=== PATIENT | female | born 1950 | race Caucasian/White ===

== ENCOUNTER → 2019-10-21 14:17 | Outpatient (CLI) | payer OTHER, MEDICARE, SELFPAY ==
--- NOTE | ~2019-10-21 | DEXA_ITS ---
Bone Density Report Name: Sheree Cheng Age: 69 Sex: Female Ethnicity: White Date of : 1950 Indication: monitoring treatment; height loss; hysterectomy; postmenopausal Referring Provider: MARTHA SWEENEY Study: Bone densitometry was performed. Exam Date: October 21, 2019 Accession number: [id number] Bone Density: Region BMD T-score Z-score Classification AP Spine (L1-L4) 1.108 0.6 2.5 Normal Femoral Neck (Left) 0.896 0.4 2.1 Normal Total Hip (Left) 1.029 0.7 2.1 Normal Femoral Neck (Right) 0.864 0.1 1.8 Normal Total Hip (Right) 0.959 0.1 1.5 Normal Total Hip Mean 0.994 0.4 1.8 Normal World Health Organization criteria for BMD impression classify patients as: Normal (T-score at or above -1.0), Osteopenia (T-score between -1.0 and -2.5), or Osteoporosis (T-score at or below -2.5). 10-year Fracture Risk: FRAX not reported because: All T-scores for Spine Total, Hip Total, Femoral Neck at or above -1.0 Treated for osteoporosis Previous Exams: Region Exam Age BMD T-score BMD Change BMD Change Date g/cm2 vs Baseline vs Previous AP Spine(L1-L4) 10/21/2019 69 1.108 0.6 0.022 0.022 10/27/2008 58 1.087 0.4 Total Hip(Left) 10/21/2019 69 1.029 0.7 0.065* 0.065* 10/27/2008 58 0.965 0.2 Total Hip(Right) 10/21/2019 69 0.959 0.1 -0.007 -0.007 10/27/2008 58 0.966 0.2 *Denotes significance at 95% confidence level, LSC for AP Spine = 0.022 g/cm2, LSC for Total Hip = 0.027 g/cm2 Clinical Information Provided by Patient: Is being treated for osteoporosis Has used the following medications: HRT (i.e. estrogen/hormone therapy), Calcium Has the following medical conditions: Hysterectomy Patient maximum height was 65.75 Menopause Age: 35 No regular weight bearing exercise Does not regularly consume dairy products Drinks caffeinated beverages Onset of menses at age 16 Number of children 4 Impression: The patient has normal bone mass. No significant bone loss was observed. Discussion: PATIENT UNDER TREATMENT WITH NO SIGNIFICANT BMD LOSS SINCE LAST EXAM. In an untreated patient, BMD typically declines with age. A lack of decline or gain is usually a sign that treatment is efficacious and fracture risk is reduced. It is important to ask patients whether they are taking their medications and to encourage continued and appropriate compliance with their osteoporosi
--- NOTE | ~2019-10-21 | MM_ITS ---
EXAMINATION: MM scrn mackenzie implant BI w hugo HISTORY: Screening mammogram TECHNIQUE: Craniocaudal and mediolateral oblique 3-D tomosynthesis images with implant displacement a nd synthetic 2-D images were generated. Craniocaudal and mediolateral oblique views of the breasts wi thout implant displacement were obtained using full field digital mammography. CAD analysis was submi tted and interpreted. COMPARISON: 12/12/2011, 02/14/2009 BREAST PARENCHYMAL COMPOSITION: There are scattered areas of fibroglandular density. FINDINGS: There is no evidence of suspicious mass, calcification, or architectural distortion to sugg est malignancy in either breast. There has been no suspicious interval change. IMPRESSION: 1. No mammographic evidence of malignancy. 2. Recommend routine screening mammography in one year. BI-RADS Category 1: Negative Reviewed, dictated and finalized at location A. 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
== END ==
PROVIDERS: PCP Family Medicine; Visit Provider Obstetrics & Gynecology Gynecology
DX: Z12.31 Encounter for screening mammogram for malignant neoplasm of breast (principal); Z78.0 Asymptomatic menopausal state
CPT/HCPCS: 77063; 77067; 77080

== ENCOUNTER → 2020-11-03 01:04 | Outpatient (CLI) | payer MEDICARE, SELFPAY ==
[2020-11-03 19:48] LABS: SARS-CoV-2 RNA PCR Negative
== END ==
PROVIDERS: Family Provider Internal Medicine; PCP Family Medicine; Visit Provider Internal Medicine Gastroenterology
DX: Z01.812 Encounter for preprocedural laboratory examination (principal); Z20.822 Contact with and (suspected) exposure to COVID-19
CPT/HCPCS: C9803; U0003; U0005

== ENCOUNTER 2020-11-06 00:43 | Day surgery (SDC) | payer MEDICARE, SELFPAY ==
[2020-10-17 14:02] VITALS: BMI 33.3
[2020-11-06 08:04] VITALS: BP 136/89; PULSE 98; RESP 18; TEMP 36.4; O2SAT 98; BMI 33.4
[2020-11-06] MEDS: LACTATED RINGERS 1,000 ML 150 ML IV CONT (08:20)
--- NOTE | 2020-11-06 08:47 | WPDANESEPPF ---
Anes - Initial Pre Proc Eval Procedure: Operation Date: 11/06/20 09:15 Proposed Procedures p Screening Colonoscopy - Erick Sinclair MD Date/Time: 11/06/20 08:47 Surgeon: Erick Sinclair MD Pre Op Diagnosis: Hx of Colon Polyps Patient Data Age: 70 Gender: F Height: 5 ft 5 in Weight: 91.2 kg Last Vital Signs Temp 36.4 C L 11/06/20 08:04 Pulse 98 11/06/20 08:04 Resp 18 11/06/20 08:04 BP 136/89 11/06/20 08:04 Pulse Ox 98 11/06/20 08:04 Allergies Allergy/AdvReac Type Severity Reaction Status Date / Time No Known Allergies Allergy Verified 11/06/20 08:03 Home Medications Medication Instructions Recorded Confirmed Type ergocalciferol (vitamin D2) 1,250 1,250 mcg PO WEEKLY #12 cap 08/02/20 10/17/20 Rx mcg (50,000 unit) capsule fluticasone propionate 50 1 spray INTRANASAL DAILY 08/14/20 10/17/20 History mcg/actuation nasal spray,suspension gabapentin 300 mg capsule 300 mg PO DAILY #30 cap 08/14/20 10/17/20 Rx lorazepam 1 mg tablet 1 mg PO DAILY PRN #30 tablet 08/14/20 10/17/20 Rx omeprazole 40 mg capsule,delayed 40 mg PO DAILY #90 cap 08/14/20 10/17/20 Rx release cetirizine [Zyrtec] 10 mg PO DAILY 10/17/20 10/17/20 History phentermine 15 mg PO DAILY 10/17/20 10/17/20 History Patient hx anesthesia problems: none Family hx anesthesia problems: none PMFSH Past Medical History Medical History Anxiety Cataract Colonic polyp Mixed hyperlipidemia Surgical History Surgical History H/O shoulder surgery History of esophagogastroduodenoscopy esophageal erosion History of partial hysterectomy Hx of breast implants, bilateral Hx of cholecystectomy Family History Family History Unknown Metastatic cancer Diabetes mellitus Heart failure Mother Family history of diabetes mellitus in first degree relative Other Family history of cardiovascular disease Hypertension Social History Social History Smoking packs per day: 1 Smoking cigarettes per day: 20.0 Years smoked: 25 Smoking pack-years: 25.00 Smoking status: Former smoker Tobacco type: cigarettes Second hand tobacco smoke exposure: No Alcohol intake: never Substance use: never Substance use type: does not use Living arrangements: with family Gender identity (if verbalized by the patient): Female Spiritual care concerns: No Anes - Eval Final PreProcedure Day of Procedure 11/06/20 08:47 Patient weight: obese Heart: regular rate and rhythm Lungs: clear to auscultation Airway: Mallampati scale class II Neurological: alert and oriented Last oral intake: >/= 8 hours ASA classification: II Emergent: no Anesthetic plan: proceed Anesthesia type and monitoring: general GIVS and standard monitoring Informed Consent: The patient's anesthetic plan and its attendant risks and benefits were discussed with the patient/family/POA. Questions were solicited and answers provided to the satisfaction of the patient/family/POA.
--- NOTE | 2020-11-06 09:00 | PM.HPGS ---
History of Present Illness History of Present Illness Consent: Risks, benefits, and alternatives have been discussed and questions answered. Patient agrees to proceed with procedure. Chief complaint: Hx of Colon Polyps Narrative: Sheree Cheng is a 70 year old female with colon polyps about 3 years ago. Review of Systems Constitutional: Constitutional: Denies headache(s) and Denies weakness Eyes: Eyes: Denies blurry vision ENT: Reports Normal hearing present, Denies headache(s) and Denies neck pain Cardiovascular: Cardiovascular: Denies chest pain and Denies dyspnea Respiratory: Respiratory: Denies dyspnea Gastrointestinal: Gastrointestinal: Reports no additional gastrointestinal complaints Genitourinary: Genitourinary: Denies dysuria Musculoskeletal: Musculoskeletal: Denies neck pain Integumentary/Breasts: Skin/Breast: Denies dry skin Neurologic: Reports Normal hearing present, Denies headache(s) and Denies weakness Psychiatric: Psychiatric: Denies anxiety Endocrine: Endocrine: Denies change in body appearance Hematologic/Lymphatic: Hematologic/Lymphatic: Denies easy bleeding Allergic/Immunologic: Allergic/Immunologic: Denies urticaria PMFSH Past Medical History Medical History Anxiety Cataract Colonic polyp Mixed hyperlipidemia Surgical History Surgical History H/O shoulder surgery History of esophagogastroduodenoscopy esophageal erosion History of partial hysterectomy Hx of breast implants, bilateral Hx of cholecystectomy Family History Family History Unknown Metastatic cancer Diabetes mellitus Heart failure Mother Family history of diabetes mellitus in first degree relative Other Family history of cardiovascular disease Hypertension Social History Social History Smoking packs per day: 1 Smoking cigarettes per day: 20.0 Years smoked: 25 Smoking pack-years: 25.00 Smoking status: Former smoker Tobacco type: cigarettes Second hand tobacco smoke exposure: No Alcohol intake: never Substance use: never Substance use type: does not use Living arrangements: with family Gender identity (if verbalized by the patient): Female Spiritual care concerns: No Meds Home Medications and Allergies Home Medications Medication Instructions Recorded Confirmed Type ergocalciferol (vitamin D2) 1,250 1,250 mcg PO WEEKLY #12 cap 08/02/20 10/17/20 Rx mcg (50,000 unit) capsule fluticasone propionate 50 1 spray INTRANASAL DAILY 08/14/20 10/17/20 History mcg/actuation nasal spray,suspension gabapentin 300 mg capsule 300 mg PO DAILY #30 cap 08/14/20 10/17/20 Rx lorazepam 1 mg tablet 1 mg PO DAILY PRN #30 tablet 08/14/20 10/17/20 Rx omeprazole 40 mg capsule,delayed 40 mg PO DAILY #90 cap 08/14/20 10/17/20 Rx release cetirizine [Zyrtec] 10 mg PO DAILY 10/17/20 10/17/20 History phentermine 15 mg PO DAILY 10/17/20 10/17/20 History Allergies Allergy/AdvReac Type Severity Reaction Status Date / Time No Known Allergies Allergy Verified 11/06/20 08:03 Vital Signs Vital Signs - 24 hr 11/06/20 08:04 Temperature 97.5 F L Pulse Rate 98 Respiratory Rate 18 Blood Pressure 136/89 Pulse Oximetry 98 Exam Const: General: comfortable and no acute distress HENMT: General nose exam: Normal nares present Eyes: General: appearance normal, both eyes and all related structures Neck: Neck: no JVD Resp: Auscultation: clear to auscultation bilaterally Cardio: Rate: regular rate Rhythm: regular rhythm GI: Inspection: non-distended GI Palp: Yes Soft to palpation Skin: General skin exam: normal color Neuro: General: gait normal Speech: normal speech Extrem: General: normal to inspection Psych: Mental Status: mental sta
[2020-11-06 09:20] VITALS: BP 140/75; PULSE 85; RESP 22; O2SAT 99
[2020-11-06 09:30] VITALS: BP 121/75; PULSE 73; RESP 12; O2SAT 98
[2020-11-06 09:40] VITALS: BP 119/78; PULSE 74; RESP 18; O2SAT 100
== END 2020-11-06 09:50 | disposition home or self-care (01) ==
PROVIDERS: Family Provider Internal Medicine; PCP Family Medicine; Visit Provider Internal Medicine Gastroenterology
PROC: 0DJD8ZZ Inspection of Lower Intestinal Tract, Via Natural or Artificial Opening Endoscopic (ICD-10-PCS; CPT 45378; principal; 2020-11-06 09:15)
DX: Z12.11 Encounter for screening for malignant neoplasm of colon (principal); D12.3 Benign neoplasm of transverse colon; K63.5 Polyp of colon; E78.2 Mixed hyperlipidemia; H26.9 Unspecified cataract; K64.4 Residual hemorrhoidal skin tags; K64.8 Other hemorrhoids; F41.9 Anxiety disorder, unspecified; Z86.010 Personal history of colon polyps; Z87.891 Personal history of nicotine dependence; Z98.82 Breast implant status; Z90.49 Acquired absence of other specified parts of digestive tract; Z90.711 Acquired absence of uterus with remaining cervical stump
CPT/HCPCS: 45380; 88305; C9803; J2704; J7120; U0003; U0005

== ENCOUNTER → 2020-11-15 11:21 | Outpatient (CLI) | payer MEDICARE, SELFPAY ==
--- NOTE | ~2020-11-15 | MM_ITS ---
EXAMINATION: MM scrn mackenzie implant BI w hugo HISTORY: Screening mammogram TECHNIQUE: Craniocaudal and mediolateral oblique 3-D tomosynthesis images with implant displacement a nd synthetic 2-D images were generated. Craniocaudal and mediolateral oblique views of the breasts wi thout implant displacement were obtained using full field digital mammography. CAD analysis was submi tted and interpreted. COMPARISON: 10/21/2019, 12/12/2011 BREAST PARENCHYMAL COMPOSITION: The breasts are heterogeneously dense, which may obscure small masses . FINDINGS: There is no evidence of suspicious mass, calcification, or architectural distortion to sugg est malignancy in either breast. There has been no suspicious interval change. IMPRESSION: 1. No mammographic evidence of malignancy. 2. Recommend routine screening mammography in one year. BI-RADS Category 1: Negative Reviewed, dictated and finalized at location A. LEADER SURGERY
== END ==
PROVIDERS: PCP Family Medicine; Visit Provider Obstetrics & Gynecology Gynecology
DX: Z12.31 Encounter for screening mammogram for malignant neoplasm of breast (principal)
CPT/HCPCS: 77063; 77067

== ENCOUNTER 2020-11-20 15:01 | Outpatient (CLI) | payer MEDICARE, SELFPAY | END 2020-11-20 15:02 | disposition home or self-care (01) | LOC: ANHCOVIDVC 15:01 | PROVIDERS: PCP Family Medicine; Visit Provider Family Medicine | DX: Z23 Encounter for immunization (principal) | CPT/HCPCS: 0001A; 91300 ==

== ENCOUNTER 2020-12-11 15:01 | Outpatient (CLI) | payer MEDICARE, SELFPAY | END 2020-12-11 15:02 | disposition home or self-care (01) | LOC: ANHCOVIDVC 15:01 | PROVIDERS: PCP Family Medicine | DX: Z23 Encounter for immunization (principal) | CPT/HCPCS: 0002A; 91300 ==

== ENCOUNTER → 2022-09-09 13:10 | Outpatient (CLI) | payer MEDICARE, SELFPAY ==
--- NOTE | ~2022-09-09 | MM_ITS ---
EXAMINATION: MM scrn mackenzie implant BI w hugo HISTORY: Screening mammogram TECHNIQUE: Craniocaudal and mediolateral oblique 3-D tomosynthesis images with implant displacement a nd synthetic 2-D images were generated. Craniocaudal and mediolateral oblique views of the breasts wi thout implant displacement were obtained using full field digital mammography. CAD analysis was submi tted and interpreted. COMPARISON: Comparison to multiple prior studies sequentially, with oldest reviewed study dated 10/21. BREAST PARENCHYMAL COMPOSITION: There are scattered areas of fibroglandular density. FINDINGS: There are bilateral subglandular saline implants. There is no evidence of suspicious mass, calcification, or architectural distortion to suggest malignancy in either breast. There has been no suspicious interval change. IMPRESSION: 1. No mammographic evidence of malignancy. 2. Recommend routine screening mammography in one year. BI-RADS Category 1: Negative Reviewed, dictated and finalized at location A. HER COLORER
== END ==
PROVIDERS: PCP Family Medicine; Visit Provider Physician Assistant
DX: Z12.31 Encounter for screening mammogram for malignant neoplasm of breast (principal)
CPT/HCPCS: 77063; 77067

== ENCOUNTER → 2022-10-29 12:28 | Outpatient (CLI) | payer MEDICARE, SELFPAY ==
--- NOTE | ~2022-10-29 | XR_ITS ---
EXAMINATION: XR chest 2V DATE: 10/29/2022 12:43 INDICATION: Cough. TECHNIQUE: Frontal and lateral views of the chest were obtained. COMPARISON: Chest 2 views 07/19/2019 FINDINGS: The chest demonstrates clear lungs without pneumonia, pleural effusion, or pneumothorax. Th e heart size is normal. There are surgical clips in the abdomen. IMPRESSION: 1. No acute cardiopulmonary disease. Reviewed, dictated and finalized at location A. UNTS PAYABLE LEAD
== END ==
PROVIDERS: PCP Family Medicine; Visit Provider Physician Assistant Medical
DX: R05.9 Cough, unspecified (principal)
CPT/HCPCS: 71046

== ENCOUNTER 2022-12-25 08:16 | Outpatient (CLI) | payer MEDICARE, SELFPAY ==
--- NOTE | ~2022-12-25 | XR_ITS ---
MODIFIED ESOPHAGRAM HISTORY: Dysphagia. TECHNIQUE: Modified barium esophagram was performed on 12/25/2022. I administered fluoroscopy and perfo rmed the exam with speech pathologist. Patient was seated for lateral fluoroscopic imaging for inges tion of thin liquids, pudding, solids and quantified amounts, followed by thin liquids in uncontrolle d amounts. This was recorded on tape. A total of 411 fluoroscopic images were recorded. The DAP for t his procedure was 2.61 Gycm2. The amount of fluoroscopy time used during this procedure was 2.4 minut es. FINDINGS: Oral stage: Adequate function. Pharyngeal stage: Reduced tongue base retraction. There is trace laryngeal penetration which cleared with swallow. No aspiration. Suggestion of a transient or mobile filling defect along the left side o f the hypopharynx on real-time imaging, difficult to appreciate on the recorded images. Cervical/esophageal stage: Intermittent accumulation of residue along the cephalad margin of a promin ent cricopharyngeus muscle. IMPRESSION: 1. Mild pharyngeal dysphagia with transient trace laryngeal penetration without aspiration. Please c orrelate with speech pathologist findings and specific feeding recommendations. 2. Suggestion of a filling defect at the left side of the hypopharynx suspicious for polyp or other n eoplasm either benign or malignant. Recommend endoscopy for further evaluation. Reviewed, dictated and finalized at location A. IMPRESSION: 1. Mild pharyngeal dysphagia with transient trace laryngeal penetration without aspiration. Please correlate with speech pathologist findings and specific fe eding recommendations. 2. Suggestion of a filling defect at the left side of the hypopharynx suspiciou s for polyp or other neoplasm either benign or malignant. Recommend endoscopy f or further evaluation.
--- NOTE | ~2022-12-25 | XR_ITS ---
EXAMINATION: XR UGIAC wo kub DATE: 12/25/2022 09:30 INDICATION: Dysphagia. TECHNIQUE: The patient drank thick barium, gas-producing crystals, and thin barium. A total of fluoro scopic images of the esophagus, stomach, and proximal small bowel were obtained. Fluoroscopy exposure time was minutes. COMPARISON: None. FINDINGS: There is a prominent cricopharyngeus muscle at the upper esophageal sphincter. The more cau harpreet esophagus is normal without mass or stricture. Esophageal motility is normal. There is no hiatal hernia. There was no gastroesophageal reflux with provocative maneuvers. The stomach and proximal sma ll bowel are normal. IMPRESSION: 1. Prominent cricopharyngeus muscle at the upper esophageal sphincter. Otherwise normal upper GI stud y. Reviewed, dictated and finalized at location A. IMPRESSION: 1. Prominent cricopharyngeus muscle at the upper esophageal sphincter. Otherwis e normal upper GI study.
--- NOTE | 2022-12-25 09:53 | REHSTMBS ---
Assessment and note entered by Claudia Dupree, SPECIAL MAKEUP FX ARTIST INSTRUCTOR Modified Barium Swallow Evaluation Feeding Type Recommended Oral Food Consistency Regular, Level 7 Liquid Consistency Thin (0) Treatment Recommendations Laryngeal Elevation Exerc,Yoko Maneuver ST Clinical Summary MODIFIED BARIUM SWALLOW STUDY This patient was seen for a Modified Barium Swallow study at the request of her physician. Patient reports that she has had polyps removed from the back of (her) throat in the past. Currently she reports difficulty swallowing solids and liquids and reported that she has even had water ejected from her mouth when attempting to swallow it. Today the patient was viewed in the lateral position to the level of C5/C6 and also was viewed in the A-P position. She was given thin liquid contrast medum per cup and per straw, pudding mixed with semi-solid contrast medium, and then fruit pieces and a piece of francisco cracker, both coated with the semi-solid mixture. She exhibited quick swallows however they were noted to be effortful with multiple swallows used on each presentation to clear all of the material. She also exhibited trace material reaching the entrance to the upper laryngeal vestibule given liquids per straw however this material consistently cleared with her swallow. Patient also exhibited unusual response at the level of the cricopharyngeus. Please refer to radiology report for those findings. Patient was instructed in the use of head flexion to assist with decreased risk for penetration/ aspiration. She would benefit from direct Speech Therapy to address adding laryngeal elevation and base of tongue retraction exercises for improving the strength of airway protection. Please order Speech Therapy and fax to [facility] at the [facility] if in agreement. Thank you for this referral.
== END 2022-12-25 08:17 | disposition home or self-care (01) ==
PROVIDERS: PCP Family Medicine; Visit Provider Nurse Practitioner Family
DX: R13.10 Dysphagia, unspecified (principal)
CPT/HCPCS: 74246; 92611

== ENCOUNTER 2023-04-25 11:28 | Outpatient (CLI) | payer MEDICARE, SELFPAY ==
--- NOTE | ~2023-04-25 | XR_ITS ---
Right Hand Technique: PA, oblique, and lateral views were obtained. Clinical History: Fifth finger pain Findings: No acute fracture or dislocation is seen. Osseous alignment is anatomic. There is mild dege nerative change of the interphalangeal joint of the thumb, and throughout the DIP joints, worst at th e fifth DIP joint.. Soft tissues are unremarkable. Impression: No fracture or dislocation. Degenerative changes of the interphalangeal joint of the thumb and DIP joints, as detailed above. Reviewed, dictated and finalized at location M. Impression: No fracture or dislocation. Degenerative changes of the interphalangeal joint of the thumb and DIP joints, as detailed above.
== END 2023-04-25 11:29 | disposition home or self-care (01) ==
PROVIDERS: PCP Family Medicine; Visit Provider Plastic Surgery
DX: M19.041 Primary osteoarthritis, right hand (principal)
CPT/HCPCS: 73130

== ENCOUNTER 2024-04-08 13:46 | Outpatient (CLI) | payer MEDICARE, SELFPAY ==
--- NOTE | ~2024-04-08 | MM_ITS ---
EXAMINATION: MM scrn mackenzie implant BI w hugo HISTORY: Screening mammogram TECHNIQUE: Craniocaudal and mediolateral oblique 3-D tomosynthesis images with implant displacement a nd synthetic 2-D images were generated. Craniocaudal and mediolateral oblique views of the breasts wi thout implant displacement were obtained using full field digital mammography. CAD analysis was submi tted and interpreted. COMPARISON: Comparison to multiple prior studies sequentially, with oldest reviewed study dated 10/21. BREAST PARENCHYMAL COMPOSITION: Not dense: There are scattered areas of fibroglandular density. FINDINGS: There is no evidence of suspicious mass, calcification, or architectural distortion to sugg est malignancy in either breast. There has been no suspicious interval change. IMPRESSION: 1. No mammographic evidence of malignancy. 2. Recommend routine screening mammography in one year. BI-RADS Category 1: Negative Reviewed, dictated and finalized at location B.
== END 2024-04-08 13:47 | disposition home or self-care (01) ==
LOC: CHSIMG 13:49
PROVIDERS: PCP Family Medicine; Visit Provider Nurse Practitioner Women's Health
DX: Z12.31 Encounter for screening mammogram for malignant neoplasm of breast (principal)
CPT/HCPCS: 77063; 77067

== ENCOUNTER 2024-06-03 10:30 | Outpatient (CLI) | payer OTHER, SELFPAY ==
--- NOTE | 2024-06-03 10:30 | ECG_ITS ---
Test Date: 2024-06-03 10:51:59 Measurements Intervals [place] Rate: 76 P: 47 [place]: 179 QRS: 27 QRSD: 87 T: 7 QT: 360 QTc: 407 Interpretive Statements SINUS RHYTHM LEFT VENTRICULAR HYPERTROPHY NONSPECIFIC ST & T-WAVE ABNORMALITY- INF/LAT LEADS BASELINE ARTIFACT- I, II, III, AVR, AVL, AVF BORDERLINE ECG No previous ECG available for comparison Electronically Signed On 06-03-2024 11:03:11 CDT by Jh Davis D.O.
== END 2024-06-03 10:31 | disposition home or self-care (01) ==
LOC: ANHSURGERY 10:36
PROVIDERS: PCP Family Medicine; Visit Provider Surgery Plastic and Reconstructive Surgery
DX: F17.210 Nicotine dependence, cigarettes, uncomplicated (principal); Z01.818 Encounter for other preprocedural examination
CPT/HCPCS: 93005

== ENCOUNTER 2024-06-07 02:39 | Day surgery (SDC) | payer OTHER, SELFPAY ==
--- NOTE | 2024-05-27 09:40 | PC.NURSE ---
Report to the Outpatient Waiting Room, entrance under the green pavilion located off [facility], at time _6 AM on date _06/07/24 . Planned Procedure Time: 7:30 AM .? Time changes happen often and if your time is changed the preop area will call you the afternoon before. - You and your visitor will be asked to self-screen and do not enter if you have any COVID symptoms. Please call surgeon if you need to reschedule. - A mask is optional within the hospital at this time. Patients may have clear liquids (water, carbonated beverages, clear teas, apple juice) until 3 hours prior to surgery( 4:30 AM) with a maximum of 20 ounces. - No food from midnight until time of surgery and no smoking - Infants may have breast milk until 4 hours before surgery, infant formula 6 hours prior to surgery. - Children will be allowed to drink immediately following surgery.? If applicable, please bring a bottle or sippy cup to assist with drinking. Juice, water, soda, and popsicles are readily available.? For infants on formula, please bring formula the day of surgery.? Pacifiers are allowed. Take only the following medications with a SIP of water on the morning of surgery: _LORAZEPAM IF NEEDED FOR ANXIETY,SERTRALINE DO NOT STOP ANY OF YOUR OTHER PRESCRIPTION MEDICATIONS PRIOR TO SURGERY EXCEPT THE FOLLOWING Medications to discontinue per physician _PT STATES HOLD ASPIRIN,NAPROXEN, FISH OIL 2 WK PRIOR TO SURGERY PER DR GREEN LAST DOSE 05/26/24 Please no make-up, nail wolof, hairspray, perfume, deodorant, or body powder the day of surgery.? No jewelry (including any body piercings) or valuables the day of surgery, leave them at home.? Please take a shower or bath the night before, or the morning of, surgery with an antibacterial soap.? Wear comfortable, loose fitting clothing.? Children are encouraged to wear pajamas. - Jewelry must be removed prior to entering the operating room.? Rings and piercings that are not removed may be cut off. - The hospital will not accept responsibility for valuables.? - Please leave all valuables, including medications, at home the day of surgery. If you are going home after surgery, a licensed utility driver must drive you home.? - NO public transportation without another adult if you receive anesthesia. - We recommend that an adult stay with you for 24 hours following discharge. - We also recommend that you do not drive, make important decision, drink alcoholic beverages, or take any drugs that were not prescribed by your health care provider for at least 24 hours after your discharge time. Follow any additional instructions given to you from your surgeon. Telephone instructions given to __PT and asked if any additional questions and then verbalized understanding. Patient advised to call surgeon office or pre surgery nurse liaison [phone] if any additional questions.
[2024-05-27 09:49] VITALS: BMI 32.8
[2024-06-07] VITALS (12 sets, daily range): BP systolic 125–161; BP diastolic 73–104; PULSE 68–85; RESP 10–21; TEMP 36.4–37.6; O2SAT 96–100
[2024-06-07] MEDS: LACTATED RINGERS 1,000 ML 30 ML IV CONT ×2 (06:30→09:06)
--- NOTE | 2024-06-07 07:18 | WPDHPUPDATE1 ---
History and Physical Update Update Date/Time: 06/07/24 07:18 History and Physical has been reviewed, including an updated exam of the patient. There are NO changes in the patient's condition. Risks, benefits, and alternatives have been discussed and questions answered. Patient agrees to proceed with procedure.
--- NOTE | 2024-06-07 07:18 | W.PM.PROC2 ---
Procedure Note - Detailed Date of Procedure 06/07/24 Pre-op Diagnosis hx of breast augmentation Post-op Diagnosis Same Procedure Performed Bilateral implant exchange Surgeon Isaias Carroll MD Anesthesia General Findings Previous implants: Bilateral [id number] smooth. Right ruptured, left intact New implants: Bilateral 465cc filled to 505cc Right REF# [id number] SN# [id number] Left REF# [id number] SN# [id number] Description of Procedure Preoperatively the risks, benefits, alternatives were discussed in extensive detail. I wanted to be very realistic about the risks involved as well as expectations. I was clear about how we could actually make her worse. Answered all questions to satisfaction. Voiced a clear understanding. Consent obtained. She was taken the operating room placed supine on the operating room table. Anesthesia provided by anesthesiology and prepped and draped in a standard sterile fashion. Surgical time-out was taken. 1% lidocaine and 0.25% Marcaine with epinephrine was used to provide a field block. Tegaderm nipple saunders were placed. Fifteen blade used to excise the previous IMF scars. Dissection was continued down until the capsules were identified and incised. Implants removed (right ruptured, left intact). I then copiously irrigated with 3 L of saline solution on TUR tubing. Verified strict hemostasis. Bilateral medial capsulotomy completed as well as lateral capsulorraphy (left more than right). Verified hemostasis. I then irrigated with Betadine containing solution. Air removed on the back table, introduced into the pocket, and filled with universal fill kit to volumes as above. This was closed with 2-0 PDS followed by 3-0 Monocryl and a running subcuticular 4-0 Monocryl followed by tissue glue. Dressings were placed. She was woken taken to the PACU without difficulty. All instrument sponge counts were correct at the end of the case. Estimated Blood Loss 30 Drains No Packing No Pathology None sent Complications No immediate complications Condition Stable
[2024-06-07] MEDS: ceFAZolin 2 GM/D5W 50 ML 2 GM/50 ML BAG IVPB (07:33)
[2024-06-07] MEDS: BUPivacaine HCL 0.25% PF 30 ML VIAL INFILTRATE (07:33)
[2024-06-07] MEDS: TRANEXAMIC ACID 1,000MG/ISO100 1,000 MG/100 ML BAG 200 MG IVPB (07:33)
[2024-06-07] MEDS: LIDO 1%/EPINEPHRINE 1:100,000 50 ML VIAL 30 ML INFILTRATE (07:33)
[2024-06-07] MEDS: NACL 0.9% IRRIG POUR BOTTLE 900 ML, GENTAMICIN SULFATE INJ 160 MG, ceFAZolin 2 GM, POVI... IRRIGATION (07:33)
--- NOTE | 2024-06-07 08:22 | WPDANESEPP ---
Anes - Eval Pre Procedure Procedure: Operation Date: 06/07/24 07:30 Proposed Procedures p Bilateral Breast Implant Exchange - Isaias Carroll MD Date/Time: 06/07/24 08:22 Surgeon: Carly Pre Op Diagnosis: hx of breast augmentation Patient Data Age: 73 Gender: F Height: 1.65 m Weight: 91.2 kg Last Vital Signs Temp 36.4 C 06/07/24 07:00 Pulse 78 06/07/24 07:00 Resp 18 06/07/24 07:00 BP 125/73 06/07/24 07:00 Pulse Ox 97 06/07/24 07:00 O2 Del Method Room Air 06/07/24 07:00 Allergies Allergy/AdvReac Type Severity Reaction Status Date / Time No Known Allergies Allergy Verified 06/07/24 08:03 Home Medications Medication Instructions Recorded Confirmed Type aspirin 81 mg tablet,delayed 81 mg PO DAILY 07/16/22 06/07/24 History release ubidecarenone-omega 3-vit E 25 1 cap PO DAILY 07/16/22 06/07/24 History mg-150 (90-60) mg-200 unit capsule (Co D-39-Qiabtxu E-Fish Oil) fexofenadine 60 mg-pseudoephedrine 1 tablet PO Q12H PRN allergy 11/24/23 06/07/24 Rx ER 120 mg tablet,ext.release,12 hr symptoms #60 tabs (Darlin-D 12 Hour) omeprazole 40 mg capsule,delayed 40 mg PO BID #180 caps 12/27/23 06/07/24 Rx release sertraline 25 mg tablet 25 mg PO DAILY #90 tabs 03/14/24 06/07/24 Rx trazodone 150 mg tablet 150 mg PO QHS PRN insomnia #30 tabs 03/23/24 06/07/24 Rx celecoxib 100 mg capsule 100 mg PO BID 05/27/24 06/07/24 History cyclobenzaprine 10 mg tablet 10 mg PO TID 05/27/24 06/07/24 History famotidine 40 mg tablet 40 mg PO HS 05/27/24 06/07/24 History lorazepam 1 mg tablet 1 mg PO PRN PRN anxiety 05/27/24 06/07/24 History multivitamin (Daily Multi-Vitamin 1 tablet PO DAILY 05/27/24 06/07/24 History tablet) naproxen 500 mg tablet 500 mg PO BID 05/27/24 06/07/24 History : patient denies Patient hx anesthesia problems: none Family hx anesthesia problems: none Prior surgeries: Breast Augmentation Results Review: All pre-operative results and documents have been reviewed as part of the pre-operative evaluation. [facility] Past Medical History Medical History Anxiety Cataract Colonic polyp Encounter for immunization Hemorrhoids, internal Insomnia Irritable bowel syndrome with constipation Mixed hyperlipidemia Surgical History Surgical History H/O elbow surgery H/O shoulder surgery History of esophagogastroduodenoscopy esophageal erosion History of partial hysterectomy Hx of breast implants, bilateral Hx of cholecystectomy Family History Family History Unknown Metastatic cancer Diabetes mellitus Heart failure Mother Family history of diabetes mellitus in first degree relative Sibling Breast cancer Sibling COPD (chronic obstructive pulmonary disease) Heart failure Other Family history of cardiovascular disease Hypertension Social History Social History Smoking packs per day: 1 Smoking cigarettes per day: 20.0 Years smoked: 25 Smoking pack-years: 25.00 Smoking status: Former smoker Tobacco type: cigarettes Second hand tobacco smoke exposure: No Smoking end date: 09/21/02 Additional smoking assessment comments: She quit 20 years ago. Alcohol intake: current Drinks per week: 1 Alcohol use details: occasionally Substance use: never Substance use type: does not use Lack of Transportation: No Lack of Food: Never True Current Housing: I Have Housing Concerned About Future Housing: No Difficulty Paying Gas/Electric Bills: No Difficulty Paying for Meds: No Currently Unemployed: No Education: High School Diploma/GED Difficulty w/ Childcare or Family Care: No Living arrangements: with family Occupation/Education: retired Gender i
[2024-06-07] MEDS: fentaNYL CITRATE INJ (*CRX) 100 MCG/2 ML VIAL 25 MCG IV PUSH ×8 (09:00→09:16)
[2024-06-07] MEDS: HYDROmorphone HCL INJ (*CRX) 1 MG/ML SYR IV PUSH (09:41)
[2024-06-07] MEDS: oxyCODONE HCL (*CRX) 5 MG TAB IR PO (10:28)
== END 2024-06-07 11:40 | disposition home or self-care (01) ==
PROVIDERS: PCP Family Medicine; Visit Provider Surgery Plastic and Reconstructive Surgery
PROC: (CPT 19342; principal; 2024-06-07 07:30)
DX: Z41.1 Encounter for cosmetic surgery (principal); T85.41XA Breakdown (mechanical) of breast prosthesis and implant, initial encounter; Y83.8 Other surgical procedures as the cause of abnormal reaction of the patient, or of later complication, without mention of misadventure at the time of the procedure; E78.2 Mixed hyperlipidemia; K58.2 Mixed irritable bowel syndrome; F41.9 Anxiety disorder, unspecified; Z79.82 Long term (current) use of aspirin; Z87.891 Personal history of nicotine dependence; E66.9 Obesity, unspecified; Z68.33 Body mass index [BMI] 33.0-33.9, adult
CPT/HCPCS: 19370; 19325; A9270; J0690; J1100; J1170; J1580; J2405; J2704; J3010; J7120

== ENCOUNTER 2024-06-14 01:07 | Day surgery (SDC) | payer OTHER, SELFPAY ==
[2024-06-13 11:02] VITALS: BMI 32.8
--- NOTE | 2024-06-13 11:13 | PC.NURSE ---
Report to the Outpatient Waiting Room, entrance under the green pavilion located off [facility], at time __6AM on date _06/14/24 . Planned Procedure Time: ___730 .? Time changes happen often and if your time is changed the preop area will call you the afternoon before. - You and your visitor will be asked to self-screen and do not enter if you have any COVID symptoms. Please call surgeon if you need to reschedule. - A mask is optional within the hospital at this time. Patients may have clear liquids (water, carbonated beverages, clear teas, apple juice) until 3 hours prior to surgery (4:30 AM)with a maximum of 20 ounces. - No food from midnight until time of surgery and no smoking - Infants may have breast milk until 4 hours before surgery, infant formula 6 hours prior to surgery. - Children will be allowed to drink immediately following surgery.? If applicable, please bring a bottle or sippy cup to assist with drinking. Juice, water, soda, and popsicles are readily available.? For infants on formula, please bring formula the day of surgery.? Pacifiers are allowed. Take only the following medications with a SIP of water on the morning of surgery: __LORAZEPAM IF NEEDED FOR ANXIETY,SERTRALINE DO NOT STOP ANY OF YOUR OTHER PRESCRIPTION MEDICATIONS PRIOR TO SURGERY EXCEPT THE FOLLOWING Medications to discontinue per physician __PT STATES HAS NOT TAKEN ASPIRIN,CELECOXIB,MULTIVITAMIN,NAPROXEN,_AND COQ 1O SINCE 05/26/24 Please no make-up, nail luxembourgish, hairspray, perfume, deodorant, or body powder the day of surgery.? No jewelry (including any body piercings) or valuables the day of surgery, leave them at home.? Please take a shower or bath the night before, or the morning of, surgery with an antibacterial soap.? Wear comfortable, loose fitting clothing.? Children are encouraged to wear pajamas. - Jewelry must be removed prior to entering the operating room.? Rings and piercings that are not removed may be cut off. - The hospital will not accept responsibility for valuables.? - Please leave all valuables, including medications, at home the day of surgery. If you are going home after surgery, a licensed subway train driver must drive you home.? - NO public transportation without another adult if you receive anesthesia. - We recommend that an adult stay with you for 24 hours following discharge. - We also recommend that you do not drive, make important decision, drink alcoholic beverages, or take any drugs that were not prescribed by your health care provider for at least 24 hours after your discharge time. For Pediatric surgeries, we recommend two adults accompany the child home. Follow any additional instructions given to you from your surgeon. Telephone instructions given to _PT and asked if any additional questions and then verbalized understanding. Patient advised to call surgeon office or pre surgery nurse liaison [phone] if any additional questions.
[2024-06-14] VITALS (8 sets, daily range): BP systolic 114–147; BP diastolic 55–94; PULSE 68–110; RESP 8–18; TEMP 36.1–36.8; O2SAT 93–100
[2024-06-14] MEDS: LACTATED RINGERS 1,000 ML 30 ML IV CONT ×2 (06:45→08:42)
--- NOTE | 2024-06-14 07:06 | P.OP_ITS ---
Procedure Note - Detailed Date of Procedure 06/14/24 Pre-op Diagnosis Hx of Breast Aug, Hematoma Right Breast Post-op Diagnosis Same Procedure Performed Right breast washout / implant exchange Surgeon Isaias Carroll MD Anesthesia General Indications She underwent bilateral implant exchange for right breast implant rupture. Subsequently significant right upper pole fullness and tenderness. In office ultrasound completed with no clear hematoma noted; however, right breast with appearance fluid collection. After hearing all her options as well as risks, benefits, and alternatives of each she has elected to proceed to the OR for right breast washout and possible implant exchange out of an abundance of caution. Findings Right breast no hematoma. Implant removed. Capsule work to ensure full release. Washout with 1,500 saline. Following the procedure patient placed in sitting position and implant position much improved. Replacement right implant: 465cc saline filled to 505 cc [id number] SN [id number] Description of Procedure Preoperatively the risks, benefits, alternatives were discussed in extensive detail. I wanted to be very realistic about the risks involved as well as expectations. I was clear about how we could actually make her worse. Answered all questions to satisfaction. Voiced a clear understanding. Consent obtained. She was taken the operating room placed supine on the operating room table. Anesthesia provided by anesthesiology and prepped and draped in a standard sterile fashion. Surgical time-out was taken. 1% lidocaine and 0.25% Marcaine with epinephrine was used to provide a field block. Tegaderm nipple saunders were placed. Fifteen blade used to excise the previous IMF scar on the right. Dissection was continued down until the implant was identified. Implant was removed. No hematoma noted. I completed capsulotomy / capsulectomy of lower pole. I then copiously irrigated with 1,500 L of saline solution on TUR tubing. Verified strict hemostasis. I then irrigated with Betadine containing solution. On the back table prepared the implant removing all air. Introduced into the pocket and filled using a universal fill kit to the volume as above. Removed the fill tubing and verified the valve was seated. This was closed with 2-0 PDS followed by 3-0 Monocryl and a running subcuticular 4-0 Monocryl followed by tissue glue. I verified po sition while sitting. Dressings were placed. She was woken taken to the PACU without difficulty. All instrument sponge counts were correct at the end of the case. Estimated Blood Loss 10 Drains No Packing No Pathology None sent Complications No immediate complications Condition Stable Disposition PACU
--- NOTE | 2024-06-14 07:06 | WPDHPUPDATE1 ---
History and Physical Update Update Date/Time: 06/14/24 07:06 History and Physical has been reviewed, including an updated exam of the patient. There are NO changes in the patient's condition. Risks, benefits, and alternatives have been discussed and questions answered. Patient agrees to proceed with procedure.
--- NOTE | 2024-06-14 07:22 | WPDANESEPPF ---
Anes - Initial Pre Proc Eval Procedure: Operation Date: 06/14/24 07:30 Proposed Procedures p Right Breast Washout with Possible Implant Exchange - Isaias Carroll MD Date/Time: 06/14/24 07:22 Surgeon: Isaias Carroll MD Pre Op Diagnosis: Hx of Breast Aug, Hematoma Right Breast Patient Data Age: 73 Gender: F Height: 1.65 m Weight: 89.4 kg Allergies Allergy/AdvReac Type Severity Reaction Status Date / Time No Known Allergies Allergy Verified 06/13/24 10:51 Home Medications Medication Instructions Recorded Confirmed Type aspirin 81 mg tablet,delayed 81 mg PO DAILY 07/16/22 06/13/24 History release ubidecarenone-omega 3-vit E 25 1 cap PO DAILY 07/16/22 06/13/24 History mg-150 (90-60) mg-200 unit capsule (Co D-63-Nptbvms E-Fish Oil) fexofenadine 60 mg-pseudoephedrine 1 tablet PO Q12H PRN allergy 11/24/23 06/13/24 Rx ER 120 mg tablet,ext.release,12 hr symptoms #60 tabs (Darlin-D 12 Hour) omeprazole 40 mg capsule,delayed 40 mg PO BID #180 caps 12/27/23 06/13/24 Rx release sertraline 25 mg tablet 25 mg PO DAILY #90 tabs 03/14/24 06/13/24 Rx trazodone 150 mg tablet 150 mg PO QHS PRN insomnia #30 tabs 03/23/24 06/13/24 Rx celecoxib 100 mg capsule 100 mg PO BID 05/27/24 06/13/24 History cyclobenzaprine 10 mg tablet 10 mg PO TID 05/27/24 06/13/24 History famotidine 40 mg tablet 40 mg PO HS 05/27/24 06/13/24 History lorazepam 1 mg tablet 1 mg PO PRN PRN anxiety 05/27/24 06/13/24 History multivitamin (Daily Multi-Vitamin 1 tablet PO DAILY 05/27/24 06/13/24 History tablet) naproxen 500 mg tablet 500 mg PO BID 05/27/24 06/13/24 History Patient hx anesthesia problems: none Family hx anesthesia problems: none Results Review: All pre-operative results and documents have been reviewed as part of the pre-operative evaluation. [facility] Past Medical History Medical History Anxiety Cataract Colonic polyp Encounter for immunization Hemorrhoids, internal Insomnia Irritable bowel syndrome with constipation Mixed hyperlipidemia Surgical History Surgical History H/O elbow surgery H/O shoulder surgery History of esophagogastroduodenoscopy esophageal erosion History of partial hysterectomy Hx of breast implants, bilateral Hx of cholecystectomy Family History Family History Unknown Metastatic cancer Diabetes mellitus Heart failure Mother Family history of diabetes mellitus in first degree relative Sibling Breast cancer Sibling COPD (chronic obstructive pulmonary disease) Heart failure Other Family history of cardiovascular disease Hypertension Social History Social History Smoking packs per day: 1 Smoking cigarettes per day: 20.0 Years smoked: 25 Smoking pack-years: 25.00 Smoking status: Former smoker Tobacco type: cigarettes Second hand tobacco smoke exposure: No Smoking end date: 09/21/02 Additional smoking assessment comments: She quit 20 years ago. Alcohol intake: current Drinks per week: 1 Alcohol use details: occasionally Substance use: never Substance use type: does not use Lack of Transportation: No Lack of Food: Never True Current Housing: I Have Housing Concerned About Future Housing: No Difficulty Paying Gas/Electric Bills: No Difficulty Paying for Meds: No Currently Unemployed: No Education: High School Diploma/GED Difficulty w/ Childcare or Family Care: No Living arrangements: with family Occupation/Education: retired Gender identity (if verbalized by the patient): Female Sexual Orientation (if Verbalized by the Patient): Straight or Heterosexual Spiritual care concerns: No Agree to blood products: Yes Anes - Eval Final PreProcedure
[2024-06-14] MEDS: NACL 0.9% IRRIG POUR BOTTLE 900 ML, GENTAMICIN SULFATE INJ 160 MG, ceFAZolin 2 GM, POVI... IRRIGATION (07:30)
[2024-06-14] MEDS: ceFAZolin 2 GM/D5W 50 ML 2 GM/50 ML BAG IVPB (07:30)
[2024-06-14] MEDS: LIDO 1%/EPINEPHRINE 1:100,000 20 ML VIAL 15 ML INFILTRATE (07:50)
[2024-06-14] MEDS: TRANEXAMIC ACID 1,000MG/ISO100 1,000 MG/100 ML BAG 200 MG IVPB (08:12)
[2024-06-14] MEDS: BUPivacaine HCL 0.25% PF 10 ML VIAL 15 ML INFILTRATE (08:16)
[2024-06-14] MEDS: fentaNYL CITRATE INJ (*CRX) 100 MCG/2 ML VIAL 25 MCG IV PUSH ×8 (08:55→09:30)
[2024-06-14] MEDS: oxyCODONE HCL (*CRX) 5 MG TAB IR PO (10:00)
== END 2024-06-14 10:39 | disposition home or self-care (01) ==
PROVIDERS: PCP Family Medicine; Visit Provider Surgery Plastic and Reconstructive Surgery
PROC: (CPT 19342; principal; 2024-06-14 07:30)
DX: T81.89XA Other complications of procedures, not elsewhere classified, initial encounter (principal); Y83.8 Other surgical procedures as the cause of abnormal reaction of the patient, or of later complication, without mention of misadventure at the time of the procedure; F41.9 Anxiety disorder, unspecified; E78.2 Mixed hyperlipidemia; K58.1 Irritable bowel syndrome with constipation; Z87.891 Personal history of nicotine dependence; E66.9 Obesity, unspecified; Z68.33 Body mass index [BMI] 33.0-33.9, adult; Z79.82 Long term (current) use of aspirin
CPT/HCPCS: 19371; 19325; A9270; J0690; J1100; J1580; J2250; J2405; J2704; J3010; J7030; J7120

== ENCOUNTER 2024-06-23 16:15 | Outpatient (CLI) | payer MEDICARE, SELFPAY ==
[2024-06-23 17:08] LABS: Influenza A QL RT-PCR Negative (Negative); Influenza B QL RT-PCR Negative (Negative); RSV RNA, RT-PCR Negative (Negative); SARS-CoV-2 RNA PCR Negative (Negative)
== END 2024-06-23 16:16 | disposition home or self-care (01) ==
LOC: ANHLAB 16:18
PROVIDERS: PCP Family Medicine; Visit Provider Student in an Organized Health Care Education/Training Program
DX: R05.9 Cough, unspecified (principal); R09.81 Nasal congestion; Z20.822 Contact with and (suspected) exposure to COVID-19
CPT/HCPCS: 87637

== ENCOUNTER 2024-06-28 10:10 | Emergency (ER) | payer MEDICARE, SELFPAY ==
--- NOTE | ~2024-06-28 | XR_ITS ---
CHEST RADIOGRAPH, PA AND LATERAL CLINICAL HISTORY: cough . COMPARISON: 10/29/2022 TECHNIQUE: PA and lateral views of the chest. Examination is limited by patient rotation. FINDINGS Increased interstitial markings identified adjacent to the right atrium. This is felt to be artifactu al secondary to patient rotation. The remainder of the cardiomediastinal silhouette is otherwise unremarkable. The lungs are clear. Visualized osseous structures and soft tissues are unremarkable. IMPRESSION: No focal infiltrate or effusion. If clinical suspicion persists, cross-sectional imaging (noncontrast enhanced CT examination of the c hest) is suggested for further evaluation. Reviewed, dictated and finalized at location A. IMPRESSION: No focal infiltrate or effusion. If clinical suspicion persists, cross-sectional imaging (noncontrast enhanced C T examination of the chest) is suggested for further evaluation.
[2024-06-28 10:35] VITALS: BP 149/77; PULSE 80; RESP 16; TEMP 36.5; O2SAT 96
[2024-06-28 11:32] LABS: Influenza A QL RT-PCR Negative (Negative); Influenza B QL RT-PCR Negative (Negative); RSV RNA, RT-PCR Negative (Negative); SARS-CoV-2 RNA PCR Negative (Negative)
--- NOTE | 2024-06-28 11:35 | ED.URI ---
HPI - URI/Sore Throat General Chief Complaint: Upper Respiratory Infection Stated Complaint: URI Time Seen by Provider: 06/28/24 11:31 Source: patient Mode of arrival: ambulatory Limitations: no limitations History of Present Illness HPI Narrative: patient is a 73-year-old female who presents the ED with report of URI symptoms. Related Data Home Medications Medication Instructions Recorded Confirmed aspirin 81 mg tablet,delayed 81 mg PO DAILY 07/16/22 06/20/24 release ubidecarenone-omega 3-vit E 25 1 cap PO DAILY 07/16/22 06/20/24 mg-150 (90-60) mg-200 unit capsule (Co O-54-Tqlmxql E-Fish Oil) celecoxib 100 mg capsule 100 mg PO BID 05/27/24 06/20/24 cyclobenzaprine 10 mg tablet 10 mg PO TID 05/27/24 06/20/24 famotidine 40 mg tablet 40 mg PO HS 05/27/24 06/20/24 multivitamin (Daily Multi-Vitamin 1 tablet PO DAILY 05/27/24 06/20/24 tablet) naproxen 500 mg tablet 500 mg PO BID 05/27/24 06/20/24 Allergies Allergy/AdvReac Type Severity Reaction Status Date / Time No Known Allergies Allergy Verified 06/20/24 10:52 [facility] Past Medical History Medical History Anxiety Cataract Colonic polyp Encounter for immunization Hemorrhoids, internal Insomnia Irritable bowel syndrome with constipation Mixed hyperlipidemia Surgical History Surgical History H/O elbow surgery H/O shoulder surgery History of esophagogastroduodenoscopy esophageal erosion History of partial hysterectomy Hx of breast implants, bilateral Hx of cholecystectomy Family History Family History Unknown Metastatic cancer Diabetes mellitus Heart failure Mother Family history of diabetes mellitus in first degree relative Sibling Breast cancer Sibling COPD (chronic obstructive pulmonary disease) Heart failure Other Family history of cardiovascular disease Hypertension Social History Social History Smoking packs per day: 1 Smoking cigarettes per day: 20.0 Years smoked: 25 Smoking pack-years: 25.00 Smoking status: Former smoker Tobacco type: cigarettes Second hand tobacco smoke exposure: No Smoking end date: 09/21/02 Additional smoking assessment comments: She quit 20 years ago. Alcohol intake: current Drinks per week: 1 Alcohol use details: occasionally Substance use: never Substance use type: does not use Lack of Transportation: No Lack of Food: Never True Current Housing: I Have Housing Concerned About Future Housing: No Difficulty Paying Gas/Electric Bills: No Difficulty Paying for Meds: No Currently Unemployed: No Education: High School Diploma/GED Difficulty w/ Childcare or Family Care: No Living arrangements: with family Occupation/Education: retired Gender identity (if verbalized by the patient): Female Sexual Orientation (if Verbalized by the Patient): Straight or Heterosexual Spiritual care concerns: No Agree to blood products: Yes Course Vital Signs Vital signs: Vital Signs Temperature 97.7 F 06/28/24 10:35 Pulse Rate 80 06/28/24 10:35 Respiratory Rate 16 06/28/24 10:35 Blood Pressure 149/77 H 06/28/24 10:35 Pulse Oximetry 96 06/28/24 10:35 Oxygen Delivery Room Air 06/28/24 10:35 Temperature 97.7 F 06/28/24 10:35 Pulse Rate 80 06/28/24 10:35 Respiratory Rate 16 06/28/24 10:35 Blood Pressure 149/77 H 06/28/24 10:35 Pulse Oximetry 96 06/28/24 10:35 Oxygen Delivery Room Air 06/28/24 10:35 MDM - URI/Sore Throat Lab Data Labs: Lab Results 06/28/24 Range/Units 10:38 Influenza A (RT-PCR) Negative (Negative) Influenza B (RT-PCR) Negative (Negative) RSV (RT-PCR) Negative (Negative) SARS-CoV-2 RNA (RT-PCR)
--- NOTE | 2024-06-28 11:35 | PC.NURSE ---
Patient to xray
--- NOTE | 2024-06-28 12:12 | ED.URI ---
HPI - URI/Sore Throat General Chief Complaint: Upper Respiratory Infection Stated Complaint: URI Time Seen by Provider: 06/28/24 11:31 History of Present Illness HPI Narrative: Pt presents with a productive cough and congestion. Pt haed episode of hemoptysis a couple of days ago but none since. Pt has occasional SOB. Pt denies fever but has some chills. Pt denies CP. Pt seen here last week and diagnosed with URI. Related Data Home Medications Medication Instructions Recorded Confirmed aspirin 81 mg tablet,delayed 81 mg PO DAILY 07/16/22 06/20/24 release ubidecarenone-omega 3-vit E 25 1 cap PO DAILY 07/16/22 06/20/24 mg-150 (90-60) mg-200 unit capsule (Co D-85-Anaisds E-Fish Oil) celecoxib 100 mg capsule 100 mg PO BID 05/27/24 06/20/24 cyclobenzaprine 10 mg tablet 10 mg PO TID 05/27/24 06/20/24 famotidine 40 mg tablet 40 mg PO HS 05/27/24 06/20/24 multivitamin (Daily Multi-Vitamin 1 tablet PO DAILY 05/27/24 06/20/24 tablet) naproxen 500 mg tablet 500 mg PO BID 05/27/24 06/20/24 Allergies Allergy/AdvReac Type Severity Reaction Status Date / Time No Known Allergies Allergy Verified 06/20/24 10:52 Review of Systems Review of Systems: All systems reviewed & are unremarkable except as noted in HPI and below PMFSH Past Medical History Medical History Anxiety Cataract Colonic polyp Encounter for immunization Hemorrhoids, internal Insomnia Irritable bowel syndrome with constipation Mixed hyperlipidemia Surgical History Surgical History H/O elbow surgery H/O shoulder surgery History of esophagogastroduodenoscopy esophageal erosion History of partial hysterectomy Hx of breast implants, bilateral Hx of cholecystectomy Family History Family History Unknown Metastatic cancer Diabetes mellitus Heart failure Mother Family history of diabetes mellitus in first degree relative Sibling Breast cancer Sibling COPD (chronic obstructive pulmonary disease) Heart failure Other Family history of cardiovascular disease Hypertension Social History Social History Smoking packs per day: 1 Smoking cigarettes per day: 20.0 Years smoked: 25 Smoking pack-years: 25.00 Smoking status: Former smoker Tobacco type: cigarettes Second hand tobacco smoke exposure: No Smoking end date: 09/21/02 Additional smoking assessment comments: She quit 20 years ago. Alcohol intake: current Drinks per week: 1 Alcohol use details: occasionally Substance use: never Substance use type: does not use Lack of Transportation: No Lack of Food: Never True Current Housing: I Have Housing Concerned About Future Housing: No Difficulty Paying Gas/Electric Bills: No Difficulty Paying for Meds: No Currently Unemployed: No Education: High School Diploma/GED Difficulty w/ Childcare or Family Care: No Living arrangements: with family Occupation/Education: retired Gender identity (if verbalized by the patient): Female Sexual Orientation (if Verbalized by the Patient): Straight or Heterosexual Spiritual care concerns: No Agree to blood products: Yes Exam Const: General: healthy appearing and no acute distress Nutritional Appearance: well nourished Orientation/consciousness: patient oriented x3 Limitations: no limitations HENMT: Head: normal to inspection Mouth: Yes Normal oral and palatal mucosa present Throat: posterior oropharynx normal Neck: Neck: normal visual inspection Chest: Chest palpation & inspection: normal inspection of the chest Resp: Effort & Inspection: normal respiratory effort Auscultation: clear to auscultation bilaterally Cardio: Rate: regular rate Rhythm: regular rhyt
[2024-06-28 12:51] VITALS: BP 149/70; PULSE 112; RESP 18; TEMP 36.6; O2SAT 97
== END 2024-06-28 12:53 | disposition home or self-care (01) ==
PROVIDERS: Physician Assistant; Emergency Provider Emergency Medicine; PCP Family Medicine
DX: J40 Bronchitis, not specified as acute or chronic (principal); Z20.822 Contact with and (suspected) exposure to COVID-19; F41.9 Anxiety disorder, unspecified; E78.5 Hyperlipidemia, unspecified
CPT/HCPCS: 71046; 87637; 99283

== ENCOUNTER 2024-08-09 11:24 | Outpatient (CLI) | payer MEDICARE, SELFPAY ==
--- NOTE | ~2024-08-09 | XR_ITS ---
XR chest 2V Ordering provider: Linda Pepe MD History: 73 years Female with . R05.9 - Cough, unspecified . Comparison: June 28, 2024 FINDINGS: MEDIASTINUM: The cardiac silhouette is not enlarged. Congestive juanito. LUNGS: No infiltrates, effusions or pneumothorax. Slightly prominent bronchovascular markings in the lower lobes which may indicate atelectasis. Early pneumonia is not excluded. OTHER: No free air under the diaphragm. IMPRESSION: Prominent bronchovascular markings. Atelectasis versus early pneumonia Cannot be excluded. Reviewed, dictated and finalized at location A. ULTING IT ARCHITECT IMPRESSION: Prominent bronchovascular markings. Atelectasis versus early pneumonia Cannot b e excluded.
== END 2024-08-09 11:25 | disposition home or self-care (01) ==
LOC: MICIMG 11:25
PROVIDERS: PCP Family Medicine; Visit Provider Family Medicine
DX: R05.9 Cough, unspecified (principal)
CPT/HCPCS: 71046

== ENCOUNTER 2024-11-03 14:36 | Outpatient (CLI) | payer MEDICARE, SELFPAY ==
--- NOTE | ~2024-11-03 | XR_ITS ---
CHEST RADIOGRAPH, PA AND LATERAL CLINICAL HISTORY: R05.9 - Cough, unspecified . COMPARISON: 08/09/2024 TECHNIQUE: PA and lateral views of the chest. FINDINGS Prominence of the right hilum is redemonstrated, unchanged dating back to 10/29/2022. The remainder of the lungs are clear. IMPRESSION: Stable radiographic evaluation of the chest, without focal infiltrate or effusion. If clinical suspicion persists, cross-sectional imaging (noncontrast enhanced CT examination of the c hest) is suggested for further evaluation. Reviewed, dictated and finalized at location A. ARTIST IMPRESSION: Stable radiographic evaluation of the chest, without focal infiltrate or effusi on. If clinical suspicion persists, cross-sectional imaging (noncontrast enhanced C T examination of the chest) is suggested for further evaluation.
--- OUTSIDE RECORDS SUMMARY | 2024-11-03 14:40 | XMS_ITS | Clinical Summary ---
Author Organization [facility] Address [address] [place] [address] Phone Care Team Providers Care Composition Mixer Name Role Phone Linda Pepe MD Primary Care Provider [phone] Allergies No known active allergies Medications omeprazole (PRILOSEC) 20 mg Oral CpDR Take 20 mg by mouth daily. Active multivitamin (DAILY-BARRY) Oral Tab Take 1 Tab by mouth daily. womens Active OTHER Flax seed oil Active lorazepam (ATIVAN) 0.5 mg Oral Tab Take 0.5 mg by mouth every 8 hours as needed. Active omega-3 fatty acids-fish oil 300-1,000 mg Oral Cap Take 1 Cap by mouth daily. Active promethazine HCl (PHENERGAN ORAL) Take 10 mg by mouth. Active aspirin (ECOTRIN EC) 81 mg Tablet, Delayed Release (E.C.) Take 81 mg by mouth daily. 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 Stricture esophagus 08/19/2012 Dysphagia 07/13/2009 Immunizations Immunization Administration Dates Next Due Influenza Seasonal Unspecified Formulation IM Social History Tobacco Use Types Packs/Day Years Used Date Smoking Tobacco: Former Cigarettes Q uit: 06/22/2008 Smokeless Tobacco: Never Alcohol Use Standard Drinks/Week Comments Yes 0 (1 standard drink = 0.6 oz pur e alcohol) occ Comments Unknown Sex and Gender Information Value Date Recorded Sex Assigned at Not on file Legal Sex Female 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 Gender Identity Not on file Sexual Orientation Not on file Occupation Industry Job Start Date Job End Date Not on file Not on file Not on file Not on file Last Filed Vital Signs Vital Sign Reading Time Taken Comments Blood Pressure 108/89 03/23/2018 8:45 AM CDT Pulse 74 03/23/2018 8:45 AM CDT Temperature 36.2 C (97.2 F) 03/23/2018 8:29 AM CDT Respiratory Rate 18 03/23/2018 8:45 AM CDT Oxygen Saturation 98% 03/23/2018 8:45 AM CDT Inhaled Oxygen Concentration - - Weight 87.5 kg (193 lb) 03/23/2018 7:45 AM CDT Height 167.6 cm (5' 6 ) 03/23/2018 7:45 AM CDT Body Mass Index 31.15 03/23/2018 7:45 AM CDT Plan of Treatment Health Maintenance Due Date Last Done Comments DTAP/TDAP/TD VACCINES (1 - Tdap) 1970 BREAST CANCER SCREENING 1991 COLORECTAL SCREENING 1996 Colorectal Cancer Screening 1996 FIT-DNA Q 3 years 1996 FIT/FOBT Q 1 year 1996 Flex Sig/CT Colonography Q 5 years 1996 PNEUMOCOCCAL VACCINE 65+ YEARS (1 of 1 - PCV) 08/18/20 ZOSTER VACCINE (1 of 2) 2001 OSTEOPOROSIS SCREENING 2016 INFLUENZA VACCINE (#1) 2024 06/08/2009 RSV VACCINE (60+ or ) (1 - 1-dose 75+ series) 2026 Insurance MEDICARE [facility]ILROAD [facility] Member Subscriber Plan / Payer (Ef fective 2021-Present) Name:Sheree Cheng Relation to Subscriber:Spouse Name:Brice Cheng Date of :1968 (Home) (Work) Address: [address] [place] [id number] Payer ID:Not on file Group ID:[id number] Type:Practitioner Only Address: [address] [place] [address] Advance Directives For more information, please contact: [phone] * Full Code (Latest Code Status on File) Date Activated Date Inactivated Comments 03/23/2018 7:48 AM 03/23/2018 11:03 AM * Full Code Date Activated Date Inactivated Comments 08/19/2012 10:26 AM 08/20/2012 11:09 AM * Full Code Date Activated Date Inactivated Comments 08/19/2012 9:54 AM 08/19/2012 10:26 AM * Full Code Date Activated Date Inactivated Comments 08/19/2012 6:51 AM 08/19/2012 9:54 AM * Full Code Date Activated Date Inactivated Comments 07/12/2009 9:55 AM 07/13/2009 1:01 PM Care Teams Composition Mixer Relationship Specialty Start Date End Date Linda Pepe MD [address] [place] [address] PCP - General Family Practice 03/02/18
--- OUTSIDE RECORDS SUMMARY | 2024-11-03 14:40 | XMS_ITS | Clinical Summary ---
Author Organization [facility] Address [address] [place] [address] Care Team Providers Care Environmental Services Attendant Name Role Phone Linda Pepe MD Primary Care Provider [phone] Source Comments [facility],non-owned Affiliates and Associated Physician Practices is amultiple site organization consisting of ambulatory clinics and hospital sitesin [place], [place], [place] and [place]. This disclosure is being madepursuant to the Care Everywhere program and may not contain all information available regarding this patient. Last updated 18.[facility] [employer] Social History Tobacco Use Types Packs/Day Years Used Date Smoking Tobacco: Never Assessed Sex and Gender Information Value Date Recorded Sex Assigned at Not on file Gender Identity Not on file Sexual Orientation Not on file Plan of Treatment Health Maintenance Due Date Last Done Comments BONE DENSITY TESTING 1951 COLOGUARD (AGES 45-75) - COL ON CA SCREENING 1951 COLON MONITORING 1951 COLONOSCOPY - COLON CA SCREENING 1951 CT COLONOGRAPHY - COLON CA SCREENING 1951 Colorectal Cancer Screening 1951 FIT - COLON CA SCREENING 1951 FLEX SIG - COLON CA SCREENING 1951 LIPID TESTING 1950 MAMMOGRAM 1951 HEPATITIS C SCREENING 08/13/1969 DTAP/TDAP/TD VACCINES (1 - Tdap) 1970 PNEUMOCOCCAL VACCINE 50+ (1 of 1 - PCV) 2001 ZOSTER VACCINE (1 of 2) 2001 COVID-19 VACCINE ( - 2023-2 5 season) 2024 INFLUENZA VACCINE (#1) 2024 DEPRESSION SCREENING 09/21/2024 MEDICARE AWV CALENDAR YEAR 2024 Respiratory Syncytial Virus (RSV) Vaccine Pt: or over 60 yrs (1 - 1-dose 75+ series) 2026 HEPATITIS B VACCINE Aged Out No longe r eligible based on patient's age to complete this topic HIB VACCINE Aged Out No longer eligi ble based on patient's age to complete this topic HPV VACCINE Aged Out No longer eligi ble based on patient's age to complete this topic MENINGOCOCCAL (Group B) VACCINE Aged Out No longer eligible based on patient's age to complete this topic MENINGOCOCCAL VACCINE Aged Out No aleksandar senthil eligible based on patient's age to complete this topic Care Teams Environmental Services Attendant Relationship Specialty Start Date End Date Linda Pepe MD [address] [place] [address] PCP - General 05/10/18
--- OUTSIDE RECORDS SUMMARY | 2024-11-03 14:40 | XMS_ITS | Referral Summary ---
Author Organization [facility] Address [address] [place] [address] Care Team Providers Care Rehab Physician Name Role Phone Linda Pepe MD Primary Care Provider [phone] Source Comments [facility] Affiliates and Associated Physician Practices is amultiple site organization consisting of ambulatory clinics and hospital sitesin [place], [place], [place] and [place]. This disclosure is being madepursuant to the Care Everywhere program and may not contain all information available regarding this patient. Last updated 18.[facility] Social History Tobacco Use Types Packs/Day Years Used Date Smoking Tobacco: Never Assessed Sex and Gender Information Value Date Recorded Sex Assigned at Not on file Gender Identity Not on file Sexual Orientation Not on file Plan of Treatment Not on file Care Teams Rehab Physician Relationship Specialty Start Date End Date Linda Pepe MD [address] [place] [address] PCP - General 05/10/18
--- OUTSIDE RECORDS SUMMARY | 2024-11-03 14:40 | XMS_ITS | Patient Health Summary ---
Author Organization [facility] Address [address] [place] [address] Care Team Providers Care Insurance Billing Clerk Name Role Phone Linda Pepe MD Primary Care Provider [phone] Note from [facility],non-owned Affiliates and Associated Physician Practices is amultiple site organization consisting of ambulatory clinics and hospital sitesin [place], [place], [place] and [place]. This disclosure is being madepursuant to the Care Everywhere program and may not contain all information available regarding this patient. Last updated 18.[facility] Social History Tobacco Use Types Packs/Day Years Used Date Smoking Tobacco: Never Assessed Sex and Gender Information Value Date Recorded Sex Assigned at Not on file Gender Identity Not on file Sexual Orientation Not on file Procedures * DERMATOPATHOLOGY(Performed 04/02/2021) * DERMATOPATHOLOGY(Performed 11/15/2019) Results * DERMATOPATHOLOGY (04/02/2021 12:00 AM CDT) Only the most recent of2 resultswithin the time period is included. Case Report Dermatopathology Report Case: [id number] Authorizing Provider: Denys Delcid Jr., MD Collected: 04/02/2021 12:00 AM Ordering Location: [facility] DermPath Lab Received: 04/03/2021 12:35 PM Pathologist: Zoe Cornejo MD Specimens: A) - Skin, right inferior upper back B) - Skin, left superior lateral midback C) - Skin, left lateral breast 3-4:00 region D) - Skin, right lateral breast 9-10:00 region E) - Skin, right superior flank 1:23 PM CDT DERMATOPATHOLOGY LABORATORY Final Diagnosis Specimen A. SKIN, right inferior upper back: BENIGN VERRUCOUS KERATOSIS, INFLAMED (L82.1) Specimen B. SKIN, left superior lateral midback: SEBORRHEIC KERATOSIS (L82.1) Specimen C. SKIN, left lateral breast 3-4:00 region: SEBORRHEIC KERATOSIS (L82.1) Specimen D. SKIN, right lateral breast 9-10:00 region: SEBORRHEIC KERATOSIS (L82.1) Specimen E. SKIN, right superior flank: SEBORRHEIC KERATOSIS (L82.1) 1:23 PM [facility] DERMATOPATHOLOGY LABORATORY Clinical History A-E: Inflamed seborrheic keratosis vs verruca vulgaris vs squamous cell carcinoma. . 1:23 PM [facility] DERMATOPATHOLOGY LABORATORY Gross Description Specimen A: Received is one formalin filled container labeled with the patient's name and designated right inferior upper back. The specimen consists of a shave biopsy measuring [id number]. Jar 0. Specimen B: Received is one formalin filled container labeled with the patient's name and designated left superior lateral midback. The specimen consists of a shave biopsy measuring [id number]. Jar 0. Specimen C: Received is one formalin filled container labeled with the patient's name and designated left lateral breast 3-4:00 region. The specimen consists of a shave biopsy measuring [id number]. Jar 0. Specimen D: Received is one formalin filled container labeled with the patient's name and designated right lateral breast 9-10:00 region. The specimen consists of a shave biopsy measuring [id number]. Jar 0. Specimen E: Received is one formalin filled container labeled with the patient's name and designated right superior flank. The specimen consists of a shave biopsy measuring [id number]. Jar 0. 1:23 PM [facility] DERMATOPATHOLOGY LABORATORY Microscopic Description Specimen A. SKIN, right inferior upper back: Sections show hyperkeratosis, papillomatosis, hypergranulosis, and acanthosis. Inflammatory cells are present within the dermis. These histological findings can be seen in a verruca vulgaris or a seborrheic keratosis. Specimen B. SKIN, left superior lateral midback: Sections show an acanthotic lesion composed of relatively uniform keratinocytes. There is hyperkeratosis and pseudo horn cysts formation. Specimen C. SKIN, left lateral breast 3-4:00 region: Sections show an acanthotic lesion composed of relatively uniform keratinocytes. There is hyperkeratosis and pseudo horn cysts formation. Specimen D. SKIN, right lateral breast 9-10:00 region: Sections show an acanthotic lesion composed of relatively uniform keratinocytes. There is hyperkeratosis and pseudo horn cysts formation. Specimen E. SKIN, right superior flank: Sections show an acanthotic lesion composed of relatively uniform keratinocytes. There is hyperkeratosis and pseudo horn cysts formation. 1 1:23 PM CDT DERMATOPATHOLOGY LABORATORY Disclaimer An external and internal positive and negative controls are appropriate for the histochemical, immunohistochemical and immunofluorescence stain(s) in this case (if any), except where stated explicitly. The performance characteristics of the stain(s) cited in this report were developed and its performance characteristic determined by the Dermatopathology Laboratory at [facility], directed by Dr. Nima Maria. These tests need not be, and therefore are not, approved by the [place] Food and Drug Administration. The tests are used for clinical purposes. Billing Codes Specimen Charges Stain Charges 03100 [id number] [id number] 1 1 1 1 1 1 1:23 PM CDT DERMATOPATHOLOGY LABORATORY Embedded Images 1 1:23 PM CDT DERMATOPATHOLOGY LABORATORY Pathology/Cytology TISSUE SPECIMEN FROM SKIN / Unknown 04/02/2021 04/03/2021 12:35 PM CDT Miscellaneous samples (specimen) TISSUE SPECIMEN FROM SKIN / Unknown 04/02/2021 04/03/2021 12:35 PM CDT Miscellaneous samples (specimen) TISSUE SPECIMEN FROM SKIN / Unknown 04/02/2021 04/03/2021 12:35 PM CDT Miscellaneous samples (specimen) TISSUE SPECIMEN FROM SKIN / Unknown 04/02/2021 04/03/2021 12:35 PM CDT Miscellaneous samples (specimen) TISSUE SPECIMEN FROM SKIN / Unknown 04/02/2021 04/03/2021 12:35 PM CDT Denys Delcid Jr., MD LAB - PATHOLOGY /CYTOLOGY ORDERABLES DERMATOPATHOLOGY LABORATORY [facility] - Department of Dermatology [address] [phone] Care Teams Insurance Billing Clerk Relationship Specialty Start Date End Date Linda Pepe MD [address] [place] [address] PCP - General 05/10/18
--- OUTSIDE RECORDS SUMMARY | 2024-11-03 14:40 | XMS_ITS | Continuity of Care Document ---
Author Organization [facility] Address [address] [place] [address] Phone Care Team Providers Care Drug Abuse Program Coordinator Name Role Phone Piper OD, Hitesh Unavailable Unavailable Advance Directives Directive Yes / No Effective Date File Name No Information Encounters Encounter Description Practice Location Reason(s) For Visit Diagnoses Date Provider Providers Copied on Encounter [facility], [id number] [place] [address] [address], [place], [place], [id number], [place] tel:[phone] [facility] [place] No Information 5-200 1 Piper OD Hitesh. [address] , [address], [place], [address], [place]. tel:[phone] Family History Family Member Type Diagnosis Age At Onset No Information Payers Payer name Insurance type Covered alliance party ID Authoriza tion(s) No Information Social History Type Description Quantity Date Captured Comments Sex Female Smoking Status No Information Chief Complaint And Reason For Visit No Information Reason For Referral Reason For Referral No Information History Of Present Illness Encounter Date Complaint History Of Prese nt Illness No Information Functional Status Date Functional Assessmen t No Information Instructions Date Instruction Additional Infor mation No Information Assessments Type Assessment Date No Information Patient Care Teams Name Effective Dates (start - stop) Status Members No Information
--- OUTSIDE RECORDS SUMMARY | 2024-11-03 14:40 | XMS_ITS | Referral Summary ---
Author Organization [place] [id number] Address [address] [place] [address] Care Team Providers Care Pelt Salter Name Role Phone Linda Pepe MD Primary Care Provider [phone] Jensen Bajwa MD Unavailable [phone] Allergies Active Allergy Reactions Criticality Noted Date Comments Latex Rash Medium 12/31/2021 Meloxicam Other (See comments) High 07/10/2023 Canker sores in mouth Diclofenac Other (See comments) Low 05/04/2024 Oral sores in mouth Medications LORazepam (ATIVAN) 1 mg tablet Takes only for premedication prior to mri etc. Active multivitamin capsule Take 1 capsule by mouth daily Active docosahexanoic acid/epa (FISH OIL ORAL) Take 1 capsule by mouth daily Active omeprazole (PriLOSEC) 40 mg capsule Take 1 capsule (40 mg total) by mouth daily 1 Active ergocalciferol (VITAMIN D) 50,000 unit capsule Take 1 capsule (50,000 Units total) by mouth once a week 1 Active aspirin 81 mg enteric coated tablet Take 1 tablet (81 mg total) by mouth daily Active fluticasone propionate (FLONASE) 50 mcg/actuation nasal spray Administer 1 spray into each nostril daily Active famotidine (PEPCID) 40 mg tabletIndicati ons:Laryngeal spasm Take 1 tablet (40 mg total) by mouth nightly 90 tablet [address] (VOLTAREN) 50 mg EC tablet TAKE 1 TABLET BY MOUTH THREE TIMES A DAY 90 tablet 3 3 Active traZODone (DESYREL) 150 mg tablet 150 MG ORALLY EVERY DAY AT BEDTIME NEEDED FOR INSOMNIA 4 Active cyclobenzaprin e (FLEXERIL) 10 mg tabletIndicati ons:Right hip pain Take 1 tablet (10 mg total) by mouth 2 (two) times a day as needed for muscle spasms 20 tablet 4 Active celecoxib (CeleBREX) 100 mg capsuleIndicat ions:Chronic pain of both shoulders TAKE 1 CAPSULE BY MOUTH TWICE A DAY 48 capsule 3 4 Active Active Problems Problem Noted Date Diagnosed Date Laryngeal spasm 01/07/2023 Assessment & Plan (01/07/2023 2:25 PM CDT): Pepcid 40 mg at bedtime Continue omeprazole in the Morning Will obtain EGD report Continue Darlin Laryngopharyngeal reflux discussed and Handout provided Loose body in right elbow 12/23/2021 Overview (12/23/2021): Added automatically from request for surgery [id number] Right elbow pain 01/24/2021 Lateral epicondylitis 12/19/2020 Left elbow pain 09/16/2019 Aftercare following surgery of the musculoskelet al system 07/13/2019 Chronic left shoulder pain 01/20/2019 History of bilateral breast implants 08/21/2017 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 Stricture esophagus 08/19/2012 Dysphagia 07/13/2009 Assessment & Plan (01/07/2023 10:27 PM CDT): Pepcid 40 mg at bedtime Continue omeprazole in the Morning Will obtain EGD report Immunizations Name Administration Dates Next Due Influenza, Trivalent, Adjuvanted, Intramuscular 07/20/2017 Influenza, Trivalent, High D ose, Split, Preservative Free, Intramuscular 08/12/2019,06/30/2018 Influenza, Trivalent, IM (MDV) 06/08/2009 Influenza, Trivalent, Preservative Free, Intramu scular 08/08/2016 Social History Tobacco Use Types Packs/Day Years Used Date Smoking Tobacco: Former Cigarettes 0.3 30 1 975 - 2005 Smokeless Tobacco: Never Tobacco Cessation:Counseling Given: Not Answered Alcohol Use Standard Drinks/Week Comments Defer 0 (1 standard drink = 0.6 oz pur e alcohol) AUDIT-C Answer Date Recorded Q1: How often do you have a drink containing alc ohol? 2-3 times a week 12/31/2021 Q2: How many drinks containi ng alcohol do you have on a typical day when you are drinking? 1 or 2 12/31/2021 Q3: How often do you have si x or more drinks on one occasion? Never 12/31/2021 Personal Safety Answer Date Recorded Have you ever been in or are you currently in a harmful physical or emotional relationship or is someone making you feel afraid or unsafe? Denies 01/21/2023 Comments No Sex and Gender Information Value Date Recorded Sex Assigned at Not on file Legal Sex Female 2:14 AM BUSINESS BANKER Gender Identity Not on file Sexual Orientation Not on file Last Filed Vital Signs Vital Sign Reading Time Taken Comments Blood Pressure 158/88 01/21/2023 9:53 AM CDT Pulse 88 01/21/2023 9:53 AM CDT Temperature 36.8 C (98.2 F) 01/21/2023 9:53 AM CDT Respiratory Rate 18 01/21/2023 9:53 AM CDT Oxygen Saturation 96% 01/21/2023 9:53 AM CDT Inhaled Oxygen Concentration - - Weight 97.5 kg (215 lb) 06/02/2024 2:50 PM CDT Height 165.1 cm (5' 5 ) 06/02/2024 2:50 PM CDT Body Mass Index 35.78 06/02/2024 2:50 PM CDT Plan of Treatment Not on file Medical Devices Implanted Type Area Sole Layer Device Identifier Shelf Expiration Date Model / Serial / Lot Breast Breast Bilateral: Chest Procedures Procedure Name Priority Date/Time Associated Diagnosis Comments SCREENING MAMMOGRAM BILATERAL W POLLO W IMPLANTS Schedule Routine, Read Routine (OP Routine) 10/06/2018 11:33 AM BUSINESS BANKER Encounter for screening mammogram for malignant neoplasm of breast from Last 3 Months or Most Recently Relevant to Health Maintenance Results * Screening Mammogram Bilateral w Pollo w Implants (10/06/2018 11:33 AM BUSINESS BANKER) Anatomical Region Laterality Modality Breast Bilateral Digital Radiogra phy Narrative 10/08/2018 8:50 AM BUSINESS BANKER Mammogram Technique: Bilateral Digital Breast Tomosynthesis, Bilateral C-view 2D Screening mammogram. Views obtained: bilateral craniocaudal; bilateral craniocaudal implant displaced; bilateral mediolateral oblique; and bilateral mediolateral oblique implant displaced. Computer Aided Detection was performed. Mammogram Findings: The present examination has been compared to a prior imaging study performed at [facility] on 08/24/2017. There are scattered areas of fibroglandular density. There is no suspicious abnormality in either breast. Impression: Annual screening mammography is recommended. OVERALL FINAL ASSESSMENT: BI-RADS CATEGORY 1: Negative. Procedure Note Meliza Hughes MD - 10/08/2018 Mammogram Technique: Bilateral Digital Breast Tomosynthesis, Bilateral C-view 2D Screening mammogram. Views obtained: bilateral craniocaudal; bilateralcraniocaudal implant displaced; bilateral mediolateral oblique; and bilateral mediolateral oblique implant displaced. Computer Aided Detection was performed. Mammogram Findings: The present examination has been compared to a prior imaging study performed at [facility] on 08/24/2017. There are scattered areas of fibroglandular density. There is no suspicious abnormality in either breast. Impression: Annual screening mammography is recommended. OVERALL FINAL ASSESSMENT: BI-RADS CATEGORY 1: Negative. Linda Pepe MD IMG MAMMO PROCEDURES Final Resu lt from Last 3 Months or Most Recently Relevant to Health Maintenance Insurance [facility] Address: [address] [place] [address] [facility] H[facility]/PPO Address: [address] [address] [place] [address] MEDICARE RAILROAD [employer] [facility] Address: [address] [address] [place] [address] Advance Directives For more information, please contact: [phone] * Full Code (Latest Code Status on File) Date Activated Date Inactivated Comments 01/21/2023 7:52 AM 01/21/2023 2:28 PM * Full Code Date Activated Date Inactivated Comments 01/21/2023 7:52 AM 01/21/2023 7:52 AM Care Teams Pelt Salter Relationship Specialty Start Date End Date Linda Pepe MD PCP - General Family Medicine 04/13/19 Jensen Bajwa MD [address] [address] Consulting Physician Orthopedic Surgery 12/31/21
--- OUTSIDE RECORDS SUMMARY | 2024-11-03 14:40 | XMS_ITS | Clinical Summary ---
Author Organization [place] [id number] [facility] Address [address] [place] [address] Care Team Providers Care Termite Exterminator Name Role Phone Linda Pepe MD Primary Care Provider [phone] Jensen Bajwa MD Unavailable [phone] Allergies Active Allergy Reactions Criticality Noted Date [...] (12/23/2021): Added automatically from request for surgery [id number] Right elbow pain 01/24/2021 Lateral epicondylitis 12/19/2020 [...] Influenza, Trivalent, Preservative Free, Intramu scular 08/08/2016 Surgical History Surgery Date Site/Laterality Comments SHOULDER ARTHROSCOPY 09/21/2019 - 09/20/2020 Left CHOLECYSTECTOMY HYSTERECTOMY 09/21/1982 - 09/20/1983 VAGINAL DELIVERY x4 TUBAL LIGATION COLONOSCOPY 09/21/2018 - 09/20/2019 NECK MASS EXCISION 09/21/2011 - 09/20/2012 lesions removed from inside throat x2. st. juliana grover. concerned with positioning after surgery for drainage in throat. ELBOW SURGERY 12/31/2021 Right loose body removal Medical History Medical History Date Comments Miscarriage x1 GERD (gastroesophageal reflux disease) Family History Medical History Relation Name Comments Liver cancer Sister Family history of liver cancer - (Added by TW Conv) Relation Name Status Comments Sister Social History Tobacco Use Types Packs/Day Years [...] on file Legal Sex Female 2:14 AM CARDIAC NURSE PRACTITIONER Gender Identity Not on file Sexual Orientation Not on file Obstetrics History Last Filed Vital Signs Vital Sign Reading [...] 06/02/2024 2:50 PM CDT Plan of Treatment Health Maintenance Due Date Last Done Comments Colon Cancer Screening-Colonoscopy 1950 Depression Screening 1950 Fall Risk Assessment 1950 Hepatitis C Screening 1950 Osteoporosis Screening-Bone Density Scan 1950 DTaP/Tdap/Td Vaccine (1 - Tdap) 1962 Hepatitis B Screening 1969 Pneumococcal vaccine 65+ (1 of 1 - PCV) 2016 Well Visit 65+ 2016 Breast Cancer Screening-Mammogram 10/06/2019 019, 08/24/2017 Zoster Vaccine (2 of 2) 06/02/2022 04/07/2022 Influenza Vaccine (#1) 2024 9, 06/30/2018, 07/20/2017, Additional history exists Medical Devices Implanted Type Area Flight Crew Time Clerk Device Identifier Shelf Expiration Date Model / Serial / Lot Breast Breast Bilateral: Chest Procedures Procedure Name Priority Date/Time Associated Diagnosis Comments SCREENING MAMMOGRAM BILATERAL W POLLO W IMPLANTS Schedule Routine, Read Routine (OP Routine) 10/06/2018 11:33 AM CARDIAC NURSE PRACTITIONER Encounter for screening mammogram for malignant neoplasm of breast from Last 3 Months or Most Recently Relevant to Health Maintenance Results * Screening Mammogram Bilateral w Pollo w Implants (10/06/2018 11:33 AM CARDIAC NURSE PRACTITIONER) Anatomical Region Laterality Modality Breast Bilateral Digital Radiogra phy Narrative 10/08/2018 8:50 AM CARDIAC NURSE PRACTITIONER Mammogram Technique: Bilateral Digital Breast Tomosynthesis, Bilateral C-view 2D Screening mammogram. Views obtained: bilateral craniocaudal; bilateral craniocaudal implant displaced; bilateral mediolateral oblique; and bilateral mediolateral oblique implant displaced. Computer Aided Detection was performed. Mammogram Findings: The present examination has been compared to a prior imaging study performed at [facility] on 08/24/2017. There are scattered areas of [...] to a prior imaging study performed at [facility] on 08/24/2017. There are scattered areas of fibroglandular density. There is no suspicious abnormality in either breast. Impression: Annual screening mammography is recommended. OVERALL FINAL ASSESSMENT: BI-RADS CATEGORY 1: Negative. Linda Pepe MD IMG MAMMO PROCEDURES Final Resu lt from Last 3 Months or Most Recently Relevant to Health Maintenance Insurance MEDICARE SOLUTIONS [facility] MEDICARE RAILROAD MEDICARE [employer] Advance Directives For more information, please contact: [phone] * Full Code (Latest Code Status on File) Date Activated Date Inactivated Comments 01/21/2023 7:52 AM 01/21/2023 2:28 PM * Full Code Date Activated Date Inactivated Comments 01/21/2023 7:52 AM 01/21/2023 7:52 AM Care Teams Termite Exterminator Relationship Specialty Start Date End Date Linda Pepe MD PCP - General Family Medicine 04/13/19 Jensen Bajwa MD [address] [place] [address] Consulting Physician Orthopedic Surgery 12/31/21
--- OUTSIDE RECORDS SUMMARY | 2024-11-03 14:41 | XMS_ITS | Encounter Summary ---
Author Organization [facility] Address [address] [facility] [place] [address] Care Team Providers Care Utility Repairer Name Role Phone Linda Pepe MD Primary Care Provider Encounter Details Date Type Department Care Team (Late st Contact Info) Description 11/15/2019 Lab Requisition [facility] [address] [place] [address] [place] [address] [place] [address] Social History Tobacco Use Types Packs/Day Years Used Date Smoking Tobacco: Never Assessed Sex and Gender Information Value Date Recorded Sex Assigned at Not on file Gender Identity Not on file Sexual Orientation Not on file documented as of this encounter Plan of Treatment Not on file documented as of this encounter Procedures Procedure Name Priority Date/Time Associated Diagnosis Comments DERMATOPATHOLOGY Routine 11/15/2019 12:0 0 AM INDUSTRIAL TECHNICIAN documented in this encounter Results * DERMATOPATHOLOGY (11/15/2019 12:00 AM INDUSTRIAL TECHNICIAN) Case Report Dermatopathology Report Case: [id number] Authorizing Provider: Zunilda Trevino MD Collected: 11/15/2019 12:00 AM Ordering Location: [facility] Received: 11/15/2019 12:14 PM Pathologist: Melani Brown MD Specimens: A) - Skin, left suprapubic skin B) - Skin, left anterior lateral distal thigh C) - Skin, left rib cage 0 3:05 PM INDUSTRIAL TECHNICIAN DERMATOPATHOLOGY LABORATORY Final Diagnosis Specimen A. SKIN, left suprapubic skin: SEBORRHEIC KERATOSIS, MACULAR (L82.1) Specimen B. 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 SKIN, left rib cage: BENIGN VERRUCOUS KERATOSIS, INFLAMED (L82.1) 0 3:05 PM [facility] DERMATOPATHOLOGY LABORATORY Clinical History A: Flat seborrheic keratosis vs R/O melanoma. B: Inflamed seborrheic keratosis vs squamous cell carcinoma vs actinic keratosis. C: Inflamed seborrheic keratosis. . 0 3:05 PM [facility] DERMATOPATHOLOGY LABORATORY Gross Description Specimen A: Received is one formalin filled container labeled with the patient's name and designated left suprapubic skin. The specimen consists of a shave biopsy measuring 13a13x4ok. Jar 0. Specimen B: Received is one formalin filled container labeled with the patient's name and designated left anterior lateral distal thigh. The specimen consists of a shave biopsy measuring 0j9q3vh. Jar 0. Specimen C: Received is one formalin filled container labeled with the patient's name and designated left rib cage. The specimen consists of a shave biopsy measuring 7l7x4fy. Jar 0. 0 3:05 PM [facility] DERMATOPATHOLOGY LABORATORY Microscopic Description Specimen A. SKIN, left suprapubic skin: Sections show a relatively broad, flat proliferation of small keratinocytes. The surface is gently papillated, and there is increased basilar pigmentation. Specimen B. SKIN, left anterior lateral distal thigh: There is psoriasiform hyperplasia of the epidermis. The suprapapillary plates are thinned and the granular layer is diminished. The horny layer contains areas of compact, confluent parakeratosis with collections of neutrophils. In the papillary dermis there are dilated, tortuous loops and a superficial perivascular lymphocytic infiltrate. Grocott's methenamine silver (GMS) stain fails to highlight fungal elements in the available sections. COMMENT: If this is a solitary lesion, it is most likely a psoriasiform keratosis; however, if it is part of a more diffuse process, psoriasis should be considered. Specimen C. SKIN, left rib cage: Sections show hyperkeratosis, papillomatosis, hypergranulosis, and acanthosis. Inflammatory cells are present within the dermis. These histological findings can be seen in a verruca vulgaris or a seborrheic keratosis. 0 3:05 PM INDUSTRIAL TECHNICIAN DERMATOPATHOLOGY LABORATORY Disclaimer An external and internal positive and negative controls are appropriate for the histochemical, immunohistochemical and immunofluorescence stain(s) in this case (if any), except where stated explicitly. The performance characteristics of the stain(s) cited in this report were developed and its performance characteristic determined by the Dermatopathology Laboratory at [facility], directed by Dr. Nima Maria. These tests need not be, and therefore are not, approved by the [place] Food and Drug Administration. The tests are used for clinical purposes. Billing Codes Specimen Charges Stain Charges 17921 05505 86521 1 1 1 17867 1 0 3:05 PM INDUSTRIAL TECHNICIAN DERMATOPATHOLOGY LABORATORY Embedded Images 0 3:05 PM INDUSTRIAL TECHNICIAN DERMATOPATHOLOGY LABORATORY Pathology/Cytology TISSUE SPECIMEN FROM SKIN / Unknown 11/15/2019 11/15/2019 12:14 PM INDUSTRIAL TECHNICIAN Miscellaneous samples (specimen) TISSUE SPECIMEN FROM SKIN / Unknown 11/15/2019 11/15/2019 12:14 PM INDUSTRIAL TECHNICIAN Miscellaneous samples (specimen) TISSUE SPECIMEN FROM SKIN / Unknown 11/15/2019 11/15/2019 12:14 PM INDUSTRIAL TECHNICIAN Zunilda Trevino MD LAB - PATHOLOGY/C YTOLOGY ORDERABLES DERMATOPATHOLOGY LABORATORY [facility] - Department of Dermatology [address] [place] [address], [address]th [place] [address], [facility] [phone] documented in this encounter Visit Diagnoses Not on filedocumented in this encounter Care Teams Utility Repairer Relationship Specialty Start Date End Date Linda Pepe MD [address] [place] [address] PCP - General 05/10/18 documented as of this encounter
--- OUTSIDE RECORDS SUMMARY | 2024-11-03 14:41 | XMS_ITS | Encounter Summary ---
Author Organization [facility] Address [address] [place] [address] Care Team Providers Care Contracting Executive Name Role Phone Linda Pepe MD Primary Care Provider [phone] Encounter Details Date Type Department Care Team (Late st Contact Info) Description 01/14/2000 Outpatient Historical [facility] MRI DEPT Conversion, History Mastodynia (Primary Dx) Social History Tobacco Use Types Packs/Day Years Used Date Smoking Tobacco: Never Assessed Comments Unknown Sex and Gender Information Value Date Recorded Sex Assigned at Not on file Legal Sex Female 5:24 AM GOLF CART REPAIRER Gender Identity Not on file Sexual Orientation Not on file documented as of this encounter Plan of Treatment Not on file documented as of this encounter Visit Diagnoses Diagnosis Mastodynia- Primary documented in this encounter Care Teams Contracting Executive Relationship Specialty Start Date End Date Linda Pepe MD [address] [place] [id number] PCP - General Family Practice 03/02/18 documented as of this encounter
--- OUTSIDE RECORDS SUMMARY | 2024-11-03 14:41 | XMS_ITS | Encounter Summary ---
Author Organization [facility] Address [address] [place] [address] Care Team Providers Care Radiation / Chemistry Technician Name Role Phone Linda Pepe MD Primary Care Provider [phone] Encounter Details Date Type Department Care Team (Late st Contact Info) Description 04/03/[address] [facility] [address] [facility] [place] [address] Denys Delcid Jr., MD [address] [place] [address] Social History Tobacco Use Types Packs/Day Years Used Date Smoking Tobacco: Never Assessed Sex and Gender Information Value Date Recorded Sex Assigned at Not on file Gender Identity Not on file Sexual Orientation Not on file documented as of this encounter Plan of Treatment Not on file documented as of this encounter Procedures Procedure Name Priority Date/Time Associated Diagnosis Comments DERMATOPATHOLOGY Routine 04/02/2021 12:0 0 AM CDT documented in this encounter Results * DERMATOPATHOLOGY (04/02/2021 12:00 AM CDT) Case Report Dermatopathology Report Case: [id number] Authorizing Provider: Denys Delcid Jr., MD Collected: 04/02/2021 12:00 AM Ordering Location: [facility] Received: 04/03/2021 12:35 [...] superior flank: SEBORRHEIC KERATOSIS (L82.1) 1:23 PM [facility] DERMATOPATHOLOGY LABORATORY Clinical History A-E: Inflamed seborrheic keratosis vs verruca vulgaris vs squamous cell carcinoma. . 1:23 PM [facility] DERMATOPATHOLOGY LABORATORY Gross Description Specimen A: Received is one formalin filled container labeled with the patient's name and designated right inferior upper back. The specimen consists of a shave biopsy measuring 8p2h5jh. Jar 0. Specimen B: Received is one formalin filled container labeled with the patient's name and designated left superior lateral midback. The specimen consists of a shave biopsy measuring 6c0e6ip. Jar 0. Specimen C: Received is one formalin filled container labeled with the patient's name and designated left lateral breast 3-4:00 region. The specimen consists of a shave biopsy measuring 0q2p0fq. Jar 0. Specimen D: Received is one formalin filled container labeled with the patient's name and designated right lateral breast 9-10:00 region. The specimen consists of a shave biopsy measuring 8o1z8mg. Jar 0. Specimen E: Received is one formalin filled container labeled with the patient's name and designated right superior flank. The specimen consists of a shave biopsy measuring 1o7l8jt. Jar 0. 1:23 PM [facility] DERMATOPATHOLOGY LABORATORY Microscopic Description Specimen A. SKIN, [...] characteristic determined by the Dermatopathology Laboratory at [facility], directed by Dr. Nima Maria. These tests need not be, and therefore are not, approved by the [place] Food and Drug Administration. The tests are used for clinical purposes. Billing Codes Specimen Charges Stain Charges 16748 83250 03502 07257 93506 1 1 1 1 1 1 1:23 [...] LAB - PATHOLOGY /CYTOLOGY ORDERABLES DERMATOPATHOLOGY LABORATORY [facility] - Department of Dermatology [facility] Medicine [address] [place] [address], [address] [phone] documented in this encounter Visit Diagnoses Not on filedocumented in this encounter Care Teams Radiation / Chemistry Technician Relationship Specialty Start Date End Date Linda Pepe MD [address] [place] [address] PCP - General 05/10/18 documented as of this encounter
--- OUTSIDE RECORDS SUMMARY | 2024-11-03 14:41 | XMS_ITS | Encounter Summary ---
Author Organization [facility] Address [address] [place] [address] Care Team Providers Care Library Associate Name Role Phone Linda Pepe MD Primary Care Provider [phone] Encounter Details Date Type Department Care Team (Late st Contact Info) Description 12/19/2008 Outpatient Historical [facility] IMG-HOSP Erickson Tabor MD NO ADDRESS ON FILE Dysphagia, Unspecified Social History Tobacco Use Types Packs/Day Years Used Date Smoking Tobacco: Never Assessed Comments Unknown Sex and Gender Information Value Date Recorded Sex Assigned at Not on file Legal Sex Female 5:24 AM CLAIMS SUPPORT SPECIALIST Gender Identity Not on file Sexual Orientation Not on file documented as of this encounter Plan of Treatment Not on file documented as of this encounter Procedures Procedure Name Priority Date/Time Associated Diagnosis Comments XR ESOPHAGUS BARIUM SWALLOW Timed Study 12/19/2008 9:05 AM CDT XR VIDEO SWALLOW Timed Study 12/19/2008 8:40 AM CDT documented in this encounter Results * XR ESOPHAGUS BARIUM SWALLOW (12/19/2008 9:05 AM CDT) Anatomical Region Laterality Modality Abdomen Other 12/19/2008 9:05 AM CDT Narrative 12/19/2008 11:21 AM CDT [facility] [address] [address] [place] [address] Admit Date: 12/19/2008 NISHIBRANDON ISAI Banda Sex: F Admit Prov: ERICKSON TABOR Date: 1950 Primary Care Prov: CMRN: [id number] [id number] [facility] Ordering Prov: N/A Accession Number: [id number] Interpretation ESOPHAGUS/BARIUM SWALLOW 12/19/2008 History: Dysphasia, 787.20 Findings: Detailed evaluation of the cervical esophagus was performed during the preceding cookie swallow study. There was no evidence of aspiration or penetration or significant retention of barium in either the vallecula or piriform sinus. The examination revealed normal esophageal motility without persistent filling defects. There is no evidence of esophageal strictures. No hiatal hernia or gastroesophageal reflux was demonstrated. The esophagus is of normal caliber. Impression: Unremarkable barium swallow . Dictated by: EMELY JACKSON 12/19/2008 09:55 Electronically signed by: EMELY JACKSON 12/19/2008 11:19 Transcribed: 12/19/2008 11:07 AMK Procedure Note Emely Jackson MD - 12/19/2008 [facility] [address] [place], [place] [address] Admit Date: 12/19/2008 OSCAR DOWNING Sex: F Admit Prov: ERICKSON TABOR Date:1950 Primary Care Prov: CMRN: [id number] [facility] [address] [place] [address] IMAGING SERVICES Ordering Prov: N/A Interpretation ESOPHAGUS/BARIUM SWALLOW 12/19/2008 History: Dysphasia, 787.20 Findings: Detailed evaluation of the cervical esophagus wasperformed during the preceding cookie swallow study. There was no evidence of aspiration or penetration or significant retention of barium ineither the vallecula or piriform sinus. The examination revealed normalesophageal motility without persistent filling defects. There is no evidenceof esophageal strictures. No hiatal hernia or gastroesophageal refluxwas demonstrated. The esophagus is of normal caliber. Impression: Unremarkable barium swallow . Dictated by: EMELY JACKSON 12/19/2008 09:55 Electronically signed by: EMELY JACKSON 12/19/2008 11:19 Transcribed: 12/19/2008 11:07 AMK Erickson Tabor MD DIAGNOSTIC IMAGING ORDERABLES Final Result * XR VIDEO SWALLOW (12/19/2008 8:40 AM CDT) Anatomical Region Laterality Modality Chest Other 12/19/2008 8:40 AM CDT Narrative 12/19/2008 10:53 AM CDT [facility] [address] [address] [place], [place] [address] Admit Date: 12/19/2008 ISAI DOWNING Sex: F Admit Prov: ERICKSON TABOR Date: 1950 Primary Care Prov: CMRN: [id number] [id number] IM[facility]ING SERVICES Ordering Prov: N/A Accession Number: [id number] Interpretation SWALLOWING FUNCTION/COOKIE SWALLOW, 12/19/2008 History: Dysphagia. Findings: Fluoroscopy was provided for the speech pathologist to perform a cookie swallow study. Various barium coated foods, as well as thin and thick barium, were orally consumed and the study was taped for careful review and full report by the speech pathologist. The patient did not demonstrate any episodes of aspiration or penetration during the exam. There is no significant retention of barium in either the vallecula or piriform sinuses. . Dictated by: EMELY JACKSON 12/19/2008 09:52 Electronically signed by: EMELY JACKSON 12/19/2008 10:51 Transcribed: 12/19/2008 09:55 [facility] Procedure Note Emely Jackson MD - 12/19/2008 [facility] [place] [address] [place], [place] [address] Admit Date: 12/19/2008 OSCAR DOWNING Sex: F Admit Prov: ERICKSON TABOR Date:1950 Primary Care Prov: CMRN: [id number] [facility] [id number] IM[facility]ING SERVICES Ordering Prov: N/A Interpretation SWALLOWING FUNCTION/COOKIE SWALLOW, 12/19/2008 History: Dysphagia. Findings: Fluoroscopy was provided for the speech pathologist toperform a cookie swallow study. Various barium coated foods, as well as thinand thick barium, were orally consumed and the study was taped forcareful review and full report by the speech pathologist. The patient didnot demonstrate any episodes of aspiration or penetration during theexam. There is no significant retention of barium in either the valleculaor piriform sinuses. . Dictated by: EMELY JACKSON 12/19/2008 09:52 Electronically signed by: EMELY JACKSON 12/19/2008 10:51 Transcribed: 12/19/2008 09:55 M Erickson Tabor MD DIAGNOSTIC IMAGING ORDERABLES Final Result documented in this encounter Visit Diagnoses Diagnosis Dysphagia, unspecified(787.20) Dysphagia, unspecified documented in this encounter Care Teams Library Associate Relationship Specialty Start Date End Date iLnda Pepe MD [address] [place] [address] PCP - General Family Practice 03/02/18 documented as of this encounter
--- OUTSIDE RECORDS SUMMARY | 2024-11-03 14:41 | XMS_ITS | Clinical Summary ---
Author Organization [facility] Address On license of [facility] [place] [address] Care Team Providers Care Ammonia Box Tender Name Role Phone Linda Pepe MD Primary Care Provider [phone] Allergies No known active allergies Medications aspirin 325 MG tablet 06/28/2019 Active Active Problems No known active problems Family History Medical History Relation Comments Asthma Father Cancer Father Diabetes Mother Relation Status Comments Father Mother Social History Tobacco Use Types Packs/Day Years Used Date Smoking Tobacco: Former Cigarettes 0.5 20 Smokeless Tobacco: Never Comments Unknown Sex and Gender Information Value Date Recorded Sex Assigned at Not on file Legal Sex Female 9:41 AM PHYSICIST NUCLEAR Gender Identity Not on file Sexual Orientation Not on file Last Filed Vital Signs Vital Sign Reading Time Taken Comments Blood Pressure 128/70 10/26/2019 2:23 PM PHYSICIST NUCLEAR Pulse 83 10/26/2019 2:23 PM PHYSICIST NUCLEAR Temperature 36.7 C (98 F) 10/26/2019 2:23 PM PHYSICIST NUCLEAR Respiratory Rate 16 10/26/2019 2:23 PM PHYSICIST NUCLEAR Oxygen Saturation 99% 10/26/2019 2:23 PM PHYSICIST NUCLEAR Inhaled Oxygen Concentration - - Weight 81.6 kg (180 lb) 10/26/2019 2:23 PM PHYSICIST NUCLEAR Height 165.1 cm (5' 5 ) 10/26/2019 2:23 PM PHYSICIST NUCLEAR Body Mass Index 29.95 10/26/2019 2:23 PM PHYSICIST NUCLEAR Plan of Treatment Health Maintenance Due Date Last Done Comments Colorectal Cancer Screening Colonoscopy (10 Years) 1950 Hepatitis C 1969 DTaP, Tdap and Td Vaccines ( 1 - Tdap) 1970 Zoster Vaccines (1 of 2) 2001 Dexa Scan (General) 2016 Pneumococcal Vaccine: 65+ Years (1 of 1 - PCV) 2016 Mammogram Screening 10/06/2020 10/06/2018 COVID-19 Vaccine ( - 2023-2 5 season) 2024 Influenza Adult (#1) 2024 06/30/2018, 06/08/2009 RSV Immunization or 60+ Years (1 - 1-dose 75+ series) 2026 Meningococcal B Vaccine Aged Out No l onger eligible based on patient's age to complete this topic Meningococcal Vaccine Aged Out No aleksandar senthil eligible based on patient's age to complete this topic RSV Immunizations Under 20 Months Aged Out No longer eligible b ased on patient's age to complete this topic Procedures Procedure Name Priority Date/Time Associated Diagnosis Comments MAMMOGRAM GENERIC (SCAN ORDER) Routine 10/06/2018 from Last 3 Months or Most Recently Relevant to Health Maintenance Results * MAMMOGRAM (10/06/2018) Anatomical Region Laterality Modality Other us Documents Scanned SCANNING Edited Result - Final from Last 3 Months or Most Recently Relevant to Health Maintenance Care Teams Ammonia Box Tender Relationship Specialty Start Date End Date Linda Pepe MD PCP - General FAMILY PRACTICE 10/26/19
--- OUTSIDE RECORDS SUMMARY | 2024-11-03 14:41 | XMS_ITS | Encounter Summary ---
Author Organization [facility] Address 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 Gender Identity Not on file Sexual Orientation Not on file documented as of this encounter Plan of Treatment Not on file documented as of this encounter Procedures Procedure Name Priority Date/Time Associated Diagnosis Comments PATHOLOGY Routine 01/09/2009 2:18 PM CDT documented in this encounter Results * PATHOLOGY (01/09/2009 2:18 PM CDT) FINAL REPORT [address] [address] Patient: ISAI DOWNING : 1950 Procedure Date: 01/09/2009 Accession Date: 01/09/2009 Case No: [id number] Ordering Dr: ERICKSON TABOR Case types AW, BW, FW, NW and SH are performed by [facility], [place], [place] SURGICAL PATHOLOGY & NON-GYNECOLOGIC CYTOPATHOLOGY REPORT DIAGNOSIS OROPHARYNX, RIGHT TONGUE BASE, BIOPSY: - BENIGN LINGUAL TONSILLAR TISSUE. Specimen Description: Right tongue base biopsy. Operative Procedure: Biopsy. Patient Information/Histo ry/Diagnosis: Dysphagia. Gross: Received in one container labeled Isai Downing, right tongue base biopsy are two pieces of pink-rivas tissue measuring 0.5 cm and 0.6 cm. Both are submitted in block A1. [facility] 01.10.2009 07:09 am Microscopic: The slides are labeled [id number] and Kaelynfabian Isai. The specimen from the right tongue base consists of benign lingual tonsillar-type tissue. There is no significant surface epithelial atypia. No tumor is seen. /[facility] 01.10.2009 12:35 pm Staging Form: No. ELECTRONIC SIGNATURE FOR MIN CARRILLO M.D.- 01/10/09 04:24 pm INTERFACE SYSTEM 01/09/2009 2:18 PM CDT Erickson Tabor MD PATHOLOGY/CYTOLOGY ORDERABLES Final Result INTERFACE SYSTEM Refer to clinic/hospital department documented in this encounter Visit Diagnoses Diagnosis Dysphagia, unspecified(787.20) Dysphagia, unspecified documented in this encounter Care Teams Acquisitions Librarian Relationship Specialty Start Date End Date Linda Pepe MD [address] [place] [address] PCP - General Family Practice 03/02/18 documented as of this encounter
[2024-11-03 15:45] LABS: Strep Group A RT-PCR NOT DETECTED (Negative)
[2024-11-03 15:55] LABS: Influenza A QL RT-PCR Positive (Negative); Influenza B QL RT-PCR Negative (Negative); RSV RNA, RT-PCR Negative (Negative); SARS-CoV-2 RNA PCR Negative (Negative)
== END 2024-11-03 14:37 | disposition home or self-care (01) ==
PROVIDERS: PCP Family Medicine; Visit Provider Family Medicine
DX: J02.9 Acute pharyngitis, unspecified (principal); J06.9 Acute upper respiratory infection, unspecified; R05.9 Cough, unspecified
CPT/HCPCS: 71046; 87637; 87651

== ENCOUNTER 2024-12-20 13:32 | Outpatient (CLI) | payer MEDICARE, SELFPAY ==
--- NOTE | ~2024-12-20 | XR_ITS ---
EXAM: XR hand LT min 3V DATE: 12/20/2024 13:49 HISTORY: M18.12 - Unilateral primary osteoarthritis of first carpo... . COMPARISON: Left wrist 08/12/2004. FINDINGS: Normal mineralization. No fracture or dislocation. No lytic or blastic lesion. Scattered d egenerative changes in the hand and wrist, typical of osteoarthritis, moderate at the left second DIP joint, mild in the remaining affected joints. No erosion or periosteal change. Soft tissues within n ormal limits. IMPRESSION: Polyarticular osteoarthritis of the left hand. Reviewed, dictated and finalized at location K.
--- OUTSIDE RECORDS SUMMARY | 2024-12-20 14:42 | XMS_ITS | Clinical Summary ---
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 Gender Identity Not on file Sexual Orientation [...] Colonography Q 5 years 1996 PNEUMOCOCCAL VACCINE 50+ YEARS (1 of 1 - PCV) 08/18/20 ZOSTER VACCINE (1 of 2) 2001 OSTEOPOROSIS SCREENING 2016 INFLUENZA VACCINE (#1) 2024 06/08/2009 RSV VACCINE (60+ or ) (1 - 1-dose 75+ series) 2026 Insurance MEDICARE [facility] Member Subscriber Plan / Payer (Ef fective 2021-Present) Name:Sheree Cheng Relation to Subscriber:Spouse Name:Brice Cheng Date of :1968 (Home) (Work) Address: [address] [place] [id number] Payer ID:Not on file Group ID:[id number] Type:Practitioner Only Address: [address] [place] [address] Advance Directives For more information, please contact: [phone] * Full Code (Latest Code Status on [...] 9:55 AM 07/13/2009 1:01 PM Care Teams Diesel Stationary Engineer Relationship Specialty Start Date End Date Linda Pepe MD [address] [place] [address] PCP - General Family Practice 03/02/18
--- OUTSIDE RECORDS SUMMARY | 2024-12-20 14:43 | XMS_ITS | Encounter Summary ---
Author Organization [facility] Address [address] [place] [address] Care Team Providers Care Tile And Marble Installer Name Role Phone Linda Pepe MD Primary Care Provider Encounter Details Date Type Department Care Team (Late st Contact Info) Description 04/03/2021 Lab Requisition [facility] DermPath Lab [address], [place] [place] [address] Denys Delcid Jr., MD [address] [place] [address] Social History Tobacco Use Types Packs/Day Years [...] AM CDT) Case Report Dermatopathology Report Case: [id number] Authorizing Provider: Denys Delcid Jr., MD Collected: 04/02/2021 12:00 AM Ordering Location: [facility] DermPath Lab Received: 04/03/2021 12:35 PM [...] superior flank: SEBORRHEIC KERATOSIS (L82.1) 1:23 PM [facility] DERMATOPATHOLOGY LABORATORY Clinical History A-E: Inflamed seborrheic keratosis vs verruca vulgaris vs squamous cell carcinoma. . 1:23 PM [facility] DERMATOPATHOLOGY LABORATORY Gross Description Specimen A: Received is one formalin filled container labeled with the patient's name and designated right inferior upper back. The specimen consists of a shave biopsy measuring 9q4k4ml. Jar 0. Specimen B: Received is one formalin filled container labeled with the patient's name and designated left superior lateral midback. The specimen consists of a shave biopsy measuring 5u6n2wh. Jar 0. Specimen C: Received is one formalin filled container labeled with the patient's name and designated left lateral breast 3-4:00 region. The specimen consists of a shave biopsy measuring 9b3c8ce. Jar 0. Specimen D: Received is one formalin filled container labeled with the patient's name and designated right lateral breast 9-10:00 region. The specimen consists of a shave biopsy measuring 7n4f7st. Jar 0. Specimen E: Received is one formalin filled container labeled with the patient's name and designated right superior flank. The specimen consists of a shave biopsy measuring 6t2o9nu. Jar 0. 1:23 PM [facility] DERMATOPATHOLOGY LABORATORY Microscopic Description Specimen A. [...] characteristic determined by the Dermatopathology Laboratory at [facility], directed by Dr. Nima Maria. These tests need not be, and therefore are not, approved by the [place] Food and Drug Administration. The tests are used for clinical purposes. Billing Codes Specimen Charges Stain Charges 85423 05933 21335 63617 96915 1 1 1 1 1 1 1:23 [...] LAB - PATHOLOGY /CYTOLOGY ORDERABLES DERMATOPATHOLOGY LABORATORY [facility] - Department of Dermatology [facility] Medicine [address] [place] [address], [address] [phone] documented in this encounter Visit Diagnoses Not on filedocumented in this encounter Care Teams Tile And Marble Installer Relationship Specialty Start Date End Date Linda Pepe MD [address] [place] [address] PCP - General 05/10/18 documented as of this encounter
--- OUTSIDE RECORDS SUMMARY | 2024-12-20 14:43 | XMS_ITS | Encounter Summary ---
Author Organization [facility] Address 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 Gender Identity Not on file Sexual Orientation [...] AM CDT Narrative 12/19/2008 11:21 AM CDT [facility] [address] [place], [place] [address] Admit Date: 12/19/2008 NISHIBRANDON ISAI Banda Sex: F Admit Prov: ERICKSON TABOR Date: 1950 Primary Care Prov: CMRN: [id number] [id number] [facility] Ordering Prov: N/A Accession Number: [id number] Interpretation ESOPHAGUS/BARIUM SWALLOW 12/19/2008 History: Dysphasia, 787.20 [...] Procedure Note Emely Jackson MD - 12/19/2008 [facility] [address] [place], [place] [address] Admit Date: 12/19/2008 OSCAR DOWNING Sex: F Admit Prov: ERICKSON TABOR Date:1950 Primary Care Prov: CMRN: [id number] [facility] [address] [place] [address] IMAGING SERVICES Ordering Prov: N/A Interpretation ESOPHAGUS/BARIUM [...] AM CDT Narrative 12/19/2008 10:53 AM CDT [facility] [address] [place], [place] [address] Admit Date: 12/19/2008 ISAI DOWNING Sex: F Admit Prov: ERICKSON TABOR Date: 1950 Primary Care Prov: CMRN: [id number] [facility] [id number] IMAGING SERVICES Ordering Prov: N/A Accession Number: [id number] Interpretation SWALLOWING FUNCTION/COOKIE SWALLOW, 12/19/2008 History: Dysphagia. [...] EMELY JACKSON 12/19/2008 10:51 Transcribed: 12/19/2008 09:55 [facility] Procedure Note Emely Jackson MD - 12/19/2008 [facility] [address] [place], [place] [address] Admit Date: 12/19/2008 OSCAR DOWNING Sex: F Admit Prov: ERICKSON TABOR Date:1950 Primary Care Prov: CMRN: [id number] [facility] [id number] IMAGING SERVICES Ordering Prov: N/A Interpretation SWALLOWING [...] unspecified documented in this encounter Care Teams Janitor Head Relationship Specialty Start Date End Date Linda Pepe MD [address] [place] [address] PCP - General Family Practice 03/02/18 documented as of this encounter
--- OUTSIDE RECORDS SUMMARY | 2024-12-20 14:43 | XMS_ITS | Encounter Summary ---
Author Organization [facility] Address 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 Gender Identity Not on file Sexual Orientation Not on file documented as of this encounter Plan of Treatment Not on file documented as of this encounter Procedures Procedure Name Priority Date/Time Associated Diagnosis Comments PATHOLOGY Routine 01/09/2009 2:18 PM CDT documented in this encounter Results * PATHOLOGY (01/09/2009 2:18 PM CDT) FINAL REPORT [address] [address] Patient: ISAI DOWNING : 1950 Procedure Date: 01/09/2009 Accession Date: 01/09/2009 Case No: [id number] Ordering Dr: ERICKSON TABOR Case types AW, BW, FW, NW and SH are performed by [facility], [place], [place] SURGICAL PATHOLOGY & NON-GYNECOLOGIC CYTOPATHOLOGY REPORT DIAGNOSIS OROPHARYNX, RIGHT TONGUE BASE, BIOPSY: - BENIGN LINGUAL TONSILLAR TISSUE. Specimen Description: Right tongue base biopsy. Operative Procedure: Biopsy. Patient Information/Histo ry/Diagnosis: Dysphagia. Gross: Received in one container labeled Isai Downing, right tongue base biopsy are two pieces of pink-rivas tissue measuring 0.5 cm and 0.6 cm. Both are submitted in block A1. [facility] 01.10.2009 07:09 am Microscopic: The slides are labeled [id number] and Kaelynfabian Isai. The specimen from the right tongue base consists of benign lingual tonsillar-type tissue. There is no significant surface epithelial atypia. No tumor is seen. /[facility] 01.10.2009 12:35 pm Staging Form: No. ELECTRONIC SIGNATURE FOR MIN CARRILLO M.D.- 01/10/09 04:24 pm INTERFACE SYSTEM 01/09/2009 2:18 PM CDT Erickson Tabor MD PATHOLOGY/CYTOLOGY ORDERABLES Final Result INTERFACE SYSTEM Refer to clinic/hospital department documented in this encounter Visit Diagnoses Diagnosis Dysphagia, unspecified(787.20) Dysphagia, unspecified documented in this encounter Care Teams Blade Worker Relationship Specialty Start Date End Date Linda Pepe MD [address] [place] [address] PCP - General Family Practice 03/02/18 documented as of this encounter
--- OUTSIDE RECORDS SUMMARY | 2024-12-20 14:43 | XMS_ITS | Continuity of Care Document ---
Author Organization [facility] Address [address] [place] [address] Phone Care Team Providers Care Manager Community Development Name Role Phone Piper OD, Hitesh Unavailable Unavailable Advance Directives Directive Yes / No Effective Date File Name No Information Encounters Encounter Description Practice Location Reason(s) For Visit Diagnoses Date Provider Providers Copied on Encounter [facility], [address] [place] [address] [address], [place], [place], [id number], [place] tel:[phone] SEC [facility] No Information 5-200 1 Piper OD Hitesh. [address] , [address], [place], [address], [place]. tel:[phone] Family History Family Member Type Diagnosis Age At Onset No Information Payers Payer name Insurance type Covered libertarian ID Authoriza tion(s) No Information Social History [...]
--- OUTSIDE RECORDS SUMMARY | 2024-12-20 14:43 | XMS_ITS | Encounter Summary ---
Author Organization [facility] Address 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
--- OUTSIDE RECORDS SUMMARY | 2024-12-20 14:43 | XMS_ITS | Clinical Summary ---
Author Organization [facility] Address [address] [place] [address] Care Team Providers Care Cementer Oil Well Name Role Phone Linda Pepe MD Primary Care Provider [phone] Source Comments [facility],non-owned Affiliates and Associated Physician Practices is amultiple site organization consisting of ambulatory clinics and hospital sitesin [place], [place], [place]. This disclosure is being madepursuant to the Care Everywhere program and may not contain all information available regarding this patient. Last updated 18.[facility] Advisor Client Match Social History Tobacco Use Types Packs/Day Years [...] to complete this topic MENINGOCOCCAL (Group B) VACC INE SHARED DECISION-MAKING Aged Out No longer eligibl e based on patient's age to complete this topic MENINGOCOCCAL GROUPS A/C/Y/W VACCINE Aged Out No longer eligible b ased on patient's age to complete this topic Care Teams Cementer Oil Well Relationship Specialty Start Date End Date Linda Pepe MD [address] [place], [place] [id number] PCP - General 05/10/18
--- OUTSIDE RECORDS SUMMARY | 2024-12-20 14:43 | XMS_ITS | Clinical Summary ---
Author Organization [facility] Address [facility] [place] [address] Care Team Providers Care Environmental Law Professor Name Role Phone Linda Pepe MD Primary Care Provider [phone] Allergies No known active allergies Medications aspirin [...] on file Legal Sex Female 9:41 AM UNIVERSAL WORKER ASSISTED LIVING Gender Identity Not on file Sexual Orientation Not on file Last Filed Vital Signs Vital Sign Reading Time Taken Comments Blood Pressure 128/70 10/26/2019 2:23 PM UNIVERSAL WORKER ASSISTED LIVING Pulse 83 10/26/2019 2:23 PM UNIVERSAL WORKER ASSISTED LIVING Temperature 36.7 C (98 F) 10/26/2019 2:23 PM UNIVERSAL WORKER ASSISTED LIVING Respiratory Rate 16 10/26/2019 2:23 PM UNIVERSAL WORKER ASSISTED LIVING Oxygen Saturation 99% 10/26/2019 2:23 PM UNIVERSAL WORKER ASSISTED LIVING Inhaled Oxygen Concentration - - Weight 81.6 kg (180 lb) 10/26/2019 2:23 PM UNIVERSAL WORKER ASSISTED LIVING Height 165.1 cm (5' 5 ) 10/26/2019 2:23 PM UNIVERSAL WORKER ASSISTED LIVING Body Mass Index 29.95 10/26/2019 2:23 PM UNIVERSAL WORKER ASSISTED LIVING Plan of Treatment Health Maintenance Due Date Last Done Comments Colorectal Cancer Screening Colonoscopy (10 Years) 1950 Hepatitis C 1969 DTaP, Tdap and Td Vaccines ( 1 - Tdap) 1970 Zoster Vaccines (1 of 2) 2001 Dexa Scan (General) 2016 Pneumococcal Vaccine: 65+ Ye ars (1 of 1 - PCV) 2016 Mammogram Screening 10/06/2020 10/06/2018 COVID-19 Vaccine (1 - 2023-2 5 season) 2024 RSV Immunization or 60+ Years (1 - 1-dose 75+ series) 2026 Meningococcal B Vaccine Aged Out No l onger eligible based on patient's age to complete this topic Meningococcal Vaccine Aged Out No aleksandar senthil eligible based on patient's age to complete this topic RSV Immunizations Under 20 Months Aged Out No longer eligible based on [...] Recently Relevant to Health Maintenance Care Teams Environmental Law Professor Relationship Specialty Start Date End Date Linda Pepe MD PCP - General FAMILY PRACTICE 10/26/19
--- OUTSIDE RECORDS SUMMARY | 2024-12-20 14:43 | XMS_ITS | Clinical Summary ---
Author Organization [place] [id number] [facility] Address [address] [place] [address] Care Team Providers Care [employer] Volleyball Coach Name Role Phone Linda Pepe MD Primary Care Provider [phone] Jensen Bajwa MD Unavailable [phone] Allergies Active Allergy Reactions Criticality Noted Date [...] capsule (40 mg total) by mouth daily 11/09/19 21 Active ergocalciferol (VITAMIN D) 50,000 unit capsule Take 1 capsule (50,000 Units total) by mouth once a week 04/15/20 21 Active aspirin 81 mg enteric coated tablet Take 1 tablet (81 mg total) by mouth daily Active fluticasone propionate (FLONASE) 50 mcg/actuation nasal spray Administer 1 spray into each nostril daily Active famotidine (PEPCID) 40 mg tabletIndicati ons:Laryngeal spasm Take 1 tablet (40 mg total) by mouth nightly 90 tablet 3 05/14/20 23 Active traZODone (DESYREL) 150 mg tablet 150 MG ORALLY EVERY DAY AT BEDTIME NEEDED FOR INSOMNIA 11/29/19 24 Active cyclobenzaprin e (FLEXERIL) 10 mg tabletIndicati ons:Right hip pain Take 1 tablet (10 mg total) by mouth 2 (two) times a day as needed for muscle spasms 20 tablet 06/02/[address] (VOLTAREN) 50 mg EC tablet TAKE 1 TABLET BY MOUTH THREE TIMES A DAY 90 tablet 3 11/16/19 25 Active celecoxib (CeleBREX) 100 mg capsuleIndicat ions:Chronic pain of both shoulders Take 1 capsule (100 mg total) by mouth 2 (two) times a day 48 capsule 3 11/22/19 25 Active celecoxib (CeleBREX) 100 mg capsuleIndicat ions:Chronic pain of both shoulders TAKE 1 CAPSULE BY MOUTH TWICE A DAY 48 capsule 3 07/18/20 24 025 Discontin ued(Reord er) Active Problems Problem Noted Date Diagnosed Date Laryngeal spasm 01/07/2023 Assessment & Plan (01/07/2023 2:25 PM CDT): Pepcid 40 mg at bedtime Continue omeprazole in the Morning Will obtain EGD report Continue Darlin Laryngopharyngeal reflux discussed and Handout provided Loose body in right elbow 12/23/2021 Overview (12/23/2021): Added automatically from request for surgery [id number] Right elbow pain 01/24/2021 Lateral epicondylitis 12/19/2020 [...] the Morning Will obtain EGD report Immunizations Immunization Administration Dates Next Due Influenza, Trivalent, Adjuvanted, [...] 09/20/2012 lesions [facility] from inside throat [facility]. [facility] concerned with positioning after surgery for drainage [...] on file Legal Sex Female 2:14 AM ANIMAL HUSBANDRY TECHNICIAN Gender Identity Not on file Sexual Orientation [...] vaccine 65+ (1 of 1 - PCV) 2001 Well Visit 65+ 2016 Breast Cancer Screening-Mammogram 10/06/2019 019, 08/24/2017 Zoster Vaccine (2 of 2) 06/02/2022 04/07/2022 Influenza Vaccine (#1) 2024 9, 06/30/2018, 07/20/2017, Additional history exists Medical Devices Implanted Type Area Vending Machine Mechanic Device Identifier Shelf Expiration Date Model / Serial / Lot Breast Breast Bilateral: Chest Procedures Procedure Name Priority Date/Time Associated Diagnosis Comments SCREENING MAMMOGRAM BILATERAL W POLLO W IMPLANTS Schedule Routine, Read Routine (OP Routine) 10/06/2018 11:33 AM ANIMAL HUSBANDRY TECHNICIAN Encounter for screening mammogram for malignant neoplasm of breast from Last 3 Months or Most Recently Relevant to Health Maintenance Results * Screening Mammogram Bilateral w Pollo w Implants (10/06/2018 11:33 AM ANIMAL HUSBANDRY TECHNICIAN) Anatomical Region Laterality Modality Breast Bilateral Digital Radiogra phy Narrative 10/08/2018 8:50 AM ANIMAL HUSBANDRY TECHNICIAN Mammogram Technique: Bilateral Digital Breast Tomosynthesis, Bilateral C-view 2D Screening mammogram. Views obtained: bilateral craniocaudal; bilateral craniocaudal implant displaced; bilateral mediolateral oblique; and bilateral mediolateral oblique implant displaced. Computer Aided Detection was performed. Mammogram Findings: The present examination has been compared to a prior imaging study performed at [facility] on 08/24/2017. There are scattered areas of [...] to a prior imaging study performed at [facility] on 08/24/2017. There are scattered areas of fibroglandular density. There is no suspicious abnormality in either breast. Impression: Annual screening mammography is recommended. OVERALL FINAL ASSESSMENT: BI-RADS CATEGORY 1: Negative. Linda Pepe MD IMG MAMMO PROCEDURES Final Resu lt from Last 3 Months or Most Recently Relevant to Health Maintenance Insurance [employer] MEDICARE ADVANTAGE [facility] MEDIC[facility] Address: [facility] [address] [place] [address] [facility] HMO/PPO Address: [address] [address] [place] [address] [address] [place] [address] [place] [address] [facility] MEDICARE ADVANTAGE [facility] MEDIC[facility] Address: [address] [address] [place] [address] Advance Directives For more information, please contact: [phone] * Full Code (Latest Code Status on File) Date Activated Date Inactivated Comments 01/21/2023 7:52 AM 01/21/2023 2:28 PM * Full Code Date Activated Date Inactivated Comments 01/21/2023 7:52 AM 01/21/2023 7:52 AM Care Teams [employer] Volleyball Coach Relationship Specialty Start Date End Date Linda Pepe MD PCP - General Family Medicine 04/13/19 Jensen Bajwa MD [address] [place] [address] Consulting Physician Orthopedic Surgery 12/31/21
--- OUTSIDE RECORDS SUMMARY | 2024-12-20 14:43 | XMS_ITS | Referral Summary ---
Author Organization [place] [id number] [facility] Address [address] [place] [address] Care Team Providers Care Surface Supply Breathing Apparatus Name Role Phone Linda Pepe MD Primary Care Provider [phone] Jensen Bajwa MD Unavailable [phone] Allergies Active Allergy Reactions Criticality Noted Date [...] (12/23/2021): Added automatically from request for surgery [id number] Right elbow pain 01/24/2021 Lateral epicondylitis 12/19/2020 [...] on file Legal Sex Female 2:14 AM UTILITIES MANAGER Gender Identity Not on file Sexual Orientation [...] on file Medical Devices Implanted Type Area Load Out Person Device Identifier Shelf Expiration Date Model / Serial / Lot Breast Breast Bilateral: Chest Procedures Procedure Name Priority Date/Time Associated Diagnosis Comments SCREENING MAMMOGRAM BILATERAL W POLLO W IMPLANTS Schedule Routine, Read Routine (OP Routine) 10/06/2018 11:33 AM UTILITIES MANAGER Encounter for screening mammogram for malignant neoplasm of breast from Last 3 Months or Most Recently Relevant to Health Maintenance Results * Screening Mammogram Bilateral w Pollo w Implants (10/06/2018 11:33 AM UTILITIES MANAGER) Anatomical Region Laterality Modality Breast Bilateral Digital Radiogra phy Narrative 10/08/2018 8:50 AM UTILITIES MANAGER Mammogram Technique: Bilateral Digital Breast Tomosynthesis, Bilateral [...] OVERALL FINAL ASSESSMENT: BI-RADS CATEGORY 1: Negative. us Linda Pepe MD IMG MAMMO PROCEDURES Final Resu lt from Last 3 Months or Most Recently Relevant to Health Maintenance Insurance [facility] MEDICARE ADVANTAGE [facility] MEDICARE RAILROAD [facility] MEDICARE ADVANTAGE Advance Directives For more information, please contact: [phone] * Full Code (Latest Code Status on File) Date Activated Date Inactivated Comments 01/21/2023 7:52 AM 01/21/2023 2:28 PM * Full Code Date Activated Date Inactivated Comments 01/21/2023 7:52 AM 01/21/2023 7:52 AM Care Teams Surface Supply Breathing Apparatus Relationship Specialty Start Date End Date Linda Pepe MD PCP - General Family Medicine 04/13/19 Jensen Bajwa MD [address] [place] [address] Consulting Physician Orthopedic Surgery 12/31/21
--- OUTSIDE RECORDS SUMMARY | 2024-12-20 14:43 | XMS_ITS | Encounter Summary ---
Author Organization [facility] Address [address] [place] [address] Care Team Providers Care Pv Design And Installation Technician Name Role Phone Linda Pepe MD Primary Care Provider [phone] Encounter Details Date Type Department Care Team (Late st Contact Info) Description 11/15/2019 Lab Requisition [facility] Lab [address] [place] [address] [place] [address] [place] [address] Social History Tobacco Use Types Packs/Day Years [...] Comments DERMATOPATHOLOGY Routine 11/15/2019 12:0 0 AM CAMPUS REP documented in this encounter Results * DERMATOPATHOLOGY (11/15/2019 12:00 AM CAMPUS REP) Case Report Dermatopathology Report Case: [id number] Authorizing Provider: Zunilda Trevino MD Collected: 11/15/2019 12:00 AM Ordering Location: [facility] Received: 11/15/2019 12:14 PM Pathologist: Melani Brown MD Specimens: A) - Skin, left suprapubic skin B) - Skin, left anterior lateral distal thigh C) - Skin, left rib cage 0 3:05 PM CAMPUS REP DERMATOPATHOLOGY LABORATORY Final Diagnosis Specimen A. SKIN, left suprapubic skin: SEBORRHEIC KERATOSIS, MACULAR (L82.1) Specimen B. 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 SKIN, left rib cage: BENIGN VERRUCOUS KERATOSIS, INFLAMED (L82.1) 0 3:05 PM [facility] DERMATOPATHOLOGY LABORATORY Clinical History A: Flat seborrheic keratosis vs R/O melanoma. B: Inflamed seborrheic keratosis vs squamous cell carcinoma vs actinic keratosis. C: Inflamed seborrheic keratosis. . 0 3:05 PM [facility] DERMATOPATHOLOGY LABORATORY Gross Description Specimen A: Received is one formalin filled container labeled with the patient's name and designated left suprapubic skin. The specimen consists of a shave biopsy measuring [id number]. Jar 0. Specimen B: Received is one formalin filled container labeled with the patient's name and designated left anterior lateral distal thigh. The specimen consists of a shave biopsy measuring [id number]. Jar 0. Specimen C: Received is one formalin filled container labeled with the patient's name and designated left rib cage. The specimen consists of a shave biopsy measuring [id number]. Jar 0. 0 3:05 PM [facility] DERMATOPATHOLOGY LABORATORY Microscopic Description Specimen A. SKIN, [...] or a seborrheic keratosis. 0 3:05 PM CAMPUS REP DERMATOPATHOLOGY LABORATORY Disclaimer An external and internal positive and negative controls are appropriate for the histochemical, immunohistochemical and immunofluorescence stain(s) in this case (if any), except where stated explicitly. The performance characteristics of the stain(s) cited in this report were developed and its performance characteristic determined by the Dermatopathology Laboratory at [facility], directed by Dr. Nima Maria. These tests need not be, and therefore are not, approved by the [place] Food and Drug Administration. The tests are used for clinical purposes. Billing Codes Specimen Charges Stain Charges 55630 59423 96172 1 1 1 43385 1 0 3:05 PM CAMPUS REP DERMATOPATHOLOGY LABORATORY Embedded Images 0 3:05 PM CAMPUS REP DERMATOPATHOLOGY LABORATORY Pathology/Cytology TISSUE SPECIMEN FROM SKIN / Unknown 11/15/2019 11/15/2019 12:14 PM CAMPUS REP Miscellaneous samples (specimen) TISSUE SPECIMEN FROM SKIN / Unknown 11/15/2019 11/15/2019 12:14 PM CAMPUS REP Miscellaneous samples (specimen) TISSUE SPECIMEN FROM SKIN / Unknown 11/15/2019 11/15/2019 12:14 PM CAMPUS REP Zunilda Trevino MD LAB - PATHOLOGY/C YTOLOGY ORDERABLES DERMATOPATHOLOGY LABORATORY [facility] - Department of Dermatology [address] [place] [address], [address] [place] [address], [facility] [phone] documented in this encounter Visit Diagnoses Not on filedocumented in this encounter Care Teams Pv Design And Installation Technician Relationship Specialty Start Date End Date Linda Pepe MD [address] [place] [address] PCP - General 05/10/18 documented as of this encounter
== END 2024-12-20 13:33 | disposition home or self-care (01) ==
PROVIDERS: PCP Family Medicine; Visit Provider Plastic Surgery
DX: M18.12 Unilateral primary osteoarthritis of first carpometacarpal joint, left hand (principal)
CPT/HCPCS: 73130

== ENCOUNTER 2025-04-29 13:54 | Observation (INO) | payer MEDICARE, SELFPAY ==
[2025-04-29] VITALS (9 sets, daily range): BP systolic 119–198; BP diastolic 60–92; PULSE 63–86; RESP 15–22; TEMP 36.3–36.4; O2SAT 94–99; BMI 33.4
--- NOTE | ~2025-04-29 | CT_ITS ---
EXAMINATION: CTA chest PE protocol DATE: 04/29/2025 16:55 INDICATION: Hypoxic, exertional shortness of breath TECHNIQUE: Computed tomography angiography (CTA) of the chest was performed with 100 mL Omnipaque-350 intravenous contrast timed to evaluate the pulmonary arteries. Coronal maximum intensity projection 3D-reconstructions were created by the technologist. The dose-length product (DLP) was 704.14 mGy-cm. Automated exposure control and iterative reconstruction technique were employed. COMPARISON: CT chest 02/10/2018. FINDINGS: Lung parenchyma and airways: Patent airways. Mild scattered groundglass opacities. Mild septal thicke blanca. Small foci of tree-in-bud opacities in the lingula and right middle lobe. Pleura: Small bilateral pleural effusions, with pleural thickening, greater in the left hemithorax. Thoracic inlet, axillae and chest wall: No thyroid mass. Bilateral breast implants. Thoracic aorta: No significant dilation. No dissection. Mediastinum: Enlarged mediastinal lymph nodes. Calcified nodes. Heart and pericardium: Mild cardiomegaly. No pericardial effusion. Coronary artery calcifications: Absent. Upper abdomen: Status post cholecystectomy. Bones: No acute osseous finding. Pulmonary arteries: Study quality: Adequate. No pulmonary emboli detected. IMPRESSION: No CT evidence of acute pulmonary embolus. Small foci of tree-in-bud opacities in the lingula and right middle lobe, may represent atypical infe ction or aspiration. Mild interstitial edema. Trace bilateral pleural effusions with pleural thickening. Mediastinal lymphadenopathy. Reviewed, dictated and finalized at location K. IMPRESSION: No CT evidence of acute pulmonary embolus. Small foci of tree-in-bud opacities in the lingula and right middle lobe, may r epresent atypical infection or aspiration. Mild interstitial edema. Trace bilateral pleural effusions with pleural thickening. Mediastinal lymphadenopathy.
--- NOTE | ~2025-04-29 | CT_ITS ---
EXAMINATION: CT brain wo con DATE: 04/29/2025 15:24 INDICATION: htn, headache . TECHNIQUE: Computed tomography (CT) of the head was performed without intravenous contrast. The mA wa s adjusted according to patient size. Iterative reconstruction technique was employed. The dose-lengt h product was 605.33 mGy-cm. COMPARISON: None. FINDINGS: No acute intracranial hemorrhage or extra-axial fluid collection. No hydrocephalus, mass, or herniation. No acute ischemic infarct. Unremarkable dural venous sinus attenuation. No acute osseous abnormality. Retention cyst/polyp in the right maxillary sinus. Aerated secretions and air-fluid level in the righ t maxillary sinus. The remaining aerated spaces are clear. Moderate atrophy and chronic white matter change. Atherosclerotic intracranial calcification. Bilater al lens replacements. Bilateral basal ganglia calcifications. IMPRESSION: No acute intracranial process. Right maxillary sinus findings may represent acute sinusitis in the appropriate clinical context. Reviewed, dictated and finalized at location K.
--- OUTSIDE RECORDS SUMMARY | 2025-04-29 13:55 | XMS_ITS | Clinical Summary ---
Author Organization [place] [id number] [facility] Address [address] [place] [address] Care Team Providers Care Cocoa Press Operator Name Role Phone Linda Pepe MD Primary Care Provider [phone] Jensen Bajwa MD Unavailable Allergies Active Allergy Reactions Criticality Noted Date [...] mouth nightly 90 tablet 3 3 Active traZODone (DESYREL) 150 mg tablet 150 MG ORALLY EVERY DAY AT BEDTIME NEEDED FOR INSOMNIA 4 Active cyclobenzaprin e (FLEXERIL) 10 mg tabletIndicati ons:Right hip pain Take 1 tablet (10 mg total) by mouth 2 (two) times a day as needed for muscle spasms 20 tablet 4 Active Additional Information Patient not taking.Reported on 01/18/[address] (VOLTAREN) 50 mg EC tablet TAKE 1 TABLET BY MOUTH THREE TIMES A DAY 90 tablet 3 5 Active Additional Information Patient not taking.Reported on 01/18/2025 celecoxib (CeleBREX) 100 mg capsuleIndicat ions:Chronic pain of both shoulders TAKE 1 CAPSULE BY MOUTH TWICE A DAY 48 capsule 3 5 Active Active Problems Problem Noted Date Diagnosed Date Laryngeal spasm 01/07/2023 Assessment & Plan (01/07/2023 2:25 PM CDT): Pepcid 40 mg at bedtime Continue omeprazole in the Morning Will obtain EGD report Continue Darlin Laryngopharyngeal reflux discussed and Handout provided Loose body in right elbow 12/23/2021 Overview (12/23/2021): Added automatically from request for surgery [id number] Right elbow pain 01/24/2021 Lateral epicondylitis 12/19/2020 [...] 09/20/2012 lesions removed from inside throat x2. [facility]. concerned with positioning after surgery for [...] on file Legal Sex Female 2:14 AM LITHOGRAPHING MACHINE OPERATOR Gender Identity Not on file [...] 2:50 PM CDT Height 165.1 cm (5' 5) 06/02/2024 2:50 PM CDT Body Mass Index [...] of 2) 06/02/2022 04/07/2022 Influenza Vaccine (#1) 2025 9, 06/30/2018, 07/20/2017, Additional history exists Medical Devices Implanted Type Area Client Account Representative Device Identifier Shelf Expiration Date Model / Serial / Lot Breast Breast Bilateral: Chest Procedures Procedure Name Priority Date/Time Associated Diagnosis Comments SCREENING MAMMOGRAM BILATERAL W POLLO W IMPLANTS Schedule Routine, Read Routine (OP Routine) 10/06/2018 11:33 AM LITHOGRAPHING MACHINE OPERATOR Encounter for screening mammogram for malignant neoplasm of breast from Last 3 Months or Most Recently Relevant to Health Maintenance Results * Screening Mammogram Bilateral w Pollo w Implants (10/06/2018 11:33 AM LITHOGRAPHING MACHINE OPERATOR) Anatomical Region Laterality Modality Breast Bilateral Digital Radiogra phy Narrative 10/08/2018 8:50 AM LITHOGRAPHING MACHINE OPERATOR Mammogram Technique: Bilateral Digital Breast Tomosynthesis, Bilateral C-view 2D Screening mammogram. Views obtained: bilateral craniocaudal; bilateral craniocaudal implant displaced; bilateral mediolateral oblique; and bilateral mediolateral oblique implant displaced. Computer Aided Detection was performed. Mammogram Findings: The present examination has been compared to a prior imaging study performed at [facility] on 08/24/2017. There are scattered areas [...] to a prior imaging study performed at [facility] on 08/24/2017. There are scattered areas of fibroglandular density. There is no suspicious abnormality in either breast. Impression: Annual screening mammography is recommended. OVERALL FINAL ASSESSMENT: BI-RADS CATEGORY 1: Negative. Linda Pepe MD IMG MAMMO PROCEDURES Final Resu lt from Last 3 Months or Most Recently Relevant to Health Maintenance Insurance [facility] MEDICARE ADVANTAGE [facility] MEDIC[facility] Address: [address] [address] [facility] HMO/PPO Address: [address] [address] [place] [address] MEDICARE RAILROAD [facility] MEDICARE ADVANTAGE [facility] MEDICARE Address: [address] [address] [place] [address] Advance Directives For more information, please contact: [phone] * Full Code (Latest Code Status on File) Date Activated Date Inactivated Comments 01/21/2023 7:52 AM 01/21/2023 2:28 PM * Full Code Date Activated Date Inactivated Comments 01/21/2023 7:52 AM 01/21/2023 7:52 AM Care Teams Cocoa Press Operator Relationship Specialty Start Date End Date Linda Pepe MD PCP - General Family Medicine 04/13/19 Jensen Bajwa MD [address] [facility] [address] [address] Consulting Physician Orthopedic Surgery 12/31/21
--- OUTSIDE RECORDS SUMMARY | 2025-04-29 13:55 | XMS_ITS | Encounter Summary ---
Author Organization [facility] Address [address] [place] [address] Care Team Providers Care Front Office Spec Name Role Phone Linda Pepe MD Primary Care Provider [phone] Encounter Details Date Type Department Care Team (Latest Contact Info) Description 01/09/2009 Outpatient Historical [facility], [address] Erickson Tabor MD NO ADDRESS ON FILE Dysphagia, Unspecified Social History Tobacco Use Types Packs/Day Years Used Date Smoking Tobacco: Never Assessed Comments Unknown Sex and Gender Information Value Date Recorded Sex Assigned at Not on file Legal Sex Female 5:24 AM KNOT BUMPER Gender Identity Not on file Sexual Orientation Not on file documented as of this encounter Plan of Treatment Not on file documented as of this encounter Procedures Procedure Name Priority Date/Time Associated Diagnosis Comments PATHOLOGY Routine 01/09/2009 2:18 PM CDT documented in this encounter Results * PATHOLOGY (01/09/2009 2:18 PM CDT) FINAL REPORT [address] [address] Patient: ISAI DOWNING : 1950 Procedure Date: 01/09/2009 Accession Date: 01/09/2009 Case No: [id number] Ordering Dr: ERICKSON TABOR Case types AW, BW, FW, NW and SH [place] [facility] [place] SURGICAL PATHOLOGY & NON-GYNECOLOGIC CYTOPATHOLOGY REPORT DIAGNOSIS OROPHARYNX, RIGHT TONGUE BASE, BIOPSY: - BENIGN LINGUAL TONSILLAR TISSUE. Specimen Description: Right tongue base biopsy. Operative Procedure: Biopsy. Patient Information/Histo ry/Diagnosis: Dysphagia. Gross: Received in one container labeled Isai Downing, right tongue base biopsy are two pieces of pink-rivas tissue measuring 0.5 cm and 0.6 cm. Both are submitted in block A1. [facility] 01.10.2009 07:09 am Microscopic: The slides are labeled [id number] and Kaelynfabian Isai. The specimen from the right tongue base consists of benign lingual tonsillar-type tissue. There is no significant surface epithelial atypia. No tumor is seen. /[facility] 01.10.2009 12:35 pm Staging Form: No. ELECTRONIC SIGNATURE FOR MIN CARRILLO M.D.- 01/10/09 04:24 pm INTERFACE SYSTEM 01/09/2009 2:18 PM CDT Erickson Tabor MD PATHOLOGY/CYTOLOGY ORDERABLES Final Result INTERFACE SYSTEM Refer to clinic/hospital department documented in this encounter Visit Diagnoses Diagnosis Dysphagia, unspecified(787.20) Dysphagia, unspecified documented in this encounter Care Teams Front Office Spec Relationship Specialty Start Date End Date Linda Pepe MD [address] [place] [address] PCP - General Family Practice 03/02/18 documented as of this encounter
--- OUTSIDE RECORDS SUMMARY | 2025-04-29 13:55 | XMS_ITS | Encounter Summary ---
Author Organization [facility] Address [address] [facility] [place] [place] [address] Care Team Providers Care Rope Cutter Name Role Phone Linda Pepe MD Primary Care Provider [phone] Encounter Details Date Type Department Care Team (Late st Contact Info) Description 04/03/2021 Lab Requisition [facility] [address] [place] [address] Denys Delcid Jr., MD [address] [facility] [address] [place] [address] Social History Tobacco Use Types Packs/Day Years Used Date Smoking Tobacco: Never Assessed Comments Unknown Sex and Gender Information Value Date Recorded Sex Assigned at Not on file Legal Sex Female 9:08 AM CDT Gender Identity Not on file Sexual Orientation Not on file documented as of this encounter Plan of Treatment Not on file documented as of this encounter Procedures Procedure Name Priority Date/Time Associated Diagnosis Comments DERMATOPATHOLOGY Routine 04/02/2021 12:0 0 AM CDT documented in this encounter Results * DERMATOPATHOLOGY (04/02/2021 12:00 AM CDT) Case Report Dermatopathology Report Case: [id number] Authorizing Provider: Denys Delcid Jr., MD Collected: 04/02/2021 12:00 AM Ordering Location: [facility] Received: 04/03/2021 12:35 PM Pathologist: Zoe Cornejo MD Specimens: A) - Skin, right inferior upper back B) - Skin, left superior lateral midback C) - Skin, left lateral breast 3-4:00 region D) - Skin, right lateral breast 9-10:00 region E) - Skin, right superior flank 1:23 PM T DERMATOPATHOLOGY LABORATORY Final Diagnosis Specimen A. SKIN, right inferior upper back: BENIGN VERRUCOUS KERATOSIS, INFLAMED (L82.1) Specimen B. SKIN, left superior lateral midback: SEBORRHEIC KERATOSIS (L82.1) Specimen C. SKIN, left lateral breast 3-4:00 region: SEBORRHEIC KERATOSIS (L82.1) Specimen D. SKIN, right lateral breast 9-10:00 region: SEBORRHEIC KERATOSIS (L82.1) Specimen E. SKIN, right superior flank: SEBORRHEIC KERATOSIS (L82.1) 1:23 PM T DERMATOPATHOLOGY LABORATORY at 1323 CDT Clinical History A-E: Inflamed seborrheic keratosis vs verruca vulgaris vs squamous cell carcinoma. . 1:23 PM [facility] DERMATOPATHOLOGY LABORATORY Gross Description Specimen A: Received is one formalin filled container labeled with the patient's name and designated right inferior upper back. The specimen consists of a shave biopsy measuring 5c0o4ta. Jar 0. Specimen B: Received is one formalin filled container labeled with the patient's name and designated left superior lateral midback. The specimen consists of a shave biopsy measuring 0h4n0az. Jar 0. Specimen C: Received is one formalin filled container labeled with the patient's name and designated left lateral breast 3-4:00 region. The specimen consists of a shave biopsy measuring 6a1k7ol. Jar 0. Specimen D: Received is one formalin filled container labeled with the patient's name and designated right lateral breast 9-10:00 region. The specimen consists of a shave biopsy measuring 8e4t0is. Jar 0. Specimen E: Received is one formalin filled container labeled with the patient's name and designated right superior flank. The specimen consists of a shave biopsy measuring 8z4w1mn. Jar 0. 1:23 PM [facility] DERMATOPATHOLOGY LABORATORY Microscopic Description Specimen A. [...] characteristic determined by the Dermatopathology Laboratory at [facility], directed by Dr. Nima Maria. These tests need not be, and therefore are not, approved by the [place] Food and Drug Administration. The tests are used for clinical purposes. Billing Codes Specimen Charges Stain Charges 15306 21378 02304 26774 76306 1 1 1 1 1 1 1:23 [...] CDT Denys Delcid Jr., MD LAB - PATHOLOGY/CYTOLOG Y ORDERABLES Final Result DERMATOPATHOLOGY LABORATORY [facility] - Department of Dermatology [address], [address] [phone] documented in this encounter Visit Diagnoses Not on filedocumented in this encounter Care Teams Rope Cutter Relationship Specialty Start Date End Date Linda Pepe MD [address] [place] [address] PCP - General 05/10/18 documented as of this encounter
--- OUTSIDE RECORDS SUMMARY | 2025-04-29 13:55 | XMS_ITS | Encounter Summary ---
Author Organization [facility] Address [address] [place] [address] Care Team Providers Care Cable Tower Operator Name Role Phone Linda Pepe MD Primary Care Provider [phone] Encounter Details Date Type Department Care Team (Late st Contact Info) Description 01/14/2000 Outpatient Historical HIS MRI DEPT Conversion, History Mastodynia (Primary Dx) Social History Tobacco Use Types Packs/Day Years Used Date Smoking Tobacco: Never Assessed Comments Unknown Sex and Gender Information Value Date Recorded Sex Assigned at Not on file Legal Sex Female 5:24 AM SHIRT PRESSER Gender Identity Not on file Sexual Orientation Not on file documented as of this encounter Plan of Treatment Not on file documented as of this encounter Visit Diagnoses Diagnosis Mastodynia- Primary documented in this encounter Care Teams Cable Tower Operator Relationship Specialty Start Date End Date Linda Pepe MD [address] [place] [address] PCP - General Family Practice 03/02/18 documented as of this encounter
--- OUTSIDE RECORDS SUMMARY | 2025-04-29 13:55 | XMS_ITS | Continuity of Care Document ---
Author Organization [facility] Address [address] [place] [address] Phone Care Team Providers Care Bottom Steep Tender Name Role Phone Piper OD, Hitesh Unavailable Unavailable Advance Directives Directive Yes / No Effective Date File Name No Information Encounters Encounter Description Practice Location Reason(s) For Visit Diagnoses Date Provider Providers Copied on Encounter [facility], [address] [place] [address] [address], [place], [place], [address], [place] tel:[phone] [facility] [place] No Information 5-200 1 Piper OD Hitesh. [address] [facility] [address] , [address], [place], [address], [place]. tel:[phone] Family History Family Member Type Diagnosis Age At Onset No Information Payers Payer name Insurance type Covered constitution party ID Authoriza tion(s) No Information Social [...]
--- OUTSIDE RECORDS SUMMARY | 2025-04-29 13:55 | XMS_ITS | Clinical Summary ---
Author Organization [facility] Address [address] [place] [address] Phone Care Team Providers Care Cloth Washer Name Role Phone Linda Pepe MD Primary Care Provider [phone] Allergies No known active allergies Medications omeprazole [...] on file Legal Sex Female 5:24 AM COIL CUTTER Gender Identity Not on file Sexual Orientation [...] 7:45 AM CDT Height 167.6 cm (5' 6) 03/23/2018 7:45 AM CDT Body Mass Index [...] 2001 OSTEOPOROSIS SCREENING 2016 INFLUENZA VACCINE (#1) 2025 06/08/2009 RSV VACCINE (60+ or ) (1 - 1-dose 75+ series) 2026 Insurance MEDICARE [employer] [facility] Member Subscriber Plan / Payer (Ef fective 2021-Present) Name:Sheree Cheng Relation to Subscriber:Spouse Name:Brice Cheng Date of :1968 (Home) (Work) Address: [address] [place] [address] Payer ID:Not on file Group ID:[id number] Type:Practitioner Only Address: [address] [place] [address] Advance Directives For more information, please contact: [phone] * Full Code (Latest Code Status on [...] 9:55 AM 07/13/2009 1:01 PM Care Teams Cloth Washer Relationship Specialty Start Date End Date Linda Pepe MD [address] [place] [address] PCP - General Family Practice 03/02/18
--- OUTSIDE RECORDS SUMMARY | 2025-04-29 13:55 | XMS_ITS | Encounter Summary ---
Author Organization [facility] Address 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 Gender Identity Not on file Sexual Orientation [...] AM CDT Narrative 12/19/2008 11:21 AM CDT [facility] [address] [place], [place] [address] Admit Date: 12/19/2008 KENZIECeline ISAI Banda Sex: F Admit Prov: ERICKSON TABOR Date: 1950 Primary Care Prov: CMRN: [id number] [id number] IM[facility]ING SERVICES Ordering Prov: N/A Accession Number: [id number] Interpretation ESOPHAGUS/BARIUM SWALLOW 12/19/2008 History: Dysphasia, 787.20 [...] Procedure Note Emely Jackson MD - 12/19/2008 [facility] [address] [place], [place] [address] Admit Date: 12/19/2008 OSCAR DOWNING Sex: F Admit Prov: ERICKSON TABOR Date:1950 Primary Care Prov: CMRN: [id number] [facility] [address] [place] [address] IMAGING SERVICES Ordering Prov: N/A Interpretation ESOPHAGUS/BARIUM [...] 12/19/2008 11:19 Transcribed: 12/19/2008 11:07 AMK Erickson Tabro MD DIAGNOSTIC IMAGING ORDERABLES Final Result * XR VIDEO SWALLOW (12/19/2008 8:40 AM CDT) Anatomical Region Laterality Modality Chest Other 12/19/2008 8:40 AM CDT Narrative 12/19/2008 10:53 AM CDT [facility] [address] [place], [place] [address] Admit Date: 12/19/2008 ISAI DOWNING Sex: F Admit Prov: ERICKSON TABOR Date: 1950 Primary Care Prov: CMRN: [id number] [facility] [id number] IMAGING SERVICES Ordering Prov: N/A Accession Number: [id number] Interpretation SWALLOWING FUNCTION/COOKIE SWALLOW, 12/19/2008 History: Dysphagia. [...] EMELY JACKSON 12/19/2008 10:51 Transcribed: 12/19/2008 09:55 [facility] Procedure Note Emely Jackson MD - 12/19/2008 [facility] [address] [place], [place] [address] Admit Date: 12/19/2008 OSCAR DOWNING Sex: F Admit Prov: ERICKSON TABOR Date:1950 Primary Care Prov: CMRN: [id number] [facility] [id number] IMAGING SERVICES Ordering Prov: N/A Interpretation SWALLOWING [...] unspecified documented in this encounter Care Teams Emergency Medcl Emt Relationship Specialty Start Date End Date Linda Pepe MD [address] [place] [address] PCP - General Family Practice 03/02/18 documented as of this encounter
--- OUTSIDE RECORDS SUMMARY | 2025-04-29 13:55 | XMS_ITS | Encounter Summary ---
Author Organization [facility] Address [address] [place] [address] Care Team Providers Care Medical Office Coordinator Name Role Phone Linda Pepe MD Primary Care Provider [phone] Encounter Details Date Type Department Care Team (Late st Contact Info) Description 11/15/2019 Lab Requisition [facility] [address] [place] [address] [place] [address] [place] [address] Social History Tobacco Use Types Packs/Day Years [...] Comments DERMATOPATHOLOGY Routine 11/15/2019 12:0 0 AM SPRAYER HAND documented in this encounter Results * DERMATOPATHOLOGY (11/15/2019 12:00 AM SPR[facility]ER HAND) Case Report Dermatopathology Report Case: [id number] Authorizing Provider: Zunilda Trevino MD Collected: 11/15/2019 12:00 AM Ordering Location: [facility] Received: 11/15/2019 12:14 PM Pathologist: Melani Brown MD Specimens: A) - Skin, left suprapubic skin B) - Skin, left anterior lateral distal thigh C) - Skin, left rib cage 0 3:05 PM [facility] DERMATOPATHOLOGY LABORATORY Final Diagnosis Specimen A. SKIN, left suprapubic skin: SEBORRHEIC KERATOSIS, MACULAR (L82.1) Specimen B. 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 SKIN, left rib cage: BENIGN VERRUCOUS KERATOSIS, INFLAMED (L82.1) 0 3:[address] [facility] DERMATOPATHOLOGY LABORATORY at 1505 SPRAYER HAND Clinical History A: Flat seborrheic keratosis vs R/O melanoma. B: Inflamed seborrheic keratosis vs squamous cell carcinoma vs actinic keratosis. C: Inflamed seborrheic keratosis. . 0 3:[address] [facility] DERMATOPATHOLOGY LABORATORY Gross Description Specimen A: Received is one formalin filled container labeled with the patient's name and designated left suprapubic skin. The specimen consists of a shave biopsy measuring 60c26d2ih. Jar 0. Specimen B: Received is one formalin filled container labeled with the patient's name and designated left anterior lateral distal thigh. The specimen consists of a shave biopsy measuring 1n9p3uf. Jar 0. Specimen C: Received is one formalin filled container labeled with the patient's name and designated left rib cage. The specimen consists of a shave biopsy measuring 7n8l3gi. Jar 0. 0 3:[address] [facility] DERMATOPATHOLOGY LABORATORY Microscopic Description Specimen A. [...] or a seborrheic keratosis. 0 3:05 PM [facility] DERMATOPATHOLOGY LABORATORY Disclaimer An external and internal positive and negative controls are appropriate for the histochemical, immunohistochemical and immunofluorescence stain(s) in this case (if any), except where stated explicitly. The performance characteristics of the stain(s) cited in this report were developed and its performance characteristic determined by the Dermatopathology Laboratory at [facility], directed by Dr. Nima Maria. These tests need not be, and therefore are not, approved by the [place] Food and Drug Administration. The tests are used for clinical purposes. Billing Codes Specimen Charges Stain Charges 85273 10713 30568 1 1 1 99364 1 0 3:05 PM [facility] DERMATOPATHOLOGY LABORATORY Embedded Images 0 3:05 PM [facility] DERMATOPATHOLOGY LABORATORY Pathology/Cytology TISSUE SPECIMEN FROM SKIN / Unknown 11/15/2019 11/15/2019 12:14 PM [facility] Miscellaneous samples (specimen) TISSUE SPECIMEN FROM SKIN / Unknown 11/15/2019 11/15/2019 12:14 PM [facility] Miscellaneous samples (specimen) TISSUE SPECIMEN FROM SKIN / Unknown 11/15/2019 11/15/2019 12:14 PM [facility] Zunilda Trevino MD LAB - PATHOLOGY/CYTOLOGY ORDERABLES Final Result DERMATOPATHOLOGY LABORATORY [facility] - Department of Dermatology [address] [facility] 5th [place] [address], [facility] [phone] documented in this encounter Visit Diagnoses Not on filedocumented in this encounter Care Teams Medical Office Coordinator Relationship Specialty Start Date End Date Linda Pepe MD [address] [place] [address] PCP - General 05/10/18 documented as of this encounter
--- OUTSIDE RECORDS SUMMARY | 2025-04-29 13:55 | XMS_ITS | Clinical Summary ---
Author Organization [facility] Address [facility] [place] [address] Care Team Providers Care Cognos Bi Developer Name Role Phone Linda Pepe MD Primary Care Provider [phone] Allergies No known active allergies Medications aspirin [...] on file Legal Sex Female 9:41 AM CHEMICAL MANAGER Gender Identity Not on file Sexual Orientation Not on file Last Filed Vital Signs Vital Sign Reading Time Taken Comments Blood Pressure 128/70 10/26/2019 2:23 PM CHEMICAL MANAGER Pulse 83 10/26/2019 2:23 PM CHEMICAL MANAGER Temperature 36.7 C (98 F) 10/26/2019 2:23 PM CHEMICAL MANAGER Respiratory Rate 16 10/26/2019 2:23 PM CHEMICAL MANAGER Oxygen Saturation 99% 10/26/2019 2:23 PM CHEMICAL MANAGER Inhaled Oxygen Concentration - - Weight 81.6 kg (180 lb) 10/26/2019 2:23 PM CHEMICAL MANAGER Height 165.1 cm (5' 5) 10/26/2019 2:23 PM CHEMICAL MANAGER Body Mass Index 29.95 10/26/2019 2:23 PM CHEMICAL MANAGER Plan of Treatment Health Maintenance Due Date Last Done Comments Colorectal Cancer Screening Colonoscopy (10 Years) 1950 Hepatitis C 1969 DTaP, Tdap and Td Vaccines ( 1 - Tdap) 1970 Pneumococcal Vaccine: 50+ Ye ars (1 of 1 - PCV) 2001 Zoster Vaccines (1 of 2) 2001 Dexa Scan (General) 2016 Mammogram Screening 10/06/2020 10/06/2018 COVID-19 Vaccine [...] Recently Relevant to Health Maintenance Care Teams Cognos Bi Developer Relationship Specialty Start Date End Date Linda Pepe MD PCP - General FAMILY PRACTICE 10/26/19
--- OUTSIDE RECORDS SUMMARY | 2025-04-29 13:55 | XMS_ITS | Clinical Summary ---
Author Organization [facility] Address [address] [place] [address] Care Team Providers Care Studio Director Name Role Phone Linda Pepe MD Primary Care Provider Source Comments [facility],non-owned Affiliates and Associated Physician Practices is amultiple site organization consisting of ambulatory clinics and hospital sitesin [place], [place], [place] and [place]. This disclosure is being madepursuant to the Care Everywhere program and may not contain all information available regarding this patient. Last updated 18.[facility] [employer] Social History Tobacco Use Types Packs/Day Years [...] VACCINE ( - 2023-2 5 season) 2024 DEPRESSION SCREENING 09/21/2024 INFLUENZA VACCINE (#1) 2025 Respiratory Syncytial Virus (RSV) Vaccine Pt: or [...] on patient's age to complete this topic Insurance [facility] MEDICARE ADV Care Teams Studio Director Relationship Specialty Start Date End Date Linda Pepe MD [address] [place] [address] PCP - General 05/10/18
--- OUTSIDE RECORDS SUMMARY | 2025-04-29 15:08 | XMS_ITS | Encounter Summary ---
Author Organization [facility] Address [address] [place] [address] Care Team Providers Care Body Builder Apprentice Name Role Phone Linda Pepe MD Primary Care Provider [phone] Encounter Details Date Type Department Care Team (Late st Contact Info) Description 12/19/2008 Outpatient Historical [facility] IMG-HOSP Erickson Tabor MD NO ADDRESS ON FILE Dysphagia, Unspecified Social History Tobacco Use Types Packs/Day Years Used Date Smoking Tobacco: Never Assessed Comments Unknown Sex and Gender Information Value Date Recorded Sex Assigned at Not on file Legal Sex Female 5:24 AM ASSOCIATE PROJECT MANAGER Gender Identity Not on file Sexual [...] AM CDT Narrative 12/19/2008 11:21 AM CDT [facility] [address] [place], [place] [address] Admit Date: 12/19/2008 KENZIECeline ISAI Banda Sex: F Admit Prov: ERICKSON TABOR Date: 1950 Primary Care Prov: CMRN: [id number] [id number] [facility] Ordering Prov: N/A Accession Number: [id number] Interpretation ESOPHAGUS/BARIUM SWALLOW 12/19/2008 History: Dysphasia, 787.20 [...] Procedure Note Emely Jackson MD - 12/19/2008 [facility] [address] [place], [place] [address] Admit Date: 12/19/2008 OSCAR DOWNING Sex: F Admit Prov: ERICKSON TABOR Date:1950 Primary Care Prov: CMRN: [id number] [facility] [address] [place] [address] IMAGING SERVICES Ordering Prov: N/A Interpretation ESOPHAGUS/BARIUM [...] AM CDT Narrative 12/19/2008 10:53 AM CDT [facility] [address] [facility] [place] [address] Admit Date: 12/19/2008 ISAI DOWNING Sex: F Admit Prov: ERICKSON TABOR Date: 1950 Primary Care Prov: CMRN: [id number] [id number] IM[facility]ING SERVICES Ordering Prov: N/A Accession Number: [id number] Interpretation SWALLOWING FUNCTION/COOKIE SWALLOW, 12/19/2008 History: Dysphagia. [...] EMELY JACKSON 12/19/2008 10:51 Transcribed: 12/19/2008 09:55 [facility] Procedure Note Emely Jackson MD - 12/19/2008 [facility] [address] [facility] [place] [address] Admit Date: 12/19/2008 OSCAR DOWNING Sex: F Admit Prov: ERICKSON TABOR Date:1950 Primary Care Prov: CMRN: [id number] [facility] [id number] IM[facility]ING SERVICES Ordering Prov: N/A Interpretation SWALLOWING [...] unspecified documented in this encounter Care Teams Body Builder Apprentice Relationship Specialty Start Date End Date Linda Pepe MD [address] [place] [address] PCP - General Family Practice 03/02/18 documented as of this encounter
--- OUTSIDE RECORDS SUMMARY | 2025-04-29 15:08 | XMS_ITS | Continuity of Care Document ---
Author Organization [facility] Address [address] [place] [address] Phone Care Team Providers Care Music Education Adjunct Professor Name Role Phone Piper OD, Hitesh Unavailable Unavailable Advance Directives Directive Yes / No Effective Date File Name No Information Encounters Encounter Description Practice Location Reason(s) For Visit Diagnoses Date Provider Providers Copied on Encounter [facility], [address] [place] [address] [address], [place], [place], [address], [place] tel:[phone] [facility] [place] No Information 5-200 1 Piper OD Hitesh. [address] [facility] [address] [place] , [address], [place], [address], [place]. tel:[phone] Family History Family Member Type Diagnosis Age [...]
--- OUTSIDE RECORDS SUMMARY | 2025-04-29 15:08 | XMS_ITS | Clinical Summary ---
Author Organization [facility] Address [address] [place] [address] Care Team Providers Care Full Roll Inspector Name Role Phone Linda Pepe MD Primary Care Provider [phone] Source Comments [facility],non-owned Affiliates and Associated Physician Practices is amultiple site organization consisting of ambulatory clinics and hospital sitesin [place], [place], [place] and [place]. This disclosure is being madepursuant to the Care Everywhere program and may not contain all information available regarding this patient. Last updated 18.[facility] [employer] Social History Tobacco Use Types Packs/Day Years [...] patient's age to complete this topic Insurance [facility] MEDICARE ADV Care Teams Full Roll Inspector Relationship Specialty Start Date End Date Linda Pepe MD [address] [place] [address] PCP - General 05/10/18
--- OUTSIDE RECORDS SUMMARY | 2025-04-29 15:08 | XMS_ITS | Clinical Summary ---
Author Organization [facility] Address [facility] [place] [address] Care Team Providers Care Roustabout Crew Name Role Phone Linda Peep MD Primary Care Provider [phone] Allergies No known active allergies Medications aspirin [...] on file Legal Sex Female 9:41 AM BALLET PROFESSOR Gender Identity Not on file Sexual Orientation Not on file Last Filed Vital Signs Vital Sign Reading Time Taken Comments Blood Pressure 128/70 10/26/2019 2:23 PM BALLET PROFESSOR Pulse 83 10/26/2019 2:23 PM BALLET PROFESSOR Temperature 36.7 C (98 F) 10/26/2019 2:23 PM BALLET PROFESSOR Respiratory Rate 16 10/26/2019 2:23 PM BALLET PROFESSOR Oxygen Saturation 99% 10/26/2019 2:23 PM BALLET PROFESSOR Inhaled Oxygen Concentration - - Weight 81.6 kg (180 lb) 10/26/2019 2:23 PM BALLET PROFESSOR Height 165.1 cm (5' 5) 10/26/2019 2:23 PM BALLET PROFESSOR Body Mass Index 29.95 10/26/2019 2:23 PM BALLET PROFESSOR Plan of Treatment Health Maintenance Due Date [...] Recently Relevant to Health Maintenance Care Teams Roustabout Crew Relationship Specialty Start Date End Date Linda Pepe MD PCP - General FAMILY PRACTICE 10/26/19
--- OUTSIDE RECORDS SUMMARY | 2025-04-29 15:08 | XMS_ITS | Encounter Summary ---
Author Organization [facility] Address [address] [place] [address] Care Team Providers Care Internal Medicine Hospitalist Name Role Phone Linda Pepe MD Primary Care Provider [phone] Encounter Details Date Type Department Care Team (Latest Contact Info) Description 01/09/2009 Outpatient Historical [facility], [address] Erickson Tabor MD NO ADDRESS ON FILE Dysphagia, Unspecified Social History Tobacco Use Types Packs/Day Years Used Date Smoking Tobacco: Never Assessed Comments Unknown Sex and Gender Information Value Date Recorded Sex Assigned at Not on file Legal Sex Female 5:24 AM LINE SERVICER Gender Identity Not on file Sexual Orientation Not on file documented as of this encounter Plan of Treatment Not on file documented as of this encounter Procedures Procedure Name Priority Date/Time Associated Diagnosis Comments PATHOLOGY Routine 01/09/2009 2:18 PM CDT documented in this encounter Results * PATHOLOGY (01/09/2009 2:18 PM CDT) FINAL REPORT [address] [address] Patient: ISAI DOWNING : 1950 Procedure Date: 01/09/2009 Accession Date: 01/09/2009 Case No: [id number] Ordering Dr: ERICKSON TABOR Case types AW, BW, FW, NW and SH are performed by [facility] [place], [place], [place] SURGICAL PATHOLOGY & NON-GYNECOLOGIC CYTOPATHOLOGY REPORT DIAGNOSIS OROPHARYNX, RIGHT TONGUE BASE, BIOPSY: - BENIGN LINGUAL TONSILLAR TISSUE. Specimen Description: Right tongue base biopsy. Operative Procedure: Biopsy. Patient Information/Histo ry/Diagnosis: Dysphagia. Gross: Received in one container labeled Isai Downing, right tongue base biopsy are two pieces of pink-rivas tissue measuring 0.5 cm and 0.6 cm. Both are submitted in block A1. [facility] 01.10.2009 07:09 am Microscopic: The slides are labeled [id number] and Kaelynfabian Isai. The specimen from the right tongue base consists of benign lingual tonsillar-type tissue. There is no significant surface epithelial atypia. No tumor is seen. /[facility] 01.10.2009 12:35 pm Staging Form: No. ELECTRONIC SIGNATURE FOR MIN CARRILLO M.D.- 01/10/09 04:24 pm INTERFACE SYSTEM 01/09/2009 2:18 PM CDT Erickson Tabor MD PATHOLOGY/CYTOLOGY ORDERABLES Final Result INTERFACE SYSTEM Refer to clinic/hospital department documented in this encounter Visit Diagnoses Diagnosis Dysphagia, unspecified(787.20) Dysphagia, unspecified documented in this encounter Care Teams Internal Medicine Hospitalist Relationship Specialty Start Date End Date Linda Pepe MD [address] [place] [id number] PCP - General Family Practice 03/02/18 documented as of this encounter
--- OUTSIDE RECORDS SUMMARY | 2025-04-29 15:08 | XMS_ITS | Clinical Summary ---
Author Organization [facility] Address [address] [place] [address] Phone Care Team Providers Care Fine Arts Model Name Role Phone Linda Pepe MD Primary Care Provider [phone] Allergies No known active allergies Medications omeprazole [...] on file Legal Sex Female 5:24 AM VICTORIAN LITERATURE PROFESSOR Gender Identity Not on file Sexual [...] 1-dose 75+ series) 2026 Insurance MEDICARE RAILROAD [facility] Member Subscriber Plan / Payer (Ef fective 2021-Present) Name:Sheree Cheng Relation to Subscriber:Spouse Name:Brice Cheng Date of :1968 (Home) (Work) Address: [address] [place] [id number] Payer ID:Not on file Group ID:[id number] Type:Practitioner Only Address: [address] [place] [address] Advance Directives For more information, please contact: [phone] * Full Code (Latest Code Status on [...] 9:55 AM 07/13/2009 1:01 PM Care Teams Fine Arts Model Relationship Specialty Start Date End Date Linda Pepe MD [address] [place] [address] PCP - General Family Practice 03/02/18
--- OUTSIDE RECORDS SUMMARY | 2025-04-29 15:08 | XMS_ITS | Encounter Summary ---
Author Organization [facility] Address [address] [place] [address] Care Team Providers Care Galvanizing Pot Runner Name Role Phone Linda Pepe MD Primary Care Provider [phone] Encounter Details Date Type Department Care Team (Late st Contact Info) Description 01/14/2000 Outpatient Historical [facility] MRI DEPT Conversion, History Mastodynia (Primary Dx) Social History Tobacco Use Types Packs/Day Years Used Date Smoking Tobacco: Never Assessed Comments Unknown Sex and Gender Information Value Date Recorded Sex Assigned at Not on file Legal Sex Female 5:24 AM ECOMMERCE PROJECT MANAGER Gender Identity Not on file Sexual Orientation Not on file documented as of this encounter Plan of Treatment Not on file documented as of this encounter Visit Diagnoses Diagnosis Mastodynia- Primary documented in this encounter Care Teams Galvanizing Pot Runner Relationship Specialty Start Date End Date Linda Pepe MD [address] [place] [id number] PCP - General Family Practice 03/02/18 documented as of this encounter
--- OUTSIDE RECORDS SUMMARY | 2025-04-29 15:08 | XMS_ITS | Clinical Summary ---
Author Organization [place] [id number] Address [address] [place] [address] Care Team Providers Care Ready Mix Truck Driver Name Role Phone Linda Pepe MD Primary Care Provider [phone] Jensen Bajwa MD Unavailable Allergies Active Allergy [...] (12/23/2021): Added automatically from request for surgery [id number] Right elbow pain 01/24/2021 Lateral epicondylitis 12/19/2020 [...] on file Legal Sex Female 2:14 AM FINISHING AREA SUPERVISOR Gender Identity Not on file Sexual Orientation [...] history exists Medical Devices Implanted Type Area Carbon Lamp Cleaner Device Identifier Shelf Expiration Date Model / Serial / Lot Breast Breast Bilateral: Chest Procedures Procedure Name Priority Date/Time Associated Diagnosis Comments SCREENING MAMMOGRAM BILATERAL W POLLO W IMPLANTS Schedule Routine, Read Routine (OP Routine) 10/06/2018 11:33 AM FINISHING AREA SUPERVISOR Encounter for screening mammogram for malignant neoplasm of breast from Last 3 Months or Most Recently Relevant to Health Maintenance Results * Screening Mammogram Bilateral w Pollo w Implants (10/06/2018 11:33 AM FINISHING AREA SUPERVISOR) Anatomical Region Laterality Modality Breast Bilateral Digital Radiogra phy Narrative 10/08/2018 8:50 AM FINISHING AREA SUPERVISOR Mammogram Technique: Bilateral Digital Breast Tomosynthesis, Bilateral C-view 2D Screening mammogram. Views obtained: bilateral craniocaudal; bilateral craniocaudal implant displaced; bilateral mediolateral oblique; and bilateral mediolateral oblique implant displaced. Computer Aided Detection was performed. Mammogram Findings: The present examination has been compared to a prior imaging study performed at [facility] on 08/24/2017. There are scattered areas of [...] a prior imaging study performed at [facility] on 08/24/2017. There are scattered areas of fibroglandular density. There is no suspicious abnormality in either breast. Impression: Annual screening mammography is recommended. OVERALL FINAL ASSESSMENT: BI-RADS CATEGORY 1: Negative. Linda Pepe MD IMG MAMMO PROCEDURES Final Resu lt from Last 3 Months or Most Recently Relevant to Health Maintenance Insurance [facility] MEDICARE ADVANTAGE [facility] MEDICARE RAILROAD [facility] MEDICARE ADVANTAGE Advance Directives For more information, please contact: [phone] * Full Code (Latest Code Status on File) Date Activated Date Inactivated Comments 01/21/2023 7:52 AM 01/21/2023 2:28 PM * Full Code Date Activated Date Inactivated Comments 01/21/2023 7:52 AM 01/21/2023 7:52 AM Care Teams Ready Mix Truck Driver Relationship Specialty Start Date End Date Linda Pepe MD PCP - General Family Medicine 04/13/19 Jensen Bajwa MD [address] [facility] [address] [address] Consulting Physician Orthopedic Surgery 12/31/21
--- OUTSIDE RECORDS SUMMARY | 2025-04-29 15:08 | XMS_ITS | Encounter Summary ---
Author Organization [facility] Address [address] [place] [address] Care Team Providers Care Lead Manufacturing Engineering Tech Name Role Phone Linda Pepe MD Primary Care Provider [phone] Encounter Details Date Type Department Care Team (Late st Contact Info) Description 04/03/2021 Lab Requisition [facility] [address] [facility] [place] [address] Denys Delcid Jr., MD [address] [facility] [address] [place] [address] Social History Tobacco Use Types Packs/Day Years [...] AM CDT) Case Report Dermatopathology Report Case: [id number] Authorizing Provider: Denys Delcid Jr., MD Collected: 04/02/2021 12:00 AM Ordering Location: [facility] Received: 04/03/2021 12:35 [...] vs squamous cell carcinoma. . 1:23 PM [facility] Gross Description Specimen A: Received is one formalin filled container labeled with the patient's name and designated right inferior upper back. The specimen consists of a shave biopsy measuring [id number]. Jar 0. Specimen B: Received is one formalin filled container labeled with the patient's name and designated left superior lateral midback. The specimen consists of a shave biopsy measuring 8o8n0ai. Jar 0. Specimen C: Received is one formalin filled container labeled with the patient's name and designated left lateral breast 3-4:00 region. The specimen consists of a shave biopsy measuring 1n7g7jw. Jar 0. Specimen D: Received is one formalin filled container labeled with the patient's name and designated right lateral breast 9-10:00 region. The specimen consists of a shave biopsy measuring 4y5i4sj. Jar 0. Specimen E: Received is one formalin filled container labeled with the patient's name and designated right superior flank. The specimen consists of a shave biopsy measuring 0g4o4di. Jar 0. 1:23 PM [facility] Microscopic Description Specimen A. SKIN, [...] characteristic determined by the Dermatopathology Laboratory at [facility], directed by Dr. Nima Maria. These tests need not be, and therefore are not, approved by the [place] Food and Drug Administration. The tests are used for clinical purposes. Billing Codes Specimen Charges Stain Charges 74598 84149 92725 71537 86793 1 1 1 1 1 1 1:23 [...] PATHOLOGY/CYTOLOG Y ORDERABLES Final Result DERMATOPATHOLOGY LABORATORY [facility] - Department of Dermatology [address] [phone] documented in this encounter Visit Diagnoses Not on filedocumented in this encounter Care Teams Lead Manufacturing Engineering Tech Relationship Specialty Start Date End Date Linda Pepe MD [address] [place] [address] PCP - General 05/10/18 documented as of this encounter
--- OUTSIDE RECORDS SUMMARY | 2025-04-29 15:08 | XMS_ITS | Encounter Summary ---
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 Role Phone Linda Pepe MD Primary Care Provider [phone] Encounter Details Date Type Department Care Team (Late st Contact Info) Description 11/15/2019 Lab Requisition [facility] [address] [place] [address] [place] [address] [place] [address] Social History Tobacco Use Types Packs/Day Years [...] Comments DERMATOPATHOLOGY Routine 11/15/2019 12:0 0 AM JOB PRINTER documented in this encounter Results * DERMATOPATHOLOGY (11/15/2019 12:00 AM JOB PRINTER) Case Report Dermatopathology Report Case: [id number] Authorizing Provider: Zunilda Trevino MD Collected: 11/15/2019 12:00 AM Ordering Location: [facility] Received: 11/15/2019 12:14 PM Pathologist: Melani Brown MD Specimens: A) - Skin, left suprapubic skin B) - Skin, left anterior lateral distal thigh C) - Skin, left rib cage 0 3:05 PM JOB PRINTER DERMATOPATHOLOGY LABORATORY Final Diagnosis Specimen A. SKIN, left suprapubic skin: SEBORRHEIC KERATOSIS, MACULAR (L82.1) Specimen B. 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 SKIN, left rib cage: BENIGN VERRUCOUS KERATOSIS, INFLAMED (L82.1) 0 3:05 PM [facility] DERMATOPATH[facility] at [address] JOB PRINTER Clinical History A: Flat seborrheic keratosis vs R/O melanoma. B: Inflamed seborrheic keratosis vs squamous cell carcinoma vs actinic keratosis. C: Inflamed seborrheic keratosis. . 0 3:05 PM [facility] Gross Description Specimen A: Received is one formalin filled container labeled with the patient's name and designated left suprapubic skin. The specimen consists of a shave biopsy measuring 25w16t0rn. Jar 0. Specimen B: Received is one formalin filled container labeled with the patient's name and designated left anterior lateral distal thigh. The specimen consists of a shave biopsy measuring 4p3e7qi. Jar 0. Specimen C: Received is one formalin filled container labeled with the patient's name and designated left rib cage. The specimen consists of a shave biopsy measuring 8j1m4gk. Jar 0. 0 3:05 PM [facility] Microscopic Description Specimen A. [...] or a seborrheic keratosis. 0 3:05 PM JOB PRINTER DERMATOPATHOLOGY LABORATORY Disclaimer An external and internal positive and negative controls are appropriate for the histochemical, immunohistochemical and immunofluorescence stain(s) in this case (if any), except where stated explicitly. The performance characteristics of the stain(s) cited in this report were developed and its performance characteristic determined by the Dermatopathology Laboratory at [facility], directed by Dr. Nima Maria. These tests need not be, and therefore are not, approved by the [place] Food and Drug Administration. The tests are used for clinical purposes. Billing Codes Specimen Charges Stain Charges 61538 01092 20265 1 1 1 82059 1 0 3:05 PM JOB PRINTER DERMATOPATHOLOGY LABORATORY Embedded Images 0 3:05 PM JOB PRINTER DERMATOPATHOLOGY LABORATORY Pathology/Cytology TISSUE SPECIMEN FROM SKIN / Unknown 11/15/2019 11/15/2019 12:14 PM JOB PRINTER Miscellaneous samples (specimen) TISSUE SPECIMEN FROM SKIN / Unknown 11/15/2019 11/15/2019 12:14 PM JOB PRINTER Miscellaneous samples (specimen) TISSUE SPECIMEN FROM SKIN / Unknown 11/15/2019 11/15/2019 12:14 PM JOB PRINTER Zunilda Trevino MD LAB - PATHOLOGY/CYTOLOGY ORDERABLES Final Result DERMATOPATHOLOGY LABORATORY [facility] - Department of Dermatology [address] [facility] [address] [place] [address], [facility] [phone] documented in this encounter Visit Diagnoses Not on filedocumented in this encounter 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
--- NOTE | 2025-04-29 15:35 | ED.GENADULT ---
HPI - General Adult General Chief complaint: Recheck/Abnormal Lab/Rx Stated complaint: HTN Time Seen by Provider: 04/29/25 15:00 History of Present Illness HPI narrative: 74-year-old female present to the emergency department for evaluation for sinus pressure, headache, hypertension. Patient states she had a upper respiratory infection for the past few weeks and patient was recently started on antibiotics and steroids just a few days ago. Patient also states she has had increased blood pressure this week. Patient has no prior history of coronary artery disease. Patient does not history of high blood pressure. Patient does describe some chest tightness. Related Data Home Medications ?Medication ?Instructions ?Recorded ?Confirmed ?Last Taken ?Type aspirin 81 mg tablet,delayed 81 mg PO DAILY 07/16/22 04/27/25 06/07/24 History release ubidecarenone-omega 3-vit E 25 1 cap PO DAILY 07/16/22 04/27/25 Unknown History mg-150 (90-60) mg-200 unit capsule (Co [id number] E-Fish Oil) celecoxib 100 mg capsule 100 mg PO BID 05/27/24 04/27/25 06/07/24 History cyclobenzaprine 10 mg tablet 10 mg PO TID 05/27/24 04/27/25 Unknown History famotidine 40 mg tablet 40 mg PO HS 05/27/24 04/27/25 Unknown History multivitamin (Daily Multi-Vitamin 1 tablet PO DAILY 05/27/24 04/27/25 06/11/24 History tablet) Allergies Allergy/AdvReac Type Severity Reaction Status Date / Time No Known Allergies Allergy Verified 04/29/25 13:59 Review of Systems Review of Systems: All systems reviewed & are unremarkable except as noted in HPI and below PMFSH Past Medical History Medical History Encounter for immunization Hemorrhoids, internal Irritable bowel syndrome with constipation Insomnia Mixed hyperlipidemia Cataract Colonic polyp Anxiety Surgical History Surgical History H/O elbow surgery History of esophagogastroduodenoscopy esophageal erosion Hx of breast implants, bilateral History of partial hysterectomy Hx of cholecystectomy H/O shoulder surgery Family History Family History Unknown Metastatic cancer Diabetes mellitus Heart failure Mother Family history of diabetes mellitus in first degree relative Sibling Breast cancer Sibling COPD (chronic obstructive pulmonary disease) Heart failure Other Family history of cardiovascular disease Hypertension Social History Social History Smoking packs per day: 1 Smoking cigarettes per day: 20.0 Years smoked: 25 Smoking pack-years: 25.00 Smoking status: Former smoker Tobacco type: cigarettes Second hand tobacco smoke exposure: No Smoking end date: 09/21/02 Additional smoking assessment comments: She quit 20 years ago. Alcohol intake: current Drinks per week: 1 Alcohol use details: occasionally Substance use: never Substance use type: does not use Lack of Transportation: No Lack of Food: Never True Current Housing: I Have Housing Concerned About Future Housing: No Difficulty Paying Gas/Electric Bills: No Difficulty Paying for Meds: No Currently Unemployed: No Education: High School Diploma/GED Difficulty w/ Childcare or Family Care: No Living arrangements: with family Occupation/Education: retired Gender identity (if verbalized by the patient): Female Sexual Orientation (if Verbalized by the Patient): Straight or Heterosexual Spiritual care concerns: No Agree to blood products: Yes Exam Narrative: APPEARANCE: Well appearing, no pain, no distress, well-nourished. HEAD: normocephalic, atraumatic. EYES: PERRLA/EOMI, conjunctivae clear. NOSE: Normal no drainage EARS:TMS clear with good light reflex. THROAT: Pharynx clear, no exudate. NECK: Supple. No adenopathy, no masses. RESPIRATORY: Increased work of breathing CARDIOVASCULAR: Regular rate and rhythm without murmurs rubs or gallops. ABDOMINAL: Soft, nontender, nondistended, normal bowel sounds MUSCULOSKELETAL: Moves all extremities. Strength/ROM intact, No edema, No calf tenderness. NEURO: Alert. Cranial nerves II through XII intact. Good gait. Good coordination SKIN: Warm, dry. Normal Color Course Vital Signs Vital signs: Vital Signs Temperature 97.4 F L 04/29/25 13:56 Pulse Rate 71 04/29/25 13:56 Respiratory Rate 20 04/29/25 13:56 Blood Pressure 161/92 H 04/29/25 13:56 Pulse Oximetry 99 04/29/25 13:56 Oxygen Delivery Room Air 04/29/25 13:56 Temperature 97.4 F L 04/29/25 13:56 Pulse Rate 63 04/29/25 18:43 Respiratory Rate 15 04/29/25 18:43 Blood Pressure 198/75 H 04/29/25 18:43 Pulse Oximetry 98 04/29/25 18:43 Oxygen Delivery Room Air 04/29/25 15:50 Medical Decision Making MDM Narrative Medical decision making narrative: 74-year-old female per the emergency department for evaluation for shortness of breath over the past 2 weeks, elevated blood pressure for the last 1 week, and patient has been on antibiotics for approximately 24 hours. Patient was hypoxic in the emergency department when ambulating she drop down to 86% on room air with a good plateau. Patient is afebrile but does have a minor leukocytosis at 10.1 hemoglobin of 10.5. INR is 1.0. No acute abnormalities on the patient's CMP. Patient's troponin was negative patient did have elevated proBNP of 17 60, patient has no lower extremity edema. UA was negative for infection. CTA chest was ordered to evaluate for pulmonary embolism and this did show possible pneumonia and some interstitial edema. Blood cultures were ordered patient was started on azithromycin and Rocephin. Patient was also treated with a dose Lasix emergency department. Case was discussed with hospitalist patient was accepted for admission. Patient family are comfortable the plan for admission and further evaluation. All questions concerns were addressed. Differential Diagnosis Differential Diagnosis: Pneumonia, ACS, pulmonary embolism, CHF Vital Signs Vital Signs: Vital Signs Temperature 97.4 F L 04/29/25 13:56 Pulse Rate 71 04/29/25 13:56 Respiratory Rate 20 04/29/25 13:56 Blood Pressure 161/92 H 04/29/25 13:56 Pulse Oximetry 99 04/29/25 13:56 Oxygen Delivery Room Air 04/29/25 13:56 Temperature 97.4 F L 04/29/25 13:56 Pulse Rate 63 04/29/25 18:43 Respiratory Rate 15 04/29/25 18:43 Blood Pressure 198/75 H 04/29/25 18:43 Pulse Oximetry 98 04/29/25 18:43 Oxygen Delivery Room Air 04/29/25 15:50 Lab Data Lab results reviewed: Yes I reviewed the patient's lab results. 04/29/25 15:56 04/29/25 15:56 Labs: Lab Results 04/29/25 04/29/25 04/29/25 Range/Units 15:55 15:56 18:01 WBC 10.1 H (4.5-10.0) K/mm3 RBC 3.56 L (4.2-5.4) M/mm3 Hgb 10.5 L (12.0-15.0) g/dL Hct 31.8 L (37.0-47.0) % MCV 89.3 (80-100) fl MCH 29.5 (26-34) pg MCHC 33.0 (32-36) g/dl RDW 15.6 H (11.5-14.5) % Plt Count 279 (150-375) k/mm3 MPV 9.9 (7.4-10.4) fl Immature Gran % (Auto) 0.6 H (0-0.5) % Neut % (Auto) 81.7 H (45.5-73.1) % Lymph % (Auto) 13.8 L (18.3-44.2) % [place] % (Auto) 3.7 (2.6-8.5) % Eos % (Auto) 0.0 (0-4.4) % Baso % (Auto) 0.2 (0.2-1.2) % Lymph # (Auto) 1.39 (0.9-3.2) K/mm3 [place] # (Auto) 0.4 (0.1-0.6) K/mm3 Eos # (Auto) 0.0 (0-0.3) K/mm3 Baso # (Auto) 0.0 (0.0-0.1) K/mm3 Abs Immat Gran (auto) 0.06 H (0.00-0.031) K/mm3 Absolute Neuts (auto) 8.3 H (1.3-6.7) K/mm3 Absolute Nucleated RBC 0.000 (0.0-0.012) K/mm3 Nucleated RBC % 0.0 (0.0-0.2) % PT 13.5 (11.1-14.7) Seconds INR 1.0 APTT 28.6 (22.3-36.8) Seconds Sodium 136 L (137-145) mmol/L Potassium 3.7 (3.4-5.0) mmol/L Chloride 103 (98-107) mmol/L Carbon Dioxide 25 (22-30) mmol/L Anion Gap 8 (4-12) mmol/L BUN 11 (7-17) mg/dL Creatinine 0.54 L (0.7-1.0) mg/dL Estim Creat Clear Calc 87 ml/min Estimated GFR > 60 (59 - ) Glucose 131 H (65-110) mg/dL Lactic Acid 1.1 (0.7-2.0) mmol/L Calcium 9.0 (8.4-10.2) mg/dL Total Bilirubin 0.7 (0.2-1.3) mg/dL AST 62 H (14-36) U/L ALT 69 H (6-35) U/L Alkaline Phosphatase 45 (38-126) U/L Troponin I < 0.012 (0.000-0.034) ng/mL NT-Pro-B Natriuret Pep 1760 H (19.9-100) pg/mL Total Protein 7.1 (6.3-8.2) g/dL Albumin 4.3 (3.5-5.1) g/dL Urine Color Yellow (Yellow) Urine Appearance Clear (Clear) Urine pH 7.5 (5.0-9.0) Ur Specific [place] 1.007 (1.001-1.035) Urine Protein Negative (Negative) mg/dL Urine Glucose (UA) Negative (Negative) mg/dL Urine Ketones Negative (Negative) mg/dL Ur Blood (Man) Negative (Negative) Urine Nitrate Negative (Negative) Urine Bilirubin Negative (Negative) Urine Urobilinogen 0.2 (<2.0) mg/dL Add Ur Microanalysis Reviewed Leukocyte Esterase Rfl Trace H (Negative) HARRIET/UL Urine RBC 0-2 (0-2) /hpf Urine WBC 0-5 (0-3) /hpf Ur Squamous Epith Cells None seen (Few) /hpf Urine Bacteria None seen /hpf Urine Casts 0-2 Imaging Data Radiologist's impression: Impressions Head CT 04/29/25 15:26 IMPRESSION: No acute intracranial process. Right maxillary sinus findings may represent acute sinusitis in the appropriate clinical context. Chest CTA 04/29/25 17:04 IMPRESSION: No CT evidence of acute pulmonary embolus. Small foci of tree-in-bud opacities in the lingula and right middle lobe, may represent atypical infection or aspiration. Mild interstitial edema. Trace bilateral pleural effusions with pleural thickening. Mediastinal lymphadenopathy. Discharge Plan Discharge Clinical Impression: Pulmonary edema, Pneumonia, Hypoxic Patient Disposition: Still a Patient Condition: Stable
--- NOTE | 2025-04-29 15:36 | ECG_ITS ---
Test Date: 2025-04-29 15:41:31 Measurements Intervals [place] Rate: 66 P: -58 TN: 135 QRS: 31 QRSD: 89 T: 12 QT: 410 QTc: 430 Interpretive Statements SINUS RHYTHM VOLTAGE CRITERIA FOR LVH BASELINE ARTIFACT- I, II, III, AVR, V3 BORDERLINE ECG Compared to ECG 06/03/2024 10:51:59 NO SIGNIFICANT CHANGE Electronically Signed On 04-29-2025 20:32:12 CDT by Jh Davis D.O.
--- NOTE | 2025-04-29 16:03 | PC.NURSE ---
Pt. walked to bathroom and returned to bed. Upon returning, pt. breathing labored. Pt. having a tough time catching her breath. Oxygen 86% with a good pleth on RA. Pt. sat down and recovered without additional interventions. At rest, breathing non-labored and 96% on RA. Dr. Lima notified of events.
[2025-04-29 16:05] LABS: Hematocrit 31.8 % (37.0-47.0); Hemoglobin 10.5 g/dL (12.0-15.0); Immature Granulocyte Percent A 0.6 % (0-0.5); Lymphocytes Absolute Auto 1.39 K/mm3 (0.9-3.2); Mean Corpuscular HGB Conc 33.0 g/dl (32-36); Mean Corpuscular Hemoglobin 29.5 pg (26-34); Mean Corpuscular Volume 89.3 fl (80-100); Nucleated Red Blood Cells Absolute Auto 0.000 K/mm3 (0.0-0.012); Nucleated Red Blood Cells Perc 0.0 % (0.0-0.2); Platelet Count Result 279 k/mm3 (150-375); Red Blood Count 3.56 M/mm3 (4.2-5.4); White Blood Count 10.1 K/mm3 (4.5-10.0)
[2025-04-29 16:15] LABS: Add Urine Microscopic? YES; Appearance Urine Clear (Clear); Glucose Urine UA Negative (Negative); Leukocyte Esterase Ur Trace LEU/UL (Negative); Need Manual Microscopic Reviewed; Nitrate Urine Negative (Negative); Non Pathogenic Casts 0-2; Specific Grav Ur 1.007 (1.001-1.035)
[2025-04-29] MEDS: MORPHINE SULFATE (*CRX) 2 MG/ML INJ IV PUSH ×2 (16:16→18:37)
[2025-04-29 16:18] LABS: Alanine Aminotransferase 69 U/L (6-35); Albumin Level 4.3 g/dL (3.5-5.1); Alkaline Phosphatase 45 U/L (38-126); Anion Gap 8 mmol/L (4-12); Aspartate Amino Transferase 62 U/L (14-36); Bilirubin,Total 0.7 mg/dL (0.2-1.3); Blood Urea Nitrogen 11 mg/dL (7-17); Calcium 9.0 mg/dL (8.4-10.2); Carbon Dioxide 25 mmol/L (22-30); Chloride 103 mmol/L (98-107); Estimated CRCL calculation 87 ml/min; Estimated Glomerular Filt Rate > 60; Glucose 131 mg/dL (65-110); Potassium 3.7 mmol/L (3.4-5.0); Sodium 136 mmol/L (137-145); Total Protein 7.1 g/dL (6.3-8.2)
[2025-04-29 16:20] LABS: INR 1.0; Prothrombin Time 13.5 Seconds (11.1-14.7)
[2025-04-29 16:21] LABS: Partial Thromboplastin Time 28.6 Seconds (22.3-36.8)
[2025-04-29 16:30] LABS: Troponin I < 0.012 ng/mL (0.000-0.034)
[2025-04-29 17:58] LABS: NT Pro B Type Natriuretic Pept 1760 pg/mL (19.9-100)
[2025-04-29] MEDS: FUROSEMIDE INJ 40 MG/4 ML VIAL IV PUSH (18:35)
[2025-04-29] MEDS: cefTRIAXone 1 GM in SODIUM CHLORIDE 0.9% IV 50 ML 100 ML IVPB (18:36)
--- NOTE | 2025-04-29 19:32 | ADMGEN ---
This patient, Sheree Cheng, was admitted to 2 Medical Room 254-01. Patient/family oriented to hospital policies and general routines including ID bracelet, bed and alarms, visiting hours, pain management, procedures, bathroom and other care routines, personal items, smoking policy, room service/diet, and visiting hours. Information on how to activate the Rapid Response Team has been discussed. Patient/Family are encouraged to report perceived risks to care and to ask questions if they do not understand what they are told or what they should do.
[2025-04-29] MEDS: AZITHROMYCIN IV 500 MG in SODIUM CHLORIDE 0.9% IV 250 ML IVPB (19:51)
--- NOTE | 2025-04-29 20:17 | ECG_ITS ---
Test Date: 2025-04-29 21:31:11 Measurements Intervals [place] Rate: 75 P: 33 OK: 161 QRS: 40 QRSD: 97 T: 13 QT: 409 QTc: 458 Interpretive Statements SINUS RHYTHM LEFT VENTRICULAR HYPERTROPHY WITH ST-T CHANGE BASELINE ARTIFACT- I, II, III, AVR, AVL, AVF BORDERLINE ECG Compared to ECG 04/29/2025 15:41:31 NO SIGNIFICANT CHANGE Electronically Signed On 04-30-2025 07:59:01 CDT by Jh Davis D.O.
--- NOTE | 2025-04-29 20:29 | PM.IMHP ---
H&P: HPI History of Present Illness Date/Time: 04/29/25 20:29 Chief Complaint: Chest pressure Narrative: A 74-year-old female with a past medical history of cholecystectomy, anxiety, rotator cuff repair, and removal of a nodule in her throat 10 years ago ,visited the ER due to shortness of breath and chest pressure. Patient reports lately she has had shortness of breath and chest pressure for the past week and visited the PCP, who was given cefdinir and prednisone on (0 8/0 7). According to the Patient, she has never undergone imaging studies. The PCP requested that she return to the clinic/perform imaging if she does not improve. Pertinent ED labs: WBC 10.1, hemoglobin 10.5, hematocrit 31.8, platelets 279, sodium 136, potassium 3.7, creatinine 0.5, GFR greater than 60, AST 62, ALT 69 BNP 1760 Troponin negative COVID, RSV, and flu pending Chest CTA shows no CT evidence of acute pulmonary embolus. Small foci of tree-in-bud opacities in the lingula and right middle lobe may represent atypical infection or aspiration. Mild interstitial edema. Trace bilateral pleural effusions with pleural thickening. Mediastinal lymphadenopathy. The Patient was admitted in the setting of PNA ,chest pain ,and high blood pressure. Patient was given Lasix 40 mg IV 1 time in ED. The Patient was also given hydralazine 10 mg IV in the ED for hypertension. The Patient will be started on ceftriaxone and azithromycin for possible pneumonia. Patient is a previous smoker and quit 25 years ago. The Patient may have underlying COPD. Patient will be started on hydralazine 10 mg IV q.6 hours p.r.n. for hypertension. Will trend troponin and repeat EKG for any possible ischemic changes. Labs will be repeated along with BNP tomorrow a.m.. An echocardiogram will be performed in the morning. Cardiology is consulted . Patient has no prior history of hypertension. The Patient also has a history of anxiety. Review of Systems Review of Systems: All systems reviewed & are unremarkable except as noted in HPI and below PMFSH Past Medical History Medical History Encounter for immunization Hemorrhoids, internal Irritable bowel syndrome with constipation Insomnia Mixed hyperlipidemia Cataract Colonic polyp Anxiety Surgical History Surgical History H/O elbow surgery History of esophagogastroduodenoscopy esophageal erosion Hx of breast implants, bilateral History of partial hysterectomy Hx of cholecystectomy H/O shoulder surgery Family History Family History Unknown Metastatic cancer Diabetes mellitus Heart failure Mother Family history of diabetes mellitus in first degree relative Sibling Breast cancer Sibling COPD (chronic obstructive pulmonary disease) Heart failure Other Family history of cardiovascular disease Hypertension Social History Social History Smoking packs per day: 1 Smoking cigarettes per day: 20.0 Years smoked: 25 Smoking pack-years: 25.00 Smoking status: Former smoker Tobacco type: cigarettes Second hand tobacco smoke exposure: No Smoking end date: 09/21/99 Additional smoking assessment comments: She quit 20 years ago. Alcohol intake: current Drinks per week: 1 Alcohol use details: occasionally Substance use: never Substance use type: does not use Lack of Transportation: No Lack of Food: Never True Current Housing: I Have Housing Concerned About Future Housing: No Difficulty Paying Gas/Electric Bills: No Difficulty Paying for Meds: No Currently Unemployed: No Education: High School Diploma/GED Difficulty w/ Childcare or Family Care: No Living arrangements: with family Occupation/Education: retired Gender identity (if verbalized by the patient): Female Sexual Orientation (if Verbalized by the Patient): Straight or Heterosexual Spiritual care concerns: No Agree to blood products: Yes Meds Home Medications and Allergies Home Medications ?Medication ?Instructions ?Recorded ?Confirmed ?Type aspirin 81 mg tablet,delayed 81 mg PO DAILY 07/16/22 04/29/25 History release ubidecarenone-omega 3-vit E 25 1 cap PO DAILY 07/16/22 04/29/25 History mg-150 (90-60) mg-200 unit capsule (Co I-81-[place]ruby[place] E-Fish Oil) celecoxib 100 mg capsule 100 mg PO BID 05/27/24 04/29/25 History multivitamin (Daily Multi-Vitamin 1 tablet PO DAILY 05/27/24 04/29/25 History tablet) lorazepam 1 mg tablet 1 mg PO DAILY PRN anxiety #30 tabs 06/20/24 04/29/25 Rx sertraline 50 mg tablet 50 mg PO DAILY #90 tabs 11/15/24 04/29/25 Rx trazodone 100 mg tablet 200 mg (2 x 100 mg) PO QHS #180 04/03/25 04/29/25 Rx tabs omeprazole 40 mg capsule,delayed 40 mg PO BID #180 caps 04/25/25 04/29/25 Rx release albuterol sulfate 90 mcg/actuation 1 inh inhalation Q4H PRN shortness 04/27/25 04/29/25 Rx aerosol inhaler (Ventolin HFA) of breath or wheezing #8.5 grams prednisone 10 mg tablet See Rx Instructions .Route 04/27/25 04/29/25 Rx .COMPLEX 10 days #30 tabs Allergies Allergy/AdvReac Type Severity Reaction Status Date / Time No Known Allergies Allergy Verified 04/29/25 13:59 Vital Signs Vital Signs - 24 hr 04/29/25 13:56 04/29/25 15:50 04/29/25 17:07 Temperature 97.4 F L Pulse Rate 71 71 64 Respiratory Rate 20 22 H 20 Blood Pressure 161/92 H 189/86 H 175/79 H Pulse Oximetry 99 94 97 Oxygen Delivery Room Air Room Air 04/29/25 17:59 04/29/25 18:43 04/29/25 20:19 Temperature 97.6 F Pulse Rate 65 63 72 Respiratory Rate 20 15 16 Blood Pressure 155/77 H 198/75 H 164/77 H Pulse Oximetry 97 98 97 Oxygen Delivery Exam Narrative: APPEARANCE: Well appearing, no pain, no distress, well-nourished. HEAD: normocephalic, atraumatic. EYES: PERRLA/EOMI, conjunctivae clear. NOSE: Normal no drainage EARS:TMS clear with good light reflex. THROAT: Pharynx clear, no exudate. NECK: Supple. No adenopathy, no masses. RESPIRATORY: Increased work of breathing CARDIOVASCULAR: Regular rate and rhythm without murmurs rubs or gallops. ABDOMINAL: Soft, nontender, nondistended, normal bowel sounds MUSCULOSKELETAL: Moves all extremities. Strength/ROM intact, No edema, No calf tenderness. NEURO: Alert. Cranial nerves II through XII intact. Good gait. Good coordination SKIN: Warm, dry. Normal Color H&P: Results Labs Labs: Short CBC 04/29/25 Range/Units 15:56 WBC 10.1 H (4.5-10.0) K/mm3 Hgb 10.5 L (12.0-15.0) g/dL Hct 31.8 L (37.0-47.0) % Plt Count 279 (150-375) k/mm3 BMP 04/29/25 15:56 Sodium 136 L Potassium 3.7 Chloride 103 Carbon Dioxide 25 BUN 11 Creatinine 0.54 L Glucose 131 H Calcium 9.0 Cardiac Enzymes 04/29/25 Range/Units 15:56 Troponin I < 0.012 (0.000-0.034) ng/mL Liver Function 04/29/25 Range/Units 15:56 Total Bilirubin 0.7 (0.2-1.3) mg/dL AST 62 H (14-36) U/L ALT 69 H (6-35) U/L Alkaline Phosphatase 45 (38-126) U/L Albumin 4.3 (3.5-5.1) g/dL Urine 04/29/25 Range/Units 15:56 Urine Color Yellow (Yellow) Urine Appearance Clear (Clear) Urine pH 7.5 (5.0-9.0) Ur Specific [place] 1.007 (1.001-1.035) Urine Protein Negative (Negative) mg/dL Urine Glucose (UA) Negative (Negative) mg/dL Assessment and Plan Assessment and plan (1) Pneumonia: Code(s): J18.9 - Pneumonia, unspecified organism Status: Acute Assessment and Plan: Reviewed chest CTA Quad screen pending Started on DuoNeb Possible BRITTNY Order ApneaLink for tomorrow Started on ceftriaxone and doxycycline Monitor vitals Monitor culture Nasal MRSA pending (2) Chest pain: Code(s): R07.9 - Chest pain, unspecified Status: Acute Assessment and Plan: Reviewed EKG Troponin negative Trend troponin Possible unstable angina Echocardiogram a.m. Given Lasix 40 mg IV x 1 in the ED Elevated BNP Cardiology consulted (3) HTN (hypertension): Code(s): I10 - Essential (primary) hypertension Status: Acute Assessment and Plan: Hydralazine 10 mg IV q.6 hours p.r.n. (4) Insomnia: Qualifiers: Insomnia type: unspecified Qualified Code(s): G47.00 - Insomnia, unspecified Code(s): G47.00 - Insomnia, unspecified Status: Acute Assessment and Plan: Continue trazodone Given melatonin 3 mg x 1 Plan DVT prophylaxis Lovenox 40 mg subQ daily Code status: Full code Hospitalist MIPS Advance Care Plan I have confirmed that the patient's Advanced Care Plan is present, code status is documented, or surrogate decision maker is listed in patient medical record.: Yes Medication Reconciliation I have utilized all available resources to obtain, update and review the patients current medications (includes all prescriptions, OTC, herbals, cannabis, and nutritional supplements).: Yes
[2025-04-29 21:39] LABS: Influenza A QL RT-PCR Negative (Negative); Influenza B QL RT-PCR Negative (Negative); RSV RNA, RT-PCR Negative (Negative); SARS-CoV-2 RNA PCR Negative (Negative)
[2025-04-29] MEDS: MELATONIN 3 MG TABLET PO (22:00)
[2025-04-29] MEDS: PANTOPRAZOLE 40 MG TABLET PO (22:00)
[2025-04-29 22:29] LABS: Troponin I < 0.012 ng/mL (0.000-0.034)
[2025-04-30] VITALS (17 sets, daily range): BP systolic 132–143; BP diastolic 77–88; PULSE 62–91; RESP 16–20; TEMP 36.4–36.8; O2SAT 93–98
[2025-04-30] MEDS: IPRATROPIUM 0.5 MG/ALBUTEROL SULFATE 2.5 MG AMPUL.NEB 3 ML INHALATION ×4 (02:45→21:09)
[2025-04-30] MEDS: LORazepam (*CRX) 1 MG TABLET PO ×2 (03:00→15:04)
[2025-04-30 05:20] LABS: Hematocrit 32.1 % (37.0-47.0); Hemoglobin 10.4 g/dL (12.0-15.0); Mean Corpuscular HGB Conc 32.4 g/dl (32-36); Mean Corpuscular Hemoglobin 29.0 pg (26-34); Mean Corpuscular Volume 89.4 fl (80-100); Platelet Count Result 267 k/mm3 (150-375); Red Blood Count 3.59 M/mm3 (4.2-5.4); White Blood Count 11.4 K/mm3 (4.5-10.0)
[2025-04-30 05:49] LABS: Alanine Aminotransferase 62 U/L (6-35); Albumin Level 4.0 g/dL (3.5-5.1); Alkaline Phosphatase 45 U/L (38-126); Anion Gap 5 mmol/L (4-12); Aspartate Amino Transferase 41 U/L (14-36); Bilirubin,Total 0.6 mg/dL (0.2-1.3); Blood Urea Nitrogen 13 mg/dL (7-17); Calcium 9.1 mg/dL (8.4-10.2); Carbon Dioxide 30 mmol/L (22-30); Chloride 100 mmol/L (98-107); Estimated CRCL calculation 79 ml/min; Estimated Glomerular Filt Rate > 60; Glucose 98 mg/dL (65-110); Potassium 3.1 mmol/L (3.4-5.0); Sodium 135 mmol/L (137-145); Total Protein 6.6 g/dL (6.3-8.2)
[2025-04-30 05:59] LABS: NT Pro B Type Natriuretic Pept 1570 pg/mL (19.9-100)
[2025-04-30 07:56] LABS: MRSA (PCR) NOT DETECTED (NOT DETECTE)
--- NOTE | 2025-04-30 08:20 | P.PNIM_ITS ---
Progress Note: A&P Assessment and Plan (1) Pneumonia: Code(s): J18.9 - Pneumonia, unspecified organism Status: Acute Assessment and Plan: Patient reporting shortness of breaht and chest pressure for past week. Seen by PCP and was given cefdinir and prednisone on 04/27, without improvement. Chest CTA: No PE, Small foci of tree-in-bud opacities in the lingula and right middle lobe, may represent atypical infection or aspiration.Mild interstitial edema. Trace bilateral pleural effusions with pleural thickening. Mediastinal lymphadenopathy. - started on CAP tx: ceftriaxone and doxycycline on 04/30 - Viral PCR: negative for Flu/COVID/RSV - Consider ordering legionella, mycoplasma and pneumococcal - no supplemental O2 requirement - Mucinex, PEP therapy, IS - Duoneb - Patient noted to snore and wakes gasping, states related to drainage however per has been ongoing for a long time. Possible BRITTNY, plan for apnea link tonight - Monitor vital signs, I&Os, neuro status and patient is a fall risk - Follow WBC, serum electrolytes, temperature curves and cultures (2) Chest pain: Code(s): R07.9 - Chest pain, unspecified Status: Acute Assessment and Plan: Patient complaining of increased chest pressure further exacerbated with ambulat ion and notes associated shortness of breath. Possibly related to pneumonia however could be unstable angina Chest CTA: No PE, Small foci of tree-in-bud opacities in the lingula and right middle lobe, may represent atypical infection or aspiration.Mild interstitial edema. Trace bilateral pleural effusions with pleural thickening. Mediastinal lymphadenopathy. EKG sinus rhythm Troponin negative x2 Elevated BNP at 1570 Given Lasix 40 mg IV x 1 in the ED for interstitial edema and trace effusions Echocardiogram a.m. Cardiology consulted No longer endorsing chest pain/pressure on assessment. (3) HTN (hypertension): Code(s): I10 - Essential (primary) hypertension Status: Acute Assessment and Plan: Patient not on chronic antihypertensives BP elevated on admission Hydralazine 10 mg IV q.6 hours p.r.n. BP currently stable, continue to monitor (4) Insomnia: Qualifiers: Insomnia type: unspecified Qualified Code(s): G47.00 - Insomnia, unspecified Code(s): G47.00 - Insomnia, unspecified Status: Acute Assessment and Plan: Continue trazodone Time Spent With Patient Time with patient: 25 - 35 minutes Subjective Date/time seen: 04/30/25 08:20 Interval history: 74-year-old female with a past medical history of HLD, IBS, anxiety, and removal of a nodule in her throat 10 years ago who presents to the hospital for shortness of breath and chest pressure. Patient is pleasant sitting up comfortably bed. She states that she is feeling much better since admission she is no longer endorsing chest pain/pressure and denies shortness of breath at time of assessment. She notes that when she was having chest pressure it was related to ambulation with associated shortness of breath. Cardiology has been consulted for concern of unstable angina. Patient does continue to a productive cough phlegm stating that she continues to issues with clearing her congestion. Mucinex, pep therapy, and incentive spirometer has been. Patient states that she chronically snores and does intermittently wake gasping however she relates this more to the consistent drainage. ApneaLink ordered to assess for BRITTNY. Patient has no other complaints denying chest pain, palpitations, shortness of breath, nausea/vomiting and abdominal pain. Review of Systems Review of Systems: All systems reviewed & are unremarkable except as noted in HPI and below Exam Narrative: AF HR 80 RR 20 Spo2 95 BP 132/88 General: female in no acute respiratory distress who is nontoxic appearing, lying semi recumbent in bed. HEENT: Normocephalic. Atraumatic. Extraocular movement intact. Sclera clear and anicteric. No facial asymmetry. Chest: Lungs are clear to the uppers with coarseness to the bilateral bases on auscultation. No wheezes or crackles. CV: Heart was regular rate and rhythm. S1-S2. No murmurs, gallops, or rubs. Abd: Abdomen was soft. Nontender. Nondistended. Positive bowel sounds. Ext: No clubbing, cyanosis, or edema. DP pulses bilaterally. Neuro: Patient is alert and oriented x4. Speech is clear. Objective Data Vital Signs Vital Signs: Vital Signs - 24 hr 04/29/25 13:56 04/29/25 15:50 04/29/25 17:07 Temperature 97.4 F L Pulse Rate 71 71 64 Respiratory Rate 20 22 H 20 Blood Pressure 161/92 H 189/86 H 175/79 H Pulse Oximetry 99 94 97 Oxygen Delivery Room Air Room Air 04/29/25 17:59 04/29/25 18:43 04/29/25 20:00 Temperature Pulse Rate 65 63 84 Respiratory Rate 20 15 Blood Pressure 155/77 H 198/75 H Pulse Oximetry 97 98 Oxygen Delivery 04/29/25 20:19 04/29/25 22:16 04/29/25 23:08 Temperature 97.6 F Pulse Rate 72 86 Respiratory Rate 16 Blood Pressure 164/77 H 119/60 Pulse Oximetry 97 97 94 Oxygen Delivery Room Air 04/30/25 00:00 04/30/25 02:45 04/30/25 02:51 Temperature Pulse Rate 68 67 67 Respiratory Rate 16 16 Blood Pressure Pulse Oximetry Oxygen Delivery 04/30/25 04:00 04/30/25 06:37 04/30/25 07:49 Temperature 98.2 F Pulse Rate 62 67 Respiratory Rate 16 Blood Pressure 132/88 Pulse Oximetry 95 Oxygen Delivery Room Air Intake/Output Intake/Output: Intake & Output 04/27/25 04/28/25 04/29/25 04/30/25 23:59 23:59 23:59 23:59 Intake Total 50 1100 Output Total 1100 Balance 50 0 Meds/Results Medications: Active Medications Generic Name Dose Route Start Last Admin Trade Name Freq PRN Reason Stop Dose Admin Albuterol/Ipratropium 3 ml 04/30/25 02:00 04/30/25 02:45 Ipratropium 0.5 Mg/Albuterol Sulfate 2.5 Mg Ampul.Neb 3 Ml INHALATION 3 ml Q6HRT KARYNA Administration Aspirin 81 mg 04/30/25 09:00 Aspirin 81 Mg Enteric Tablet PO DAILY ON LICENSE OF [facility] Doxycycline Hyclate 100 mg 04/30/25 09:00 Doxycycline Hyclate 100 Mg Tablet PO 05/04/25 08:59 Q12HR ON LICENSE OF [facility] Enoxaparin Sodium 40 mg 04/30/25 09:00 Enoxaparin 40 Mg/0.4 Ml Syringe SUB-Q DAILY KARYNA Hydralazine HCl 10 mg 04/29/25 20:17 04/29/25 22:00 Hydralazine Hcl 20 Mg/Ml Vial IV PUSH 10 mg Q6H PRN Administration SBP >160 Ceftriaxone Sodium 1 gm/ 50 mls @ 100 mls/hr 04/30/25 19:00 Sodium Chloride IVPB Q24H KARYNA Lorazepam 1 mg 04/29/25 20:43 04/30/25 03:00 Lorazepam (*Crx) 1 Mg Tablet PO 1 mg DAILY PRN Administration anxiety Melatonin 3 mg 04/29/25 21:00 04/29/25 22:00 Melatonin 3 Mg Tablet PO 3 mg HS KARYNA Administration Morphine Sulfate 2 mg 04/29/25 18:09 04/29/25 18:37 Morphine Sulfate (*Crx) 2 Mg/Ml Inj IV PUSH 2 mg Q2H PRN Administration Pain Rated 7-10 Multivitamins Therapeutic 1 tablet 04/30/25 09:00 Multivitamins Therapeutic Tab (*Bkc) PO DAILY KARYNA Pantoprazole Sodium 40 mg 04/29/25 21:00 04/29/25 22:00 Pantoprazole 40 Mg Tablet PO 40 mg Q12HR KARYNA Administration Perflutren Lipid Microsphere 0 ml 04/29/25 20:54 Perflutren Lipid Microspheres 1.5 Ml Vial Diluted To 10 Ml Total Volume IV PUSH 05/02/25 20:54 ONCE PRN adequate visualization Protocol Sertraline HCl 50 mg 04/30/25 09:00 Sertraline Hcl 50 Mg Tablet PO DAILY KARYNA Trazodone HCl 200 mg 04/29/25 21:00 04/29/25 22:00 Trazodone Hcl 50 Mg Tablet PO 200 mg QHS KARYNA Administration Radiology Results: ITS Impressions Head CT 04/29/25 15:26 IMPRESSION: No acute intracranial process. Right maxillary sinus findings may represent acute sinusitis in the appropriate clinical context. Chest CTA 04/29/25 17:04 IMPRESSION: No CT evidence of acute pulmonary embolus. Small foci of tree-in-bud opacities in the lingula and right middle lobe, may represent atypical infection or aspiration. Mild interstitial edema. Trace bilateral pleural effusions with pleural thickening. Mediastinal lymphadenopathy. Labs Labs: Laboratory Results - last 24 hr 04/29/25 04/29/25 04/29/25 15:55 15:56 18:01 WBC 10.1 H RBC 3.56 L Hgb 10.5 L Hct 31.8 L MCV 89.3 MCH 29.5 MCHC 33.0 RDW 15.6 H Plt Count 279 MPV 9.9 Immature Gran % (Auto) 0.6 H Neut % (Auto) 81.7 H Lymph % (Auto) 13.8 L [place] % (Auto) 3.7 Eos % (Auto) 0.0 Baso % (Auto) 0.2 Lymph # (Auto) 1.39 [place] # (Auto) 0.4 Eos # (Auto) 0.0 Baso # (Auto) 0.0 Abs Immat Gran (auto) 0.06 H Absolute Neuts (auto) 8.3 H Absolute Nucleated RBC 0.000 Nucleated RBC % 0.0 PT 13.5 INR 1.0 APTT 28.6 Sodium 136 L Potassium 3.7 Chloride 103 Carbon Dioxide 25 Anion Gap 8 BUN 11 Creatinine 0.54 L Estim Creat Clear Calc 87 Estimated GFR > 60 Glucose 131 H Lactic Acid 1.1 Calcium 9.0 Total Bilirubin 0.7 AST 62 H ALT 69 H Alkaline Phosphatase 45 Troponin I < 0.012 NT-Pro-B Natriuret Pep 1760 H Total Protein 7.1 Albumin 4.3 Urine Color Yellow Urine Appearance Clear Urine pH 7.5 Ur Specific [place] 1.007 Urine Protein Negative Urine Glucose (UA) Negative Urine Ketones Negative Ur Blood (Man) Negative Urine Nitrate Negative Urine Bilirubin Negative Urine Urobilinogen 0.2 Add Ur Microanalysis Reviewed Leukocyte Esterase Rfl Trace H Urine RBC 0-2 Urine WBC 0-5 Ur Squamous Epith Cells None seen Urine Bacteria None seen Urine Casts 0-2 Nasal MRSA (PCR) Influenza A (RT-PCR) Influenza B (RT-PCR) RSV (RT-PCR) SARS-CoV-2 RNA (RT-PCR) 04/29/25 04/29/25 04/30/25 20:50 21:47 05:11 WBC 11.4 H RBC 3.59 L Hgb 10.4 L Hct 32.1 L MCV 89.4 MCH 29.0 MCHC 32.4 RDW 15.5 H Plt Count 267 MPV 9.6 Immature Gran % (Auto) Neut % (Auto) Lymph % (Auto) [place] % (Auto) Eos % (Auto) Baso % (Auto) Lymph # (Auto) [place] # (Auto) Eos # (Auto) Baso # (Auto) Abs Immat Gran (auto) Absolute Neuts (auto) Absolute Nucleated RBC Nucleated RBC % PT INR APTT Sodium 135 L Potassium 3.1 L Chloride 100 Carbon Dioxide 30 Anion Gap 5 BUN 13 Creatinine 0.60 L Estim Creat Clear Calc 79 Estimated GFR > 60 Glucose 98 Lactic Acid Calcium 9.1 Total Bilirubin 0.6 AST 41 H ALT 62 H Alkaline Phosphatase 45 Troponin I < 0.012 NT-Pro-B Natriuret Pep 1570 H Total Protein 6.6 Albumin 4.0 Urine Color Urine Appearance Urine pH Ur Specific [place] Urine Protein Urine Glucose (UA) Urine Ketones Ur Blood (Man) Urine Nitrate Urine Bilirubin Urine Urobilinogen Add Ur Microanalysis Leukocyte Esterase Rfl Urine RBC Urine WBC Ur Squamous Epith Cells Urine Bacteria Urine Casts Nasal MRSA (PCR) Influenza A (RT-PCR) Negative Influenza B (RT-PCR) Negative RSV (RT-PCR) Negative SARS-CoV-2 RNA (RT-PCR) Negative 04/30/25 06:30 WBC RBC Hgb Hct MCV MCH MCHC RDW Plt Count MPV Immature Gran % (Auto) Neut % (Auto) Lymph % (Auto) [place] % (Auto) Eos % (Auto) Baso % (Auto) Lymph # (Auto) [place] # (Auto) Eos # (Auto) Baso # (Auto) Abs Immat Gran (auto) Absolute Neuts (auto) Absolute Nucleated RBC Nucleated RBC % PT INR APTT Sodium Potassium Chloride Carbon Dioxide Anion Gap BUN Creatinine Estim Creat Clear Calc Estimated GFR Glucose Lactic Acid Calcium Total Bilirubin AST ALT Alkaline Phosphatase Troponin I NT-Pro-B Natriuret Pep Total Protein Albumin Urine Color Urine Appearance Urine pH Ur Specific [place] Urine Protein Urine Glucose (UA) Urine Ketones Ur Blood (Man) Urine Nitrate Urine Bilirubin Urine Urobilinogen Add Ur Microanalysis Leukocyte Esterase Rfl Urine RBC Urine WBC Ur Squamous Epith Cells Urine Bacteria Urine Casts Nasal MRSA (PCR) Not detected Influenza A (RT-PCR) Influenza B (RT-PCR) RSV (RT-PCR) SARS-CoV-2 RNA (RT-PCR) Quality VTE Prophylaxis VTE prophylaxis: pharmacologic ordered
[2025-04-30] MEDS: MULTIVITAMINS THERAPEUTIC TAB (*BKC) 1 TABLET PO (08:55)
[2025-04-30] MEDS: DOXYCYCLINE HYCLATE 100 MG TABLET PO ×2 (08:55→20:48)
[2025-04-30] MEDS: PANTOPRAZOLE 40 MG TABLET PO ×2 (08:55→20:48)
[2025-04-30] MEDS: SERTRALINE HCL 50 MG TABLET PO (08:55)
[2025-04-30] MEDS: ASPIRIN 81 MG ENTERIC TABLET PO (08:55)
[2025-04-30] MEDS: ENOXAPARIN 40 MG/0.4 ML SYRINGE SUB-Q (08:59)
--- NOTE | 2025-04-30 12:58 | P.CONCA_ITS ---
Assessment and Plan Assessment and plan (1) Chest pain: Code(s): R07.9 - Chest pain, unspecified Status: Acute Plan Pneumonia Chest pain atypical likely related to underlying pneumonia Hypertensive urgency on presentation Acute on chronic diastolic heart failure improving Plan Aspirin 81 mg daily Transthoracic echocardiogram Start oral diuretic Lasix 40 mg p.o. daily Further workup based on transthoracic echocardiogram probably patient will benefit from having a stress test after recovery from pneumonia History of Present Illness History of Present Illness Consult date/time: 04/30/25 12:58 Reason For Visit: Pneumonia, pulmonary edema Narrative: Rastafarian 4-year-old female patient presents to the hospital was symptoms for last 3 weeks of shortness of breath present with moderate activity associated with chest discomfort. Chest discomfort midsternal nonradiating pressure-like worse with deep breathing. She was having cough with greenish sputum associated with wheezes. She has symptoms are worse at night. The patient was noted to have elevated high blood pressure and elevated heart rate. Review of Systems 2 Review of Systems: All systems reviewed & are unremarkable except as noted in HPI and below PMFSH Past Medical History Medical History Encounter for immunization Hemorrhoids, internal Irritable bowel syndrome with constipation Insomnia Mixed hyperlipidemia Cataract Colonic polyp Anxiety Surgical History Surgical History H/O elbow surgery History of esophagogastroduodenoscopy esophageal erosion Hx of breast implants, bilateral History of partial hysterectomy Hx of cholecystectomy H/O shoulder surgery Family History Family History Unknown Metastatic cancer Diabetes mellitus Heart failure Mother Family history of diabetes mellitus in first degree relative Sibling Breast cancer Sibling COPD (chronic obstructive pulmonary disease) Heart failure Other Family history of cardiovascular disease Hypertension Social History Social History Smoking packs per day: 1 Smoking cigarettes per day: 20.0 Years smoked: 25 Smoking pack-years: 25.00 Smoking status: Former smoker Tobacco type: cigarettes Second hand tobacco smoke exposure: No Smoking end date: 09/21/99 Additional smoking assessment comments: She quit 20 years ago. Alcohol intake: current Drinks per week: 1 Alcohol use details: occasionally Substance use: never Substance use type: does not use Lack of Transportation: No Lack of Food: Never True Current Housing: I Have Housing Concerned About Future Housing: No Difficulty Paying Gas/Electric Bills: No Difficulty Paying for Meds: No Currently Unemployed: No Education: High School Diploma/GED Difficulty w/ Childcare or Family Care: No Living arrangements: with family Occupation/Education: retired Gender identity (if verbalized by the patient): Female Sexual Orientation (if Verbalized by the Patient): Straight or Heterosexual Spiritual care concerns: No Agree to blood products: Yes Meds Home Medications and Allergies Home Medications ?Medication ?Instructions ?Recorded ?Confirmed ?Type aspirin 81 mg tablet,delayed 81 mg PO DAILY 07/16/22 04/29/25 History release ubidecarenone-omega 3-vit E 25 1 cap PO DAILY 07/16/22 04/29/25 History mg-150 (90-60) mg-200 unit capsule (Co [id number] E-Fish Oil) celecoxib 100 mg capsule 100 mg PO BID 05/27/24 04/29/25 History multivitamin (Daily Multi-Vitamin 1 tablet PO DAILY 05/27/24 04/29/25 History tablet) lorazepam 1 mg tablet 1 mg PO DAILY PRN anxiety #30 tabs 06/20/24 04/29/25 Rx sertraline 50 mg tablet 50 mg PO DAILY #90 tabs 11/15/24 04/29/25 Rx trazodone 100 mg tablet 200 mg (2 x 100 mg) PO QHS #180 04/03/25 04/29/25 Rx tabs omeprazole 40 mg capsule,delayed 40 mg PO BID #180 caps 04/25/25 04/29/25 Rx release albuterol sulfate 90 mcg/actuation 1 inh inhalation Q4H PRN shortness 04/27/25 04/29/25 Rx aerosol inhaler (Ventolin HFA) of breath or wheezing #8.5 grams prednisone 10 mg tablet See Rx Instructions .Route 04/27/25 04/29/25 Rx .COMPLEX 10 days #30 tabs Allergies Allergy/AdvReac Type Severity Reaction Status Date / Time No Known Allergies Allergy Verified 04/29/25 13:59 Vital Signs Vital Signs - 24 hr 04/29/25 13:56 04/29/25 15:50 04/29/25 17:07 Temperature 36.3 C L Pulse Rate 71 71 64 Respiratory Rate 20 22 H 20 Blood Pressure 161/92 H 189/86 H 175/79 H Pulse Oximetry 99 94 97 Oxygen Delivery Room Air Room Air 04/29/25 17:59 04/29/25 18:43 04/29/25 20:00 Temperature Pulse Rate 65 63 84 Respiratory Rate 20 15 Blood Pressure 155/77 H 198/75 H Pulse Oximetry 97 98 Oxygen Delivery 04/29/25 20:19 04/29/25 22:16 04/29/25 23:08 Temperature 36.4 C Pulse Rate 72 86 Respiratory Rate 16 Blood Pressure 164/77 H 119/60 Pulse Oximetry 97 97 94 Oxygen Delivery Room Air 04/30/25 00:00 04/30/25 02:45 04/30/25 02:51 Temperature Pulse Rate 68 67 67 Respiratory Rate 16 16 Blood Pressure Pulse Oximetry Oxygen Delivery 04/30/25 04:00 04/30/25 06:37 04/30/25 07:49 Temperature 36.8 C Pulse Rate 62 67 Respiratory Rate 16 Blood Pressure 132/88 Pulse Oximetry 95 Oxygen Delivery Room Air 04/30/25 08:00 04/30/25 08:40 04/30/25 08:40 Temperature Pulse Rate 73 76 76 Respiratory Rate 16 16 Blood Pressure Pulse Oximetry 95 Oxygen Delivery Room Air 04/30/25 08:50 04/30/25 12:00 Temperature Pulse Rate 80 76 Respiratory Rate 20 Blood Pressure Pulse Oximetry Oxygen Delivery Exam 2 Const: General: comfortable and no acute distress Other: Able to lie flat HENMT: Face/Nose/Sinus: Normal nares present and no epistaxis Mouth: Yes moist mucous membranes Eyes: Sclera: sclerae normal Pupils: Equal, round and reactive pupils present Neck: Neck: supple and no JVD Carotids: no bruits Resp: Auscultation: clear to auscultation bilaterally and lung sounds not diminished Other: No chest wall tenderness Scattered wheezes Cardio: Rate: regular rate Rhythm: regular rhythm Heart sounds: no gallops, no murmurs and no rubs GI: GI Palp: Yes Soft to palpation and No Tenderness to palpation present (GI) Auscultation: normal bowel sounds Skin: General skin exam: normal color, rashes and/or lesions noted and no erythema Other: Warm Neuro: Cranial nerves: Yes Equal, round and reactive pupils present Speech: normal speech Other: No obvious focal deficit or facial asymmetry Extrem: General: no edema Other: Normal capillary refills Intact distal pulses. Results Labs and Meds 04/30/25 05:11 04/30/25 05:11 Lab results: Cardiac Enzymes 04/29/25 04/29/25 04/30/25 Range/Units 15:56 21:47 05:11 AST 62 H 41 H (14-36) U/L Troponin I < 0.012 < 0.012 (0.000-0.034) ng/mL Coagulation 04/29/25 Range/Units 15:56 PT 13.5 (11.1-14.7) Seconds APTT 28.6 (22.3-36.8) Seconds CBC 04/29/25 04/30/25 Range/Units 15:56 05:11 WBC 10.1 H 11.4 H (4.5-10.0) K/mm3 RBC 3.56 L 3.59 L (4.2-5.4) M/mm3 Hgb 10.5 L 10.4 L (12.0-15.0) g/dL Hct 31.8 L 32.1 L (37.0-47.0) % Plt Count 279 267 (150-375) k/mm3 Lymph # (Auto) 1.39 (0.9-3.2) K/mm3 [place] # (Auto) 0.4 (0.1-0.6) K/mm3 Eos # (Auto) 0.0 (0-0.3) K/mm3 Baso # (Auto) 0.0 (0.0-0.1) K/mm3 Comprehensive Metabolic Panel 04/29/25 04/30/25 Range/Units 15:56 05:11 Sodium 136 L 135 L (137-145) mmol/L Potassium 3.7 3.1 L (3.4-5.0) mmol/L Chloride 103 100 (98-107) mmol/L Carbon Dioxide 25 30 (22-30) mmol/L BUN 11 13 (7-17) mg/dL Creatinine 0.54 L 0.60 L (0.7-1.0) mg/dL Glucose 131 H 98 (65-110) mg/dL Calcium 9.0 9.1 (8.4-10.2) mg/dL AST 62 H 41 H (14-36) U/L ALT 69 H 62 H (6-35) U/L Alkaline Phosphatase 45 45 (38-126) U/L Total Protein 7.1 6.6 (6.3-8.2) g/dL Albumin 4.3 4.0 (3.5-5.1) g/dL Intake and Output 04/29/25 04/30/25 04/30/25 23:59 07:59 15:59 Intake Total 50 1100 240 Output Total 1100 Balance 50 0 240 Intake: IV 50 cefTRIAXone 1 gm In Sodium 50 Chloride 0.9% IV 50 ml @ 100 mls/hr IVPB ONCE STA Rx#: [id number] Oral 1100 240 Output: Urine 1100
[2025-04-30] MEDS: ACETAMINOPHEN 325 MG TABLET 650 MG PO (15:03)
[2025-04-30] MEDS: cefTRIAXone 1 GM in SODIUM CHLORIDE 0.9% IV 50 ML 100 ML IVPB (18:27)
[2025-04-30] MEDS: MELATONIN 3 MG TABLET PO (20:48)
[2025-04-30] MEDS: guaiFENesin 12 HR 600 MG TABCR PO (20:48)
[2025-05-01] VITALS (15 sets, daily range): BP systolic 152–153; BP diastolic 65–87; PULSE 60–83; RESP 16–20; TEMP 36.3–36.6; O2SAT 96–100
--- NOTE | 2025-05-01 | ECHO_ITS ---
Patient Info Name: Sheree Cheng Age: 74 years : 1950 Gender: Female Ht: 65 in Wt: 201 lbs BSA: 2.08 m2 HR: 78 bpm BP: 152 / 87 mmHg Heart Rhythm: Sinus Rhythm Technical Quality: Fair Exam Date: 05/01/2025 1:11 PM Patient Status: I Admit Date: 04/29/2025 Exam Type: CA echo dop color flow w con Complete two-dimensional, color flow and Doppler transthoracic echocardiogram is performed with contrast to opacify the left ventricle and to improve the deliniation of the left ventricle endocardial borders. Staff Referring Physician: Deshawn Lima Filler Sifter Machine: Marita Waldrop Attending Provider: Lynda Edwards Contrast/Agitated Saline Contrast/Ag. Saline: Definity Amount: 2.00 ml Administered By: Marita Waldrop Existing IV Access: Yes IV Access Condition: patent with no signs of infiltration Summary 1. Overall very poor quality images. 2. The left ventricle is normal in size and systolic function. The left ventricular ejection fraction is visually estimated to be 60-65%. There are no regional wall motion abnormalities. 3. The mitral valve is not well visualized however Doppler gradients suggest at least mild mitral stenosis. 4. The left atrium is severely dilated. Left Ventricle The left ventricle is normal in size and systolic function. The left ventricular ejection fraction is visually estimated to be 60-65%. There are no regional wall motion abnormalities. Right Ventricle The right ventricle is normal in size and systolic function. Left Atria The left atrium is severely dilated. Right Atria The right atrium is dilated. Atrial Septum The atrial septum is not well visualized. Aortic Valve The aortic valve is trileaflet and opens well. There is no aortic regurgitation. Pulmonic Valve The pulmonic valve is grossly normal. There is no pulmonic valve regurgitation. Mitral Valve The mitral valve is not well visualized however Doppler gradients suggest at least mild mitral stenosis. Tricuspid Valve The tricuspid valve is not well visualized. Pericardium/Pleural Pericardium is normal in appearance with no evidence for significant pericardial effusion. Inferior Vena Cava Inferior vena cava is not well visualized. Aorta The aortic root is not well visualized. Left Ventricular Outflow Tract Name Value Normal LVOT 2D LVOT Diameter 1.9 cm LVOT Doppler LVOT Peak Velocity 127 cm/s LVOT Peak Gradient 6 mmHg LVOT Mean Gradient 3 mmHg LVOT VTI 24 cm LVOT VTI/AV VTI Ratio 1.0 LVOT Stroke Volume 68 ml LVOT CO 5.0 l/min LVOT CI 2.4 l/min/m2 Pulmonic Valve Name Value Normal RVOT Doppler RVOT Peak Velocity 83 cm/s RVOT Peak Gradient 3 mmHg PV Doppler PV Peak Velocity 118 cm/s PV Peak Gradient 6 mmHg Mitral Valve Name Value Normal MV Doppler MV Peak Gradient 10 mmHg MV Mean Gradient 6 mmHg MV Area (Cont Eq VTI) 1.3 cm2 MV Diastolic Function MV E Peak Velocity 157 cm/s MV A Peak Velocity 139 cm/s MV E/A 1.1 MV Decel Time (PW) 410 ms MV Annular TDI MV E/e' (Septal) 41.2 MV E/e' (Lateral) 55.1 MV E/e' (Average) 48.1 Tricuspid Valve Name Value Normal TV Annular TDI TV Lateral Cindy s' Velocity 16.6 cm/s >=9.5 Aortic Valve Name Value Normal AV Doppler AV Peak Velocity 156 cm/s AV Peak Gradient 10 mmHg AV Mean Gradient 4 mmHg AV VTI 25 cm AV Area (Cont Eq VTI) 2.7 cm2 >=3.0 AV Area (Cont Eq Gold) 2.3 cm2 AV DI (Gold) 0.82 AV Regurgitation 2D LVOT Area 2.8 cm2 Ventricles Name Value Normal LV Dimensions 2D/MM IVS Diastolic Thickness (2D) 1.1 cm 0.6-1.0 LVID Diastole (2D) 4.3 cm 3.8-5.2 LVIW Diastolic Thickness (2D) 1.0 cm 0.6-0.9 LVID Systole (2D) 2.9 cm 2.2-3.5 LVOT Diameter 1.9 cm LV Mass (2D Cubed) 155.96 g 67.00-162.00 LV Mass Index (2D Cubed) 75 g/m2 43-95 Relative Wall Thickness (2D) 0.46 <=0.42 LV Fractional Shortening/Ejection Fraction 2D/MM LV Fractional Shortening (2D) 33 % 27-45 LV EF (2D Teichholz) 62 % LV Diastolic Volume (4C MOD) 83 ml LV EF (4C MOD) 78 % LV Diastolic Volume (2C MOD) 52 ml LV EF (2C MOD) 74 % LV Diastolic Volume (BP MOD) 67 ml 46-106 LV Diastolic Volume Index (BP MOD) 32 ml/m2 29-61 LV Systolic Volume (BP MOD) 16 ml 14-42 LV Systolic Volume Index (BP MOD) 8 ml/m2 8-24 LV EF (BP MOD) 76 % 54-74 LV Diastolic Length (4C) 7.8 cm LV Systolic Length (4C) 6.3 cm LV Stroke Volume (4C MOD) 64 ml Atria Name Value Normal LA Dimensions LA Volume (4C A-L) 99 ml LA Volume (BP A-L) 103 ml RA Dimensions RA Area (4C) 21.2 cm2 <=18.0 Report Signatures
[2025-05-01 05:18] LABS: Hematocrit 32.1 % (37.0-47.0); Hemoglobin 10.7 g/dL (12.0-15.0); Mean Corpuscular HGB Conc 33.3 g/dl (32-36); Mean Corpuscular Hemoglobin 29.6 pg (26-34); Mean Corpuscular Volume 88.9 fl (80-100); Platelet Count Result 294 k/mm3 (150-375); Red Blood Count 3.61 M/mm3 (4.2-5.4); White Blood Count 8.4 K/mm3 (4.5-10.0)
--- NOTE | 2025-05-01 05:41 | PCRTNOTE ---
Apnea link was done and got message device contains no recordings
[2025-05-01 05:47] LABS: Alanine Aminotransferase 51 U/L (6-35); Albumin Level 3.9 g/dL (3.5-5.1); Alkaline Phosphatase 46 U/L (38-126); Anion Gap 8 mmol/L (4-12); Aspartate Amino Transferase 29 U/L (14-36); Bilirubin,Total 0.5 mg/dL (0.2-1.3); Blood Urea Nitrogen 9 mg/dL (7-17); Calcium 8.7 mg/dL (8.4-10.2); Carbon Dioxide 28 mmol/L (22-30); Chloride 104 mmol/L (98-107); Estimated CRCL calculation 80 ml/min; Estimated Glomerular Filt Rate > 60; Glucose 104 mg/dL (65-110); Potassium 3.3 mmol/L (3.4-5.0); Sodium 140 mmol/L (137-145); Total Protein 6.5 g/dL (6.3-8.2)
--- NOTE | 2025-05-01 07:36 | PM.IMPN ---
Progress Note: A&P Assessment and Plan (1) Pneumonia: Code(s): J18.9 - Pneumonia, unspecified organism Status: Acute Assessment and Plan: Patient reporting shortness of breaht and chest pressure for past week. Seen by PCP and was given cefdinir and prednisone on 04/27, without improvement. Chest CTA: No PE, Small foci of tree-in-bud opacities in the lingula and right middle lobe, may represent atypical infection or aspiration.Mild interstitial edema. Trace bilateral pleural effusions with pleural thickening. Mediastinal lymphadenopathy. - started on CAP tx: ceftriaxone and doxycycline on 04/30 - Viral PCR: negative for Flu/COVID/RSV - Consider ordering legionella, mycoplasma and pneumococcal - no supplemental O2 requirement - Mucinex, PEP therapy, IS - Duoneb - Patient noted to snore and wakes gasping, states related to drainage however per has been ongoing for a long time. Possible BRITTNY, plan for apnea link tonight Spoke with RT and apnea link performed 04/30 did not record correctly. Repeat apnea link tonight. - Monitor vital signs, I&Os, neuro status and patient is a fall risk - Follow WBC, serum electrolytes, temperature curves and cultures SOB improving. Continues to have productive cough of yellow/green phlegm. Remains hemodynamically stable. (2) Chest pain: Code(s): R07.9 - Chest pain, unspecified Status: Acute Assessment and Plan: Patient complaining of increased chest pressure further exacerbated with ambulation and notes associated shortness of breath. Possibly related to pneumonia however could be unstable angina Chest CTA: No PE, Small foci of tree-in-bud opacities in the lingula and right middle lobe, may represent atypical infection or aspiration.Mild interstitial edema. Trace bilateral pleural effusions with pleural thickening. Mediastinal lymphadenopathy. EKG sinus rhythm Troponin negative x2 Elevated BNP at 1570 Given Lasix 40 mg IV x 1 in the ED for interstitial edema and trace effusions Echocardiogram a.m. Cardiology consulted Aspirin 81 mg daily Start oral diuretic Lasix 40 mg p.o. daily Further workup based on echocardiogram Probably patient will benefit from having a stress test after recovery from pneumonia Continues to deny chest pain/pressure on assessment. (3) HTN (hypertension): Code(s): I10 - Essential (primary) hypertension Status: Acute Assessment and Plan: Patient not on chronic antihypertensives BP elevated on admission Hydralazine 10 mg IV q.6 hours p.r.n. BP currently stable however remains elevated into the 150s. Per chart review patient has had chronic hypertension extending back to 2019. Will start patient on amlodipine 5 mg daily. Continue to monitor. (4) Insomnia: Qualifiers: Insomnia type: unspecified Qualified Code(s): G47.00 - Insomnia, unspecified Code(s): G47.00 - Insomnia, unspecified Status: Acute Assessment and Plan: Continue trazodone Time Spent With Patient Time with patient: 25 - 35 minutes Subjective Date/time seen: 05/01/25 07:36 Interval history: 74-year-old female with a past medical history of HLD, IBS, anxiety, and removal of a nodule in her throat 10 years ago who presents to the hospital for shortness of breath and chest pressure. Patient is pleasant sitting up comfortably in bed. She states that her shortness of breath has improved. Her cough has become increasingly productive since starting the pep therapy and Mucinex. She states that the phlegm remains yellow/green in color. She has no other complaints denying chest pain, palpitations, nausea/vomiting and abdominal pain. Patient was to have an apnea link overnight however per RT the machine did not record patients test thus will obtain a repeat apnea link tonight. Review of Systems Review of Systems: All systems reviewed & are unremarkable except as noted in HPI and below Exam Narrative: AF HR 82 RR 16 Spo2 100 BP 152/87 General: female in no acute respiratory distress who is nontoxic appearing, sitting up in bed. HEENT: Normocephalic. Atraumatic. Extraocular movement intact. Sclera clear and anicteric. No facial asymmetry. Chest: Lungs are clear to the uppers with diminishment to the bilateral bases on auscultation. No wheezes or crackles. CV: Heart was regular rate and rhythm. S1-S2. No murmurs, gallops, or rubs. Abd: Abdomen was soft. Nontender. Nondistended. Positive bowel sounds. Ext: No clubbing, cyanosis, or edema. DP pulses bilaterally. Objective Data Vital Signs Vital Signs: Vital Signs - 24 hr 04/30/25 07:49 04/30/25 08:00 04/30/25 08:40 Temperature Pulse Rate 73 76 Respiratory Rate 16 Blood Pressure Pulse Oximetry 95 Oxygen Delivery Room Air Room Air Fraction of Inspired Oxygen 04/30/25 08:40 04/30/25 08:50 04/30/25 12:00 Temperature Pulse Rate 76 80 76 Respiratory Rate 16 20 Blood Pressure Pulse Oximetry Oxygen Delivery Fraction of Inspired Oxygen 04/30/25 14:00 04/30/25 15:12 04/30/25 15:17 Temperature 97.6 F Pulse Rate 76 67 73 Respiratory Rate 16 19 19 Blood Pressure 134/77 Pulse Oximetry 98 Oxygen Delivery Fraction of Inspired Oxygen 04/30/25 16:00 04/30/25 20:00 04/30/25 20:40 Temperature 97.8 F Pulse Rate 78 74 72 Respiratory Rate 18 Blood Pressure 143/83 H Pulse Oximetry 93 Oxygen Delivery Fraction of Inspired Oxygen 04/30/25 21:09 04/30/25 21:10 05/01/25 00:00 Temperature Pulse Rate 91 91 60 Respiratory Rate 20 20 Blood Pressure Pulse Oximetry 94 Oxygen Delivery Room Air Fraction of Inspired Oxygen 21 05/01/25 03:48 05/01/25 04:00 Temperature 97.3 F L Pulse Rate 78 78 Respiratory Rate 20 Blood Pressure 152/87 H Pulse Oximetry 100 Oxygen Delivery Fraction of Inspired Oxygen Intake/Output Intake/Output: Intake & Output 04/28/25 04/29/25 04/30/25 05/01/25 23:59 23:59 23:59 23:59 Intake Total 50 1820 250 Output Total 1900 800 Balance 50 -80 -550 Meds/Results Medications: Active Medications Generic Name Dose Route Start Last Admin Trade Name Freq PRN Reason Stop Dose Admin Acetaminophen 650 mg 04/30/25 14:52 04/30/25 15:03 Acetaminophen 325 Mg Tablet PO 650 mg Q4H PRN Administration Headache Albuterol/Ipratropium 3 ml 04/30/25 02:00 05/01/25 02:04 Ipratropium 0.5 Mg/Albuterol Sulfate 2.5 Mg Ampul.Neb 3 Ml INHALATION Not Given Q6HRT KARYNA Aspirin 81 mg 04/30/25 09:00 04/30/25 08:55 Aspirin 81 Mg Enteric Tablet PO 81 mg DAILY KARYNA Administration Doxycycline Hyclate 100 mg 04/30/25 09:00 04/30/25 20:48 Doxycycline Hyclate 100 Mg Tablet PO 05/04/25 08:59 100 mg Q12HR KARYNA Administration Enoxaparin Sodium 40 mg 04/30/25 09:00 04/30/25 08:59 Enoxaparin 40 Mg/0.4 Ml Syringe SUB-Q 40 mg DAILY KARYNA Administration Furosemide 40 mg 05/01/25 09:00 Furosemide 40 Mg Tablet PO DAILY KARYNA Guaifenesin 600 mg 04/30/25 21:00 04/30/25 20:48 Guaifenesin 12 Hr 600 Mg Tabcr PO 600 mg Q12HR KARYNA Administration Hydralazine HCl 10 mg 04/29/25 20:17 04/29/25 22:00 Hydralazine Hcl 20 Mg/Ml Vial IV PUSH 10 mg Q6H PRN Administration SBP >160 Ceftriaxone Sodium 1 gm/ 50 mls @ 100 mls/hr 04/30/25 19:00 04/30/25 18:27 Sodium Chloride IVPB 100 mls/hr Q24H KARYNA Administration Lorazepam 1 mg 04/29/25 20:43 04/30/25 15:04 Lorazepam (*Crx) 1 Mg Tablet PO 1 mg DAILY PRN Administration anxiety Melatonin 3 mg 04/29/25 21:00 04/30/25 20:48 Melatonin 3 Mg Tablet PO 3 mg HS KARYNA Administration Multivitamins Therapeutic 1 tablet 04/30/25 09:00 04/30/25 08:55 Multivitamins Therapeutic Tab (*Bkc) PO 1 tablet DAILY KARYNA Administration Pantoprazole Sodium 40 mg 04/29/25 21:00 04/30/25 20:48 Pantoprazole 40 Mg Tablet PO 40 mg Q12HR KARYNA Administration Perflutren Lipid Microsphere 0 ml 04/29/25 20:54 Perflutren Lipid Microspheres 1.5 Ml Vial Diluted To 10 Ml Total Volume IV PUSH 05/02/25 20:54 ONCE PRN adequate visualization Protocol Perflutren Lipid Microsphere 0 ml 04/30/25 13:06 Perflutren Lipid Microspheres 1.5 Ml Vial Diluted To 10 Ml Total Volume IV PUSH 05/03/25 13:06 ONCE PRN adequate visualization Protocol Sertraline HCl 50 mg 04/30/25 09:00 04/30/25 08:55 Sertraline Hcl 50 Mg Tablet PO 50 mg DAILY KARYNA Administration Trazodone HCl 200 mg 04/29/25 21:00 04/30/25 20:53 Trazodone Hcl 50 Mg Tablet PO 200 mg QHS KARYNA Administration Radiology Results: ITS Impressions Head CT 04/29/25 15:26 IMPRESSION: No acute intracranial process. Right maxillary sinus findings may represent acute sinusitis in the appropriate clinical context. Chest CTA 04/29/25 17:04 IMPRESSION: No CT evidence of acute pulmonary embolus. Small foci of tree-in-bud opacities in the lingula and right middle lobe, may represent atypical infection or aspiration. Mild interstitial edema. Trace bilateral pleural effusions with pleural thickening. Mediastinal lymphadenopathy. Labs Labs: Laboratory Results - last 24 hr 04/30/25 05/01/25 06:30 04:59 WBC 8.4 RBC 3.61 L Hgb 10.7 L Hct 32.1 L MCV 88.9 MCH 29.6 MCHC 33.3 RDW 15.4 H Plt Count 294 MPV 9.7 Sodium 140 Potassium 3.3 L Chloride 104 Carbon Dioxide 28 Anion Gap 8 BUN 9 Creatinine 0.59 L Estim Creat Clear Calc 80 Estimated GFR > 60 Glucose 104 Calcium 8.7 Total Bilirubin 0.5 AST 29 ALT 51 H Alkaline Phosphatase 46 Total Protein 6.5 Albumin 3.9 Nasal MRSA (PCR) Not detected Quality VTE Prophylaxis VTE prophylaxis: pharmacologic ordered
[2025-05-01] MEDS: guaiFENesin 12 HR 600 MG TABCR PO ×2 (09:34→20:51)
[2025-05-01] MEDS: ENOXAPARIN 40 MG/0.4 ML SYRINGE SUB-Q (09:34)
[2025-05-01] MEDS: PANTOPRAZOLE 40 MG TABLET PO ×2 (09:35→20:51)
[2025-05-01] MEDS: DOXYCYCLINE HYCLATE 100 MG TABLET PO ×2 (09:35→20:51)
[2025-05-01] MEDS: FUROSEMIDE 40 MG TABLET PO (09:35)
[2025-05-01] MEDS: ASPIRIN 81 MG ENTERIC TABLET PO (09:35)
[2025-05-01] MEDS: MULTIVITAMINS THERAPEUTIC TAB (*BKC) 1 TABLET PO (09:35)
[2025-05-01] MEDS: SERTRALINE HCL 50 MG TABLET PO (09:35)
[2025-05-01] MEDS: IPRATROPIUM 0.5 MG/ALBUTEROL SULFATE 2.5 MG AMPUL.NEB 3 ML INHALATION ×3 (09:50→21:00)
--- NOTE | 2025-05-01 11:42 | PCRCNOTE ---
Apnea link testing performed on 04/30, however the device contained no data. [facility]
[2025-05-01] MEDS: PERFLUTREN LIPID MICROSPHERES 1.5 ML VIAL DILUTED TO 10 ML TOTAL VOLUME IV PUSH (13:30)
--- NOTE | 2025-05-01 14:59 | IVDEFINITY ---
Prior to administration of IV Definity the patient was educated on the risks and benefits of the imaging enhancing agent including potential adverse side effects. The patient verbalized understanding. Allergies were verified. No exclusion criteria were identified and at least one of the following inclusion criteria were met: 1) physician request, 2) patient technically difficult to image (per the [place] [employer] guidelines of two or more segments not discernable within the apical view), or 3) questionable left ventricular function. ?
[2025-05-01] MEDS: cefTRIAXone 1 GM in SODIUM CHLORIDE 0.9% IV 50 ML 100 ML IVPB (18:31)
[2025-05-01] MEDS: ACETAMINOPHEN 325 MG TABLET 650 MG PO (18:45)
[2025-05-01] MEDS: MELATONIN 3 MG TABLET PO (20:51)
[2025-05-02] VITALS (15 sets, daily range): BP systolic 122–149; BP diastolic 55–78; PULSE 65–103; RESP 18–20; TEMP 36.4; O2SAT 95–99
[2025-05-02 05:21] LABS: Hematocrit 34.0 % (37.0-47.0); Hemoglobin 10.9 g/dL (12.0-15.0); Mean Corpuscular HGB Conc 32.1 g/dl (32-36); Mean Corpuscular Hemoglobin 28.7 pg (26-34); Mean Corpuscular Volume 89.5 fl (80-100); Platelet Count Result 287 k/mm3 (150-375); Red Blood Count 3.80 M/mm3 (4.2-5.4); White Blood Count 8.6 K/mm3 (4.5-10.0)
[2025-05-02 05:50] LABS: Alanine Aminotransferase 42 U/L (6-35); Albumin Level 4.0 g/dL (3.5-5.1); Alkaline Phosphatase 49 U/L (38-126); Anion Gap 7 mmol/L (4-12); Aspartate Amino Transferase 27 U/L (14-36); Bilirubin,Total 0.7 mg/dL (0.2-1.3); Blood Urea Nitrogen 7 mg/dL (7-17); Calcium 9.0 mg/dL (8.4-10.2); Carbon Dioxide 30 mmol/L (22-30); Chloride 100 mmol/L (98-107); Estimated CRCL calculation 82 ml/min; Estimated Glomerular Filt Rate > 60; Glucose 110 mg/dL (65-110); Potassium 3.2 mmol/L (3.4-5.0); Sodium 137 mmol/L (137-145); Total Protein 6.5 g/dL (6.3-8.2)
[2025-05-02] MEDS: IPRATROPIUM 0.5 MG/ALBUTEROL SULFATE 2.5 MG AMPUL.NEB 3 ML INHALATION ×2 (07:38→13:18)
[2025-05-02] MEDS: guaiFENesin 12 HR 600 MG TABCR PO (08:23)
[2025-05-02] MEDS: FUROSEMIDE 40 MG TABLET PO (08:23)
[2025-05-02] MEDS: ASPIRIN 81 MG ENTERIC TABLET PO (08:23)
[2025-05-02] MEDS: DOXYCYCLINE HYCLATE 100 MG TABLET PO (08:23)
[2025-05-02] MEDS: ENOXAPARIN 40 MG/0.4 ML SYRINGE SUB-Q (08:24)
[2025-05-02] MEDS: SERTRALINE HCL 50 MG TABLET PO (08:24)
[2025-05-02] MEDS: PANTOPRAZOLE 40 MG TABLET PO (08:24)
[2025-05-02] MEDS: MULTIVITAMINS THERAPEUTIC TAB (*BKC) 1 TABLET PO (08:24)
[2025-05-02] MEDS: ACETAMINOPHEN 325 MG TABLET 650 MG PO (08:28)
--- NOTE | 2025-05-02 14:36 | P.DS_ITS ---
DS: Admitting Diagnosis Discharge Date 05/02/2025 Admitting Diagnosis pneumonia chest pain htn insomnia DS: Discharge Diagnosis Discharge Diagnosis (1) Pneumonia: Code(s): J18.9 - Pneumonia, unspecified organism Status: Acute (2) Chest pain: Code(s): R07.9 - Chest pain, unspecified Status: Acute (3) HTN (hypertension): Code(s): I10 - Essential (primary) hypertension Status: Acute (4) Insomnia: Qualifiers: Insomnia type: unspecified Qualified Code(s): G47.00 - Insomnia, unspecified Code(s): G47.00 - Insomnia, unspecified Status: Acute DS: Summary Hospital Course Reason for hospitalization: pneumonia chest pain htn insomnia Hospital Course: 74-year-old female with a past medical history of HLD, IBS, anxiety, and removal of a nodule in her throat 10 years ago who presents to the hospital for increased chest pressure further exacerbated with ambulation and notes associated shortness of breath. Seen by PCP and was given cefdinir and prednisone on 04/27, without improvement. Not meeting sepsis criteria. Chest CTA showed no PE, Small foci of tree-in-bud opacities in the lingula and right middle lobe, may represent atypical infection or aspiration.Mild interstitial edema. Trace bilateral pleural effusions with pleural thickening. Mediastinal lymphadenopathy. Started on IV antibiotics for pneumonia treatment. Patient noted to snore and wakes gasping, stated related to drainage however per has been ongoing for a long time. Apnea link obtained. Discussed patients apnea link with pulmonology Dr. Hui, no oxygen requirement at this time. Strongly encouraged patient to obtain an official sleep study per PCP referral. She stated understanding. Patient transitioned to oral antibiotics to complete the course to pneumonia. She denied shortness of breath and cough. Patients chest pain/pressure Possibly related to pneumonia however could be unstable angina. EKG sinus rhythm. Troponin negative x2. Elevated BNP at 1570. Given Lasix 40 mg IV x 1 in the ED for interstitial edema and trace effusions. Echocardiogram unremarkable. Cardiology consulted and patient will benefit from having a stress test after recovery from pneumonia. Discussed patient echo results with cardiology [employer] Carrie Whitman who states that patient does not need to remain on the Lasix at this time. Patient aware of the cardiology follow up. Throughout admission patient continued to be hypertensive. Started on amlodipine 5 with blood pressure improvement. Discussed with patient that she is to monitor blood pressure and record the readings daily for PCP follow-up. Patient had no complaints at time of discharge denying chest pain, shortness a breath, palpitations, nausea/vomiting, and dizziness/lightheadedness. Patient was able to ambulate throughout the medical floor without assistance. Patient discharged home in a stable condition. She is to follow up with her primary care provider in 1 week and Cardiology as scheduled. Status at Discharge Functional status at discharge: independent ambulation Time Spent with Patient Time attestation: Total time spent providing and/or coordinating discharge services: Time spent: Greater than 30 minutes Exam Narrative: AF HR 83 RR 20 Spo2 98 BP 122/69 General: female in no acute respiratory distress who is nontoxic appearing, sitting up in bed and ambulating the halls of the medical floor. HEENT: Normocephalic. Atraumatic. Extraocular movement intact. Sclera clear and anicteric. No facial asymmetry. Chest: Lungs are clear on auscultation. No wheezes or crackles. CV: Heart was regular rate and rhythm. Abd: Abdomen was soft. Nontender. Nondistended. Positive bowel sounds. DS: Data Data Completed and Pending Completed studies during hospitalization: Chest CTA Head CT Labs on day of discharge: Labs from last 24 hours 05/02/25 05:04 WBC 8.6 RBC 3.80 L Hgb 10.9 L Hct 34.0 L MCV 89.5 MCH 28.7 MCHC 32.1 RDW 15.4 H Plt Count 287 MPV 9.4 Sodium 137 Potassium 3.2 L Chloride 100 Carbon Dioxide 30 Anion Gap 7 BUN 7 Creatinine 0.58 L Estim Creat Clear Calc 82 Estimated GFR > 60 Glucose 110 Calcium 9.0 Total Bilirubin 0.7 AST 27 ALT 42 H Alkaline Phosphatase 49 Total Protein 6.5 Albumin 4.0 Preliminary micro results at discharge 04/29/25 18:01 Blood Culture - Preliminary Blood 04/29/25 18:01 Blood Culture - Preliminary Blood Discharge Plan Discharge Attending physician on discharge: Petr Doyle Consulting providers: Jackie Vazquez; Jensen Schroeder Discharging Clinician: Jackie Vazquez Anticipated Discharge Date/Time: 05/02/25 14:28 Patient Disposition: Home Activity: as tolerated Diet: as tolerated and heart healthy Discharge Instructions: Discharge disposition: Patient admitted to the hospital for shortness of breath and chest pressure Evaluated by cardiology Echo with normal heart function Per cardiology patient to follow up in office for stress test, call for appointment If chest pain/pressure recurs return to the hospital for further evaluation Patient diagnosed with pneumonia Take medications as prescribed even if feeling better Doxycycline Augmentin twice a day, course to be completed on 05/07 Attached is information on these medications Monitor blood pressures, document daily readings for cardiology and PCP follow up appointment Patient remained hypertensive throughout admission Started on amlodipine 5 mg daily, attached is information on this medication Take caution while standing, rising, or moving Change positions slowly taking a break between each position change If you standing feel dizzy sit back down and take a break Encouraged to continue with yearly vaccinations Return to the emergency department if he developed sudden shortness of breath, chest pain, nausea, vomiting, upset stomach or intractable diarrhea Return to the emergency department if you develop fever greater than 100.5 Follow-up with the primary care physician within 1-2 weeks Thank you for choosing [facility] for your healthcare needs Patient Instructions: Antibiotic Form, Doxycycline (By mouth), Aspirin (By mouth), Amoxicillin/Clavulanate Potassium (By mouth), Amlodipine (By mouth), Pneumonia (DC) Patient Language: Spanish Stand Alone Forms: General Discharge Information Follow-up/Referrals: Gregor Caldwell MD [Physician] - Call for Appointment Linda Pepe MD [Primary Care Provider] - 1 Week Discharge Medications: New amlodipine [Norvasc] 5 mg Tablet 5 mg PO DAILY Qty: 30 0RF doxycycline hyclate 100 mg Tablet 100 mg PO Q12HR Qty: 5 0RF amoxicillin-pot clavulanate 875-125 mg tablet 1 tablet PO Q12H Qty: 10 0RF Continued albuterol sulfate [Ventolin HFA] 90 mcg/actuation HFA aerosol inhaler 1 inh inhalation Q4H PRN (Reason: shortness of breath or wheezing) Qty: 8.5 1RF aspirin 81 mg tablet,delayed release (DR/EC) 81 mg PO DAILY Co [id number] E-Fish Oil 25-150-200 mg-mg-unit capsule 1 cap PO DAILY lorazepam 1 mg tablet 1 mg PO DAILY PRN (Reason: anxiety) Qty: 30 0RF multivitamin [Daily Multi-Vitamin] Tablet 1 tablet PO DAILY celecoxib 100 mg capsule 100 mg PO BID sertraline 50 mg tablet 50 mg PO DAILY Qty: 90 0RF trazodone 100 mg tablet 200 mg PO QHS Qty: 180 1RF omeprazole 40 mg capsule,delayed release(DR/EC) 40 mg PO BID Qty: 180 1RF Discontinued prednisone 10 mg tablet See Rx Instructions .Route .COMPLEX 10 Days Qty: 30 0RF Rx Instructions: 5 tab daily for 2 day 4 tab daily for 2 day 3 tab daily for 2 day 2 tab daily for 2 day 1 tab daily for 2 day then dc ; Date of admission: 04/29/25 18:09 Primary Care Provider: Linda Pepe Admitting Provider: Lynda Edwards Attending physician on admission: Lynda Edwards Condition: Stable Hospitalist MIPS Heart Failure (Exclusion) Patient has history of Heart Transplant or Left Ventricular Assistive Device?: No IF YES, STOP HERE Heart Failure (Qualifier) Patient has current or prior documentation of LVEF less than or equal to 40%, or mod/servere depressed LVSF?: No IF NO, STOP HERE
== END 2025-05-02 15:30 | disposition home or self-care (01) ==
LOC: ANHED 15:07 → ANH2MED 19:23
PROVIDERS: Student in an Organized Health Care Education/Training Program; Admitting Provider General Practice; Emergency Provider Emergency Medicine; PCP Family Medicine; Visit Provider General Practice
DX: J18.9 Pneumonia, unspecified organism (principal); R09.02 Hypoxemia; R59.0 Localized enlarged lymph nodes; I16.0 Hypertensive urgency; R07.9 Chest pain, unspecified; G47.00 Insomnia, unspecified; J81.1 Chronic pulmonary edema; I11.0 Hypertensive heart disease with heart failure; I50.33 Acute on chronic diastolic (congestive) heart failure; E78.2 Mixed hyperlipidemia; Z87.891 Personal history of nicotine dependence; Z20.822 Contact with and (suspected) exposure to COVID-19
CPT/HCPCS: 36415; 70450; 71275; 80053; 81001; 83605; 83880; 84484; 85025; 85027; 85610; 85730; 87637; 87641; 93005; 94618; 94640; 94667; 94762; 96365; 96367; 96372; 96375; 96376; 99285; A9270; C8929; G0378; J0360; J0456; J0696; J1650; J1938; J2270; J7050; Q9957; Q9967

== ENCOUNTER 2025-06-02 10:36 | Outpatient (CLI) | payer MEDICARE, SELFPAY ==
--- NOTE | ~2025-06-02 | XR_ITS ---
EXAMINATION: XR chest 2V, 06/02/2025 10:42 CDT HISTORY: J18.9 - Pneumonia, unspecified organism COMPARISON: No comparisons available. Technique: 2 views obtained. Findings: The lungs are clear, no effusion. No pneumothorax. Heart is normal size. Mediastinal and hilar contours are within normal limits. Bony thorax no acute abnormality. Impression: No acute cardiopulmonary abnormality. Reviewed, dictated and finalized at location A. Impression: No acute cardiopulmonary abnormality.
== END 2025-06-02 10:37 | disposition home or self-care (01) ==
LOC: MICIMG 10:38
PROVIDERS: PCP Nurse Practitioner Family; Visit Provider Nurse Practitioner Family
DX: J18.9 Pneumonia, unspecified organism (principal); R05.3 Chronic cough
CPT/HCPCS: 71046

== ENCOUNTER 2025-07-18 10:26 | Outpatient (CLI) | payer MEDICARE, SELFPAY ==
--- NOTE | ~2025-07-18 | US_ITS ---
EXAMINATION: US soft tissue UE LT, 07/18/2025 10:30 CDT HISTORY: D36.7 - Benign neoplasm of other specified sites Comparison: None Technique: Delacruz-scale and color Doppler images were obtained. Findings: Correlating with the palpable areas there is no abnormal mass or mass effect identified. There is no abnormal flow IMPRESSION: Unremarkable exam. If symptoms persist correlate with CT or MRI Reviewed, dictated and finalized at location P.
== END 2025-07-18 10:27 | disposition home or self-care (01) ==
LOC: MICIMG 10:27
PROVIDERS: PCP Nurse Practitioner Family; Visit Provider Nurse Practitioner Family
DX: D36.7 Benign neoplasm of other specified sites (principal); R60.9 Edema, unspecified
CPT/HCPCS: 76882